=== PATIENT | female | born 1945 | race Caucasian/White ===

== ENCOUNTER 2017-04-07 09:00 | Outpatient (CLI) ==
[2015-08-26 09:44] VITALS: BMI 30.4
--- NOTE | 2017-04-08 08:47 | MAMMO ---
EXAM: Bilateral digital screening mammogram (2-D and 3-D) History: Screening Comparison: Bilateral mammogram 02/25/2016 Findings: MLO and CC views of bilateral breasts demonstrate heterogeneously dense breast parenchyma which can obscure small lesions. CAD was reviewed by the radiologist. Tomosynthesis was performed. Stable benign bilateral vascular calcifications. There are no dominant masses, no suspicious microc alcifications and no architectural distortions Impression: Benign stable mammogram. Recommend followup routine screening mammography in 1 year. BIRADS 2
== END 2017-04-07 09:01 | disposition home or self-care (01) ==
LOC: RAD 09:00
PROVIDERS: ATTEND Internal Medicine
DX: Z12.31 Encounter for screening mammogram for malignant neoplasm of breast (principal)
CPT/HCPCS: 77067

== ENCOUNTER 2017-08-09 06:16 | Day surgery (SDC) ==
[2015-08-26 09:44] VITALS: BMI 30.4
[2017-08-09] MEDS ORDERED: LIDOCAINE 1% 20 ML MDV ID STA (07:04)
[2017-08-09] MEDS ORDERED: DIPRIVAN 20 ML VIAL IVP ONE (08:31)
[2017-08-09] MEDS ORDERED: VERSED ONE (08:31)
[2017-08-09 10:12] VITALS: BP 123/71; TEMP 98
--- NOTE | 2017-08-09 14:33 | OP ---
INDICATIONS FOR PROCEDURE: 72 year old female presents for colonoscopy exam. She had change in her bowl habits with increasing constipation. She has a family history of colon polyps involving her mother in her 30's. MEDICATIONS: SEE ANESTHESIA NOTES. PROCEDURE: COLONOSCOPY. REPORT: The risks, benefits, alternatives and limitations were discussed in detail with the patient. Informed consent was obtained. After adequate sedation was achieved, a digital rectal exam revealed good tone, no masses. The colonoscope was introduced into the rectum and advanced under direct visual guidance to the cecum. The cecum was identified by the appendiceal orifice and IC valve. I then slowly withdrew the scope in circumferential manner and examined the mucosa quite carefully. I looked on the proximal and distal sides of the folds and flexure as best as possible. I was able to retroflex the scope in the right colon and left colon to increase visualization. The colonic mucosa was unremarkably it's entire length except for several small mouth diverticuli scattered throughout the sigmoid area. The anal canal was unremarkable on retroflex view. The prep was good and the withdraw time was 11 minutes and 22 seconds. The patient tolerated the procedure well with stable vital signs and pulse oximetry throughout. IMPRESSION: 1. Diverticulosis RECOMMENDATIONS: 1. High fiber diet 2. Miralax daily and she was instructed to titrate the dose as needed to help with her constipation 3. We will see her back in the office as needed 4. Screening colonoscopy examination again in 10 years if clinically appropriate at that time. ADDENDUM: I spoke to the patient afterwards with her strong family history of multiple colon polyps involving her mother at a young age. I recommend surveillance colonoscopy examination again in 5 years and she was in agreement. DELICIA
== END 2017-08-09 10:00 | disposition home or self-care (01) ==
LOC: SURG 06:16
PROVIDERS: ATTEND Internal Medicine Gastroenterology
DX: K59.00 Constipation, unspecified (principal); K57.30 Diverticulosis of large intestine without perforation or abscess without bleeding; Z83.71 Family history of colonic polyps

== ENCOUNTER 2017-08-29 12:31 | Inpatient (IN) | payer OTHER ==
[2017-08-29] MEDS ORDERED: ATROPINE SULFATE PFS IVP PRN (14:37)
[2017-08-29] MEDS ORDERED: TYLENOL PO PRN (14:37)
[2017-08-29] MEDS ORDERED: MORPHINE 4 MG/ML VIAL IVP PRN (14:37)
[2017-08-29] MEDS ORDERED: VISTARIL INJ IM PRN (14:37)
[2017-08-29] MEDS ORDERED: NITROSTAT SL PRN (14:37)
[2017-08-29] MEDS ORDERED: SOLU-CORTEF 100 MG 125 MG in SODIUM CHLORIDE 100 ML IV ONE (15:10)
[2017-08-29] MEDS: DEXTROSE 5%-1/2NS IV SOLUTION 1,000 ML IV SCH (15:50)
[2017-08-29] MEDS: ROCEPHIN 1 GM in SODIUM CHLORIDE 50 ML IV SCH (15:57)
[2017-08-29] MEDS: ZITHROMAX PO SCH (15:58)
[2017-08-29] MEDS: SOLU-CORTEF 250 MG IVP SCH ×2 (16:02→21:11)
--- NOTE | 2017-08-29 16:36 | DI ---
EXAM: Two-view chest HISTORY: Shortness of breath TECHNIQUE: Frontal and lateral views of the chest were obtained. Comparison 08/26/2015. FINDINGS: The heart is normal size. Lungs are clear. The pulmonary vasculature appears normal. Po stoperative changes of left total shoulder arthroplasty are again seen. IMPRESSION: No active cardiopulmonary disease.
[2017-08-29] MEDS: XOPENEX 1.25 MG NEB SCH (16:45)
[2017-08-29] MEDS: HUMULIN R SUBCUT PRN ×2 (17:37→21:10)
[2017-08-29] MEDS ORDERED: AMARYL ONE (20:59)
[2017-08-29] MEDS ORDERED: NON-FORMULARY MEDICATION (Glimepiride [Amaryl] 4 MG) PO SCH (21:00)
[2017-08-29] MEDS ORDERED: NON-FORMULARY MEDICATION (Temazepam [Temazepam] 30 MG) PO SCH (21:00)
[2017-08-29] MEDS ORDERED: RESTORIL ONE (21:00)
[2017-08-29] MEDS ORDERED: DUONEB NEB SCH (21:00)
[2017-08-29] MEDS: REQUIP PO SCH (21:10)
[2017-08-29] MEDS: SYMBICORT 160-4.5 MCG INHALER IH SCH (21:10)
[2017-08-29] MEDS: NEURONTIN PO SCH (21:11)
[2017-08-30] MEDS: XOPENEX 1.25 MG NEB SCH ×5 (01:03→23:25)
[2017-08-30] MEDS ORDERED: DUONEB NEB PRN (01:23)
[2017-08-30] MEDS: DEXTROSE 5%-1/2NS IV SOLUTION 1,000 ML IV SCH ×2 (04:49→17:45)
[2017-08-30] MEDS: SOLU-CORTEF 250 MG IVP SCH ×3 (04:51→23:53)
[2017-08-30] MEDS: HUMULIN R SUBCUT PRN ×3 (05:54→21:47)
[2017-08-30] MEDS ORDERED: ASPIRIN CHEWABLE PO SCH (08:00)
[2017-08-30] MEDS ORDERED: NON-FORMULARY MEDICATION (Carvedilol [Coreg] 25 MG) PO SCH (08:00)
[2017-08-30] MEDS ORDERED: NON-FORMULARY MEDICATION (Metformin Hcl [Glucophage] 1,000 MG) PO SCH (08:00)
[2017-08-30] MEDS: ROCEPHIN 1 GM in SODIUM CHLORIDE 50 ML IV SCH (08:54)
[2017-08-30] MEDS: ZESTORETIC 20-12.5 MG TAB PO SCH (08:54)
[2017-08-30] MEDS: REQUIP PO SCH ×2 (08:55→21:44)
[2017-08-30] MEDS: JARDIANCE PO SCH (08:55)
[2017-08-30] MEDS: NEURONTIN PO SCH ×2 (08:55→21:44)
[2017-08-30] MEDS: TRIGLIDE PO SCH (08:56)
[2017-08-30] MEDS: COREG PO SCH ×2 (08:56→17:45)
[2017-08-30] MEDS: GLUCOPHAGE PO SCH ×2 (08:56→17:44)
[2017-08-30] MEDS: NORVASC PO SCH (08:57)
[2017-08-30] MEDS: AMARYL PO SCH ×2 (08:57→17:46)
[2017-08-30] MEDS: PLAVIX PO SCH (08:57)
[2017-08-30] MEDS: PROTONIX PO SCH (08:57)
[2017-08-30] MEDS: OMEGA-3 FISH OIL PO SCH (08:57)
[2017-08-30] MEDS: ZITHROMAX PO SCH (08:58)
[2017-08-30] MEDS: SYMBICORT 160-4.5 MCG INHALER IH SCH ×2 (08:58→21:43)
[2017-08-30] MEDS: JANUVIA PO SCH (08:58)
[2017-08-30] MEDS: ASPIRIN EC PO SCH (08:59)
[2017-08-30] MEDS ORDERED: [UNRECOGNIZED DRUG - OTHER] PO SCH (09:00)
[2017-08-30] MEDS ORDERED: NON-FORMULARY MEDICATION (Sitagliptin Phosphate 100 MG) PO SCH (09:00)
[2017-08-30] MEDS ORDERED: FISH OIL PO SCH (09:00)
[2017-08-30] MEDS ORDERED: FATTY ACIDS PO SCH (09:00)
[2017-08-30] MEDS ORDERED: OMEGA PO SCH (09:00)
[2017-08-30] MEDS ORDERED: NON-FORMULARY MEDICATION (Lovastatin [Lovastatin] 40 MG) PO SCH (09:00)
[2017-08-30] MEDS ORDERED: EMPAGLIFLOZIN PO SCH (09:00)
--- NOTE | 2017-08-30 11:07 | PCM.PROG ---
Attending Provider: ATTENDING PROVIDER: Dr. BRINDA SMITH This patient is seen with Yulia Luis, Nurse Practitioner. DATE OF SERVICE: 08/30/17 SUBJECTIVE: This 72 year old WHITE/ F was hospitalized 08/29/17. The patient is sitting in bed alert. She is doing better. She is admitted with acute bronchitis and sinusitis and is feeling a lot better, coughing less. No PND, no orthopnea. No fever or chills. REVIEW OF SYSTEMS: CONSTITUTIONAL: No night sweats. No fatigue, malaise, lethargy. No fever or chills. HEENT: Eyes: No visual changes. No eye pain. No eye discharge. ENT: No runny nose. No epistaxis. No sinus pain. No odynophagia. No congestion. RESPIRATORY: Less cough. No congestion. No hemoptysis. No shortness of breath. CARDIOVASCULAR: No angina symptoms. No CHF symptoms. No atypical chest pain for CAD. No palpitations. No orthopnea.. GASTROINTESTINAL: No abdominal pain. No nausea or vomiting. No diarrhea or constipation. No hematemesis. No hematochezia. GENITOURINARY: No urgency. No frequency. No dysuria. No hematuria. No obstructive symptoms. No discharge. No pain. No significant abnormal bleeding. MUSCULOSKELETAL: No musculoskeletal pain; no joint swelling. NEUROLOGICAL: Awake, alert, oriented to time, place and person. No headache. No neck pain. No syncope. No seizures. No dizziness. PSYCHIATRIC: Not anxious. No depression. No suicidal thoughts. No homicidal thoughts. SKIN: No rash. No lesions. No wounds. ENDOCRINE: No unexplained weight loss. No weight gain. HEMATOLOGIC/LYMPHATIC: No anemia. No purpura. No petechiae. No prolonged or excessive bleeding. No palpable lymph nodes. PHYSICAL EXAMINATION: GENERAL: The patient is awake, alert and oriented, sitting in bed in no distress. VITAL SIGNS: Temperature 97.7 F, Pulse 71, Respiratory Rate 18, BP 117/71, Pulse Ox 98% HEENT: Head normocephalic, atraumatic. Eyes: Extraocular muscles are intact. Pupils are equal, round and reactive to light and accommodation. Ears: No lesions. Nose appeared normal. Throat: No exudate or erythema. NECK: Supple. No JVD, no carotid bruit. No lymphadenopathy or thyromegaly. LUNGS: Decreased breath sounds. Clear to auscultation. Percussion note normal. Chest symmetrical. HEART: S1, S2, no S3. No murmurs. No cyanosis or clubbing. No ascites. Pulses: Dorsalis pedis and posterior tibial pulses +1 to +2 both sides. ABDOMEN: Soft. Non-tender. Bowel sounds active. No CVA tenderness. No mass felt. EXTREMITIES: No edema. Full range of motion of all extremities, equal. NEUROLOGIC: No focal deficit. Cranial nerves II through XII are grossly intact. No headache, no double vision or headache. SKIN: Not dry. Intact. Turgor-normal. LYMPHATIC: No palpable lymph nodes/no lymphedema. MUSCULOSKELETAL: Normal joints with no swelling. Muscle tone is normal. LAB REVIEW: 08/30/17 04:30 08/30/17 04:30 08/30/17 04:30: WBC 14.13 H, RBC 4.20, Hgb 12.5, Hct 37.3, MCV 88.8, MCH 29.8, MCHC 33.5, RDW Coeff of Jerome 14.4, Plt Count 283, Immature Gran % (Auto) 1.5, Neut % (Auto) 83.0, Lymph % (Auto) 11.3, [place] % (Auto) 4.0, Eos % (Auto) 0.1, Baso % (Auto) 0.1, Immature Gran # (Auto) 0.2, Neut # (Auto) 11.8 H, Lymph # ( Auto) 1.6, [place] # (Auto) 0.6, Eos # (Auto) 0.0, Baso # (Auto) 0.0 08/30/17 04:30: Sodium 136, Potassium 3.6, Chloride 100, Carbon Dioxide 24, Anion Gap 15.6, BUN 39 H, Creatinine 1.11, Estimated GFR (MDRD) 48.00, BUN/ Creatinine Ratio 35.13, Glucose 302 H, Calcium 10.9 H, Total Bilirubin 0.5, AST 9 L, ALT 21, Alkaline Phosphatase 55, Total Protein 6.0, Albumin 3.3 L, Globulin 2.7, Albumin/Globulin Ratio 1.22 08/29/17 22:44: Total Creatine Kinase 29, Troponin I 0.0120 08/29/17 22:34: Urine Color Yellow, Urine Clarity Clear, Urine pH 5.0, Ur Specific Webb 1.010, Urine Protein Negative, Urine Glucose (UA) 2+, Urine Ketones Negative, Urine Blood Negative, Urine Nitrite Negative, Urine Bilirubin Negative, Urine Urobilinogen 0.2, Ur Leukocyte Esterase Negative 08/29/17 19:15: Influ A Molecular Assay Negative by naat, Influ B Molecular Assay Negative by naat 08/29/17 14:50: Sodium 140, Potassium 4.2, Chloride 102, Carbon Dioxide 23, Anion Gap 19.2, BUN 27 H, Creatinine 1.09, Estimated GFR (MDRD) 49.00, BUN/ Creatinine Ratio 24.77, Glucose 270 H, Calcium 11.1 H, Total Bilirubin 0.6, AST 14 L, ALT 24, Alkaline Phosphatase 65, Total Creatine Kinase 45, Troponin I < 0.0100, Total Protein 7.2, Albumin 3.8, Globulin 3.4, Albumin/Globulin Ratio 1.12 08/29/17 14:50: WBC 14.48 H, RBC 4.67, Hgb 13.8, Hct 41.7, MCV 89.3, MCH 29.6, MCHC 33.1, RDW Coeff of Jerome 14.6, Plt Count 292, Immature Gran % (Auto) 1.5, Neut % (Auto) 84.1, Lymph % (Auto) 11.4, [place] % (Auto) 2.8, Eos % (Auto) 0.1, Baso % (Auto) 0.1, Immature Gran # (Auto) 0.2, Neut # (Auto) 12.2 H, Lymph # ( Auto) 1.7, [place] # (Auto) 0.4, Eos # (Auto) 0.0, Baso # (Auto) 0.0 ASSESSMENT: 1. Acute bronchitis pneumonitis resolving 2. Chronic lung disease PLAN: 1. Discontinue Temazepam. 2. Klonopin 1 mg at night 3. Continue steroids, antibiotics, and nebs treatment. Plan and coordination of the patient's care discussed in the presence of [employer] Consultant and nurse. CONDITION: Stable SCRIBED BY: IKE PIERCE Rug Hooker scribed while in presence of service performed by Dr. Smith/Yulia Luis APRN on 08/30/17 ([id number])
[2017-08-30] MEDS: MEVACOR PO SCH (17:45)
[2017-08-30] MEDS ORDERED: RESTORIL PO SCH (21:00)
[2017-08-30] MEDS ORDERED: KLONOPIN PO SCH (21:00)
[2017-08-31] MEDS: SOLU-CORTEF 250 MG IVP SCH ×2 (05:10→20:52)
[2017-08-31] MEDS: XOPENEX 1.25 MG NEB SCH ×4 (05:12→22:30)
[2017-08-31] MEDS: PROTONIX PO SCH (05:40)
[2017-08-31] MEDS: HUMULIN R SUBCUT PRN ×3 (05:58→17:19)
[2017-08-31] MEDS: ROCEPHIN 1 GM in SODIUM CHLORIDE 50 ML IV SCH (08:47)
[2017-08-31] MEDS: REQUIP PO SCH ×2 (08:50→21:44)
[2017-08-31] MEDS: PLAVIX PO SCH (08:50)
[2017-08-31] MEDS: ZESTORETIC 20-12.5 MG TAB PO SCH (08:50)
[2017-08-31] MEDS: JARDIANCE PO SCH (08:50)
[2017-08-31] MEDS: COREG PO SCH ×2 (08:52→17:02)
[2017-08-31] MEDS: TRIGLIDE PO SCH (08:52)
[2017-08-31] MEDS: AMARYL PO SCH ×2 (08:52→17:01)
[2017-08-31] MEDS: JANUVIA PO SCH (08:52)
[2017-08-31] MEDS: NORVASC PO SCH (08:53)
[2017-08-31] MEDS: GLUCOPHAGE PO SCH ×2 (08:53→17:00)
[2017-08-31] MEDS: ASPIRIN EC PO SCH (08:54)
[2017-08-31] MEDS: NEURONTIN PO SCH ×2 (08:54→21:44)
[2017-08-31] MEDS: OMEGA-3 FISH OIL PO SCH (08:54)
[2017-08-31] MEDS: ZITHROMAX PO SCH (08:54)
[2017-08-31] MEDS: SYMBICORT 160-4.5 MCG INHALER IH SCH ×2 (08:58→21:44)
--- NOTE | 2017-08-31 10:58 | PCM.PROG ---
Attending Provider: ATTENDING PROVIDER: Dr. BRINDA SMITH This patient is seen with Yulia Luis, Nurse Practitioner. DATE OF SERVICE: 08/31/17 SUBJECTIVE: This 72 year old WHITE/ F was hospitalized 08/29/17. The patient is sitting up in bed, alert. She has been up to bathroom, feels good. She is still somewhat dizzy. REVIEW OF SYSTEMS: CONSTITUTIONAL: Weakness. No night sweats. No malaise, lethargy. No fever or chills. HEENT: Eyes: No visual changes. No eye pain. No eye discharge. ENT: No runny nose. No epistaxis. No sinus pain. No odynophagia. No congestion. RESPIRATORY: Cough. No congestion. No hemoptysis. No shortness of breath. CARDIOVASCULAR: No angina symptoms. No CHF symptoms. No atypical chest pain for CAD. No palpitations. No orthopnea.. GASTROINTESTINAL: No abdominal pain. No nausea or vomiting. No diarrhea or constipation. No hematemesis. No hematochezia. GENITOURINARY: No urgency. No frequency. No dysuria. No hematuria. No obstructive symptoms. No discharge. No pain. No significant abnormal bleeding. MUSCULOSKELETAL: No musculoskeletal pain; no joint swelling. NEUROLOGICAL: Awake, alert, oriented to time, place and person. No headache. No neck pain. No syncope. No seizures. No dizziness. PSYCHIATRIC: Not anxious. No depression. No suicidal thoughts. No homicidal thoughts. SKIN: No rash. No lesions. No wounds. ENDOCRINE: No unexplained weight loss. No weight gain. HEMATOLOGIC/LYMPHATIC: No anemia. No purpura. No petechiae. No prolonged or excessive bleeding. No palpable lymph nodes. PHYSICAL EXAMINATION: GENERAL: The patient is awake, alert and oriented, lying in bed in no distress. VITAL SIGNS: Temperature 97.6 F, Pulse 70, Respiratory Rate 18, BP 102/67, Pulse Ox 93% HEENT: Head normocephalic, atraumatic. Eyes: Extraocular muscles are intact. Pupils are equal, round and reactive to light and accommodation. Ears: No lesions. Nose appeared normal. Throat: No exudate or erythema. NECK: Supple. No JVD, no carotid bruit. No lymphadenopathy or thyromegaly. LUNGS: Diminished breath sounds with rhonchi on the right. Percussion note normal. Chest symmetrical. HEART: S1, S2, no S3. No murmurs. No cyanosis or clubbing. No ascites. Pulses: Dorsalis pedis and posterior tibial pulses +1 to +2 both sides. ABDOMEN: Soft. Non-tender. Bowel sounds active. No CVA tenderness. No mass felt. EXTREMITIES: No edema. Full range of motion of all extremities, equal. NEUROLOGIC: No focal deficit. Cranial nerves II through XII are grossly intact. No headache, no double vision or headache. SKIN: Not dry. Intact. Turgor-normal. LYMPHATIC: No palpable lymph nodes/no lymphedema. MUSCULOSKELETAL: Normal joints with no swelling. Muscle tone is normal. LAB REVIEW: 08/31/17 05:00 08/31/17 05:00 08/31/17 05:00: WBC 13.25 H, RBC 4.24, Hgb 12.7, Hct 37.7, MCV 88.9, MCH 30.0, MCHC 33.7, RDW Coeff of Jerome 14.1, Plt Count 251, Immature Gran % (Auto) 1.3, Neut % (Auto) 82.9, Lymph % (Auto) 11.9, [place] % (Auto) 3.5, Eos % (Auto) 0.2, Baso % (Auto) 0.2, Immature Gran # (Auto) 0.2, Neut # (Auto) 11.0 H, Lymph # ( Auto) 1.6, [place] # (Auto) 0.5, Eos # (Auto) 0.0, Baso # (Auto) 0.0 08/31/17 05:00: Sodium 136, Potassium 3.9, Chloride 99, Carbon Dioxide 28, Anion Gap 12.9, BUN 36 H, Creatinine 1.09, Estimated GFR (MDRD) 49.00, BUN/ Creatinine Ratio 33.02, Glucose 283 H, Calcium 10.8 H, Total Bilirubin 0.4, AST 24, ALT 25, Alkaline Phosphatase 45 L, Total Protein 5.6 L, Albumin 3.2 L, Globulin 2.4, Albumin/Globulin Ratio 1.33 ASSESSMENT: 1. Acute bronchitis pneumonitis resolving 2. Chronic lung disease 3. COPD PLAN: 1. Decrease IV steroids q.12 2. Stop IV fluids 3. Encouraged to be up and about 4. Discontinue Klonopin 1 mg 5. Ativan 1 mg at bedtime 6. Encouraged to drink plenty of water Plan and coordination of the patient's care discussed in the presence of Key Ringer and nurse. CONDITION: Stable SCRIBED BY: IKE PIERCE Security Systems Administrator scribed while in presence of service performed by Dr. Smith/Yulia Luis APRN on 08/31/17 ([id number])
[2017-08-31] MEDS: MEVACOR PO SCH (17:03)
[2017-08-31] MEDS: DEXTROSE 5%-1/2NS IV SOLUTION 1,000 ML IV SCH (20:56)
[2017-08-31] MEDS ORDERED: ATIVAN PO SCH (21:00)
[2017-09-01] MEDS: XOPENEX 1.25 MG NEB SCH (04:22)
[2017-09-01] MEDS: PROTONIX PO SCH (05:41)
[2017-09-01] MEDS: HUMULIN R SUBCUT PRN (06:18)
[2017-09-01] MEDS: OMEGA-3 FISH OIL PO SCH (09:05)
[2017-09-01] MEDS: JANUVIA PO SCH (09:05)
[2017-09-01] MEDS: TRIGLIDE PO SCH (09:06)
[2017-09-01] MEDS: COREG PO SCH (09:06)
[2017-09-01] MEDS: ZESTORETIC 20-12.5 MG TAB PO SCH (09:06)
[2017-09-01] MEDS: NORVASC PO SCH (09:06)
[2017-09-01] MEDS: PLAVIX PO SCH (09:07)
[2017-09-01] MEDS: AMARYL PO SCH (09:07)
[2017-09-01] MEDS: ASPIRIN EC PO SCH (09:07)
[2017-09-01] MEDS: GLUCOPHAGE PO SCH (09:07)
[2017-09-01] MEDS: REQUIP PO SCH (09:07)
[2017-09-01] MEDS: SYMBICORT 160-4.5 MCG INHALER IH SCH (09:08)
[2017-09-01] MEDS: JARDIANCE PO SCH (09:08)
[2017-09-01] MEDS: ROCEPHIN 1 GM in SODIUM CHLORIDE 50 ML IV SCH (09:08)
[2017-09-01] MEDS ORDERED: PREVNAR 13 SYRINGE IM ONE (09:10)
[2017-09-01] MEDS: SOLU-CORTEF 250 MG IVP SCH (09:15)
--- NOTE | 2017-09-01 10:15 | CM.DICTOOL ---
ADMISSION: 08/29/17 12:31 DISCHARGE: 09/01/17 FINAL DIAGNOSIS ACUTE PNEUMONITIS/BRONCHITIS RESOLVING DEHYDRATION COPD POSITIVE FLU AB TITER DM, TYPE 2 TIA, 2016 (PER PATIENT) HYPERTENSION DYSLIPIDEMIA GERD DJD-SPINE CHOLECYSTECTOMY LEFT SHOULDER ARTHROPLASTY, 2014 TOTAL LEFT KNEE ARTHROPLASTY, 2010 TOTAL ABDOMINAL HYSTERECTOMY, 1976 LAST VITALS Temp Pulse Resp BP Pulse Ox 98.4 F 70 16 124/65 99 09/01/17 05:22 09/01/17 05:22 09/01/17 05:22 09/01/17 05:22 09/01/17 05:22 ACTIVE HOME MEDICATIONS Acetaminophen (Tylenol) 650 mg PO Q4H PRN PRN Reason: Headache Albuterol/Ipratropium (Duoneb) 1 vial NEB QID PRN PRN Reason: Bronchospasm Amlodipine Besylate (Norvasc) 5 mg PO DAILY [facility] Last Admin: 09/01/17 09:06 Dose: 5 mg Aspirin (Aspirin Ec) 81 mg PO DAILYWM [facility] Last Admin: 09/01/17 09:07 Dose: 81 mg Budesonide/Formoterol Fumarate (Symbicort 160-4.5 Mcg Inhaler) 2 puff IH BID [facility] Last Admin: 09/01/17 09:08 Dose: 2 puff Carvedilol (Coreg) 25 mg PO BIDWM [facility] Last Admin: 09/01/17 09:06 Dose: 25 mg Clopidogrel Bisulfate (Plavix) 75 mg PO DAILY [facility] Last Admin: 09/01/17 09:07 Dose: 75 mg Fenofibrate (Triglide) 54 mg PO DAILY [facility] Last Admin: 09/01/17 09:06 Dose: 54 mg Fish Oil ([place]-3 Fish Oil) 2,000 mg PO DAILY [facility] Last Admin: 09/01/17 09:05 Dose: 2,000 mg Gabapentin (Neurontin) 300 mg PO BID [facility] Last Admin: 08/31/17 21:44 Dose: 300 mg Glimepiride (Amaryl) 4 mg PO BIDWM [facility] Last Admin: 09/01/17 09:07 Dose: 4 mg Lisinopril/HCTZ (Zestoretic 20-12.5 Mg Tab) 2 tab PO DAILY [facility] Last Admin: 09/01/17 09:06 Dose: 2 tab Lovastatin (Mevacor) 40 mg PO QPM [facility] Last Admin: 08/31/17 17:03 Dose: 40 mg Metformin HCl (Glucophage) 1,000 mg PO BIDWM [facility] Last Admin: 09/01/17 09:07 Dose: 1,000 mg Pantoprazole Sodium (Protonix) 40 mg PO QDAC [facility] Last Admin: 09/01/17 05:41 Dose: 40 mg Ropinirole HCl (Requip) 1 mg PO BID [facility] Last Admin: 09/01/17 09:07 Dose: 1 mg Sitagliptin Phosphate (Januvia) 100 mg PO DAILY [facility] Last Admin: 09/01/17 09:05 Dose: 100 mg ALLERGIES Latex, Natural Rubber Adverse Reaction (Verified 08/10/14 05:08) orange juice Adverse Reaction (Verified 08/07/14 08:19) venom-honey bee [bee venom (honey bee)] Adverse Reaction (Verified 11/18/14 09: 46) orange Adverse Reaction (Uncoded 08/07/14 08:19) NEW PRESCRIPTIONS: NEW MEDICATIONS: 1. ATIVAN 1MG TAKE 1 TABLET DAILY AT BEDTIME 2. TRIAMCINOLOE 0.1% APPLY TO AREAS BID 3. KEFLEX 500MG TAKE 1 CAPSULE 3 TIMES A DAY FOR 7 DAYS. TAKE UNTIL ALL GONE 4. PREDNISONE 10MG TAKE 1 TABLET 2 TIMES A DAY FOR 5 DAYS. TAKE WITH FOOD. SMOKING: STOP SMOKING. AVOID SECOND HAND SMOKE. DISEASE SPECIFIC EDUCATION: PNEUMONIA BRONCHITIS COPD ANTIBIOTICS STEROID THERAPY HOME MEDICATIONS REVIEW SMOKING CESSATION LAB REVIEW: 09/01/17 04:45 09/01/17 04:45 09/01/17 04:45: Sodium 136, Potassium 3.8, Chloride 99, Carbon Dioxide 27, Anion Gap 13.8, BUN 45 H, Creatinine 1.09, Estimated GFR (MDRD) 49.00, BUN/ Creatinine Ratio 41.28, Glucose 275 H, Calcium 10.6 H, Total Bilirubin 0.4, AST 20, ALT 27, Alkaline Phosphatase 47 L, Total Protein 5.7 L, Albumin 3.2 L, Globulin 2.5, Albumin/Globulin Ratio 1.28 09/01/17 04:45: WBC 14.00 H, RBC 4.03 L, Hgb 12.0, Hct 35.5 L, MCV 88.1, MCH 29.8, MCHC 33.8, RDW Coeff of Jerome 14.1, Plt Count 249, Immature Gran % (Auto) 1.1, Neut % (Auto) 83.1, Lymph % (Auto) 12.0, [place] % (Auto) 3.6, Eos % (Auto) 0.1, Baso % (Auto) 0.1, Immature Gran # (Auto) 0.2, Neut # (Auto) 11.6 H, Lymph # (Auto) 1.7, [place] # (Auto) 0.5, Eos # (Auto) 0.0, Baso # (Auto) 0.0 08/29/17 15:23: Influenza Type A Ab 1:32 H, Influenza Type B Ab Negative PLAN: DISCHARGE HOME TODAY 09/01/17. CONTINUE HOME MEDICATIONS PER NURSING INSTRUCTIONS EXCEPT: 1. STOP TEMAZEPAN (RESTORIL) 30MG AT BEDTIME. NEW MEDICATIONS: 1. ATIVAN 1MG TAKE 1 TABLET DAILY AT BEDTIME 2. TRIAMCINOLOE 0.1% APPLY TO AREAS BID 3. KEFLEX 500MG TAKE 1 CAPSULE 3 TIMES A DAY FOR 7 DAYS. TAKE UNTIL ALL GONE 4. PREDNISONE 10MG TAKE 1 TABLET 2 TIMES A DAY FOR 5 DAYS. TAKE WITH FOOD. ACTIVITY: GRADUALLY RESUME ACTIVITY. REST FREQUENTLY. AVOID CROWDS. AVOID EXTREME COLD WEATHER. DIET: 1800 CALORIE ADA DIET. DRINK PLENTY OF FLUIDS ESPECIALLY WATER. NO SMOKING. AVOID SECOND HAND SMOKE. FOLLOW UP WITH DR. SMITH ON TuesdayAugust AT 130PM. PATIENT IS A FULL CODE. SITTING UP IN BED. ALERT AND ORIENTED X 4. Elizabeth KEITH APRN INTO SEE PATIENT. PATIENT STATES SHE FEELS GOOD AND READY TO GO HOME. PATIENT ALSO STATES SHE NEEDS A PNEUMOVAX VACCINE BEFORE SHE LEAVES. Elizabeth KEITH APRN DISCUSSED PLAN OF CARE INCLUDING DISCHARGE INSTRUCTIONS. PATIENT VERBALIZES UNDERSTANDING AND AGREEMENT. APPETITE IS GOOD. VITAL SIGNS ARE STABLE. HAS BEEN AFEBRILE. POX 95% ON ROOM AIR. HEART TONES ARE REGULAR WITH SLD INCLUSION TEACHER REVEALING SINUS RHYTHM. NO C/O PAIN OR DISCOMFORT. LUNGS CLEAR WITH DIMINISHED BREATH SOUNDS. HAS PRODUCTIVE COUGH OF CREAMY/YELLOW SPUTUM. IS UNABLE TO LIE FLAT. HAS DYSPNEA WITH ACTIVITY. ABDOMEN IS SOFT, NON-TENDER WITH BOWEL SOUNDS POSITIVE IN ALL 4 QUADS. PEDAL PULSES POSITIVE WITHOUT EDEMA. HAS SALINE LOCK IN RIGHT FOREARM SITE IS CLEAR. IS INDEPENDENT WITH ACTIVITIES OF DAILY LIVING WITH STEADY GAIT. HAS BEEN UP AMBULATING IN ROOM AND IN SCU WITH SOME DYSPNEA NOTED, DR. BRINDA SMITH MD Elizabeth KEITH APRN
--- NOTE | 2017-09-01 10:26 | PCM.PROG ---
Attending Provider: ATTENDING PROVIDER: Dr. BRINDA SMITH This patient is seen with Yulia Luis, Nurse Practitioner. DATE OF SERVICE: 09/01/17 SUBJECTIVE: This 72 year old WHITE/ F was hospitalized 08/29/17. The patient is sitting in bed, alert. She slept well last night. She no longer is short of breath. She has been eating well, was up and about in the room yesterday. She states she is feeling much better. Cough is improved. REVIEW OF SYSTEMS: CONSTITUTIONAL: No night sweats. No fatigue, malaise, lethargy. No fever or chills. HEENT: Eyes: No visual changes. No eye pain. No eye discharge. ENT: No runny nose. No epistaxis. No sinus pain. No odynophagia. No congestion. RESPIRATORY: Cough improved. No congestion. No hemoptysis. No shortness of breath. CARDIOVASCULAR: No angina symptoms. No CHF symptoms. No atypical chest pain for CAD. No palpitations. No orthopnea.. GASTROINTESTINAL: No abdominal pain. No nausea or vomiting. No diarrhea or constipation. No hematemesis. No hematochezia. GENITOURINARY: No urgency. No frequency. No dysuria. No hematuria. No obstructive symptoms. No discharge. No pain. No significant abnormal bleeding. MUSCULOSKELETAL: No musculoskeletal pain; no joint swelling. NEUROLOGICAL: Awake, alert, oriented to time, place and person. No headache. No neck pain. No syncope. No seizures. No dizziness. PSYCHIATRIC: Not anxious. No depression. No suicidal thoughts. No homicidal thoughts. SKIN: No rash. No lesions. No wounds. ENDOCRINE: No unexplained weight loss. No weight gain. HEMATOLOGIC/LYMPHATIC: No anemia. No purpura. No petechiae. No prolonged or excessive bleeding. No palpable lymph nodes. PHYSICAL EXAMINATION: GENERAL: The patient is awake, alert and oriented, lying/sitting in bed in no distress. VITAL SIGNS: Temperature 98.4 F, Pulse 70, Respiratory Rate 16, BP 124/65, Pulse Ox 99% HEENT: Head normocephalic, atraumatic. Eyes: Extraocular muscles are intact. Pupils are equal, round and reactive to light and accommodation. Ears: No lesions. Nose appeared normal. Throat: No exudate or erythema. NECK: Supple. No JVD, no carotid bruit. No lymphadenopathy or thyromegaly. LUNGS: Diminished breath sounds with no wheeze or rhonchi. Clear to auscultation. Percussion note normal. Chest symmetrical. HEART: S1, S2, no S3. No murmurs. No cyanosis or clubbing. No ascites. Pulses: Dorsalis pedis and posterior tibial pulses +1 to +2 both sides. ABDOMEN: Soft. Non-tender. Bowel sounds active. No CVA tenderness. No mass felt. EXTREMITIES: No edema. Full range of motion of all extremities, equal. NEUROLOGIC: No focal deficit. Cranial nerves II through XII are grossly intact. No headache, no double vision or headache. SKIN: Not dry. Intact. Turgor-normal. LYMPHATIC: No palpable lymph nodes/no lymphedema. MUSCULOSKELETAL: Normal joints with no swelling. Muscle tone is normal. LAB REVIEW: 09/01/17 04:45 09/01/17 04:45 09/01/17 04:45: Sodium 136, Potassium 3.8, Chloride 99, Carbon Dioxide 27, Anion Gap 13.8, BUN 45 H, Creatinine 1.09, Estimated GFR (MDRD) 49.00, BUN/ Creatinine Ratio 41.28, Glucose 275 H, Calcium 10.6 H, Total Bilirubin 0.4, AST 20, ALT 27, Alkaline Phosphatase 47 L, Total Protein 5.7 L, Albumin 3.2 L, Globulin 2.5, Albumin/Globulin Ratio 1.28 09/01/17 04:45: WBC 14.00 H, RBC 4.03 L, Hgb 12.0, Hct 35.5 L, MCV 88.1, MCH 29.8, MCHC 33.8, RDW Coeff of Jerome 14.1, Plt Count 249, Immature Gran % (Auto) 1.1, Neut % (Auto) 83.1, Lymph % (Auto) 12.0, [place] % (Auto) 3.6, Eos % (Auto) 0.1, Baso % (Auto) 0.1, Immature Gran # (Auto) 0.2, Neut # (Auto) 11.6 H, Lymph # (Auto) 1.7, [place] # (Auto) 0.5, Eos # (Auto) 0.0, Baso # (Auto) 0.0 ASSESSMENT: 1. Acute bronchitis/pneumonitis resolving 2. Chronic lung disease 3. COPD 4. Insomnia PLAN: 1. Will give Pneumovax if due. 2. D/C home. 3. Will see back in office next week. 4. Triamcinolone cream 0.1% apply b.i.d. 5. Ativan 1 mg q. h.s. 6. Nebs three times a day. 7. Keflex 500 mg t.i.d. for 7 days 8. Prednisone 10 mg b.i.d. times 5 days. 9. D/C Restoril. Plan and coordination of the patient's care discussed in the presence of Oil Truck Driver and nurse. CONDITION: Stable SCRIBED BY: IKE PIERCE Shredded Filler Cigar Maker Machine scribed while in presence of service performed by Dr. Smith/Yulia Luis APRN on 09/01/17 ([id number])
[2017-09-01 10:35] VITALS: BP 108/73; TEMP 97.6
--- NOTE | 2017-09-02 10:22 | PN ---
DATE OF SERVICE: 09/01/17 SUBJECTIVE: The patient was seen and examined with the Nurse Practitioner. The patient's bronchitis symptoms are much better. Shortness of breath is under control. PHYSICAL EXAMINATION: HEENT: Head normocephalic, atraumatic. Eyes: Extraocular muscles are intact. Pupils are equal, round and reactive to light and accommodation. Ears: No lesions. Nose appeared normal. Throat: No exudate or erythema. NECK: Supple. No JVD, no carotid bruit. No lymphadenopathy or thyromegaly. LUNGS: Decreased breath sounds. Clear to auscultation. Percussion note normal. Chest symmetrical. HEART: S1, S2, no S3. No murmurs. No cyanosis or clubbing. No ascites. Pulses: Dorsalis pedis and posterior tibial pulses +1 to +2 both sides. ABDOMEN: Soft. Nontender. Bowel sounds active. No CVA tenderness. No mass felt. EXTREMITIES: No edema. Full range of motion of all extremities, equal. NEUROLOGIC: No focal deficit. Cranial nerves II through XII are grossly intact. No headache, no double vision or headache. SKIN: Not dry. Intact. Turgor - normal. LYMPHATIC: No palpable lymph nodes/no lymphedema. MUSCULOSKELETAL: Normal joints with no swelling. Muscle tone is normal. PLAN: 1. The patient will be discharged home on Antibiotics, steroids, NEBS TIME SPENT: More than 30 minutes. Plan and coordination of the patient's care discussed in the presence of nurse. DELICIA
--- NOTE | 2017-09-02 10:23 | PN ---
08/29/17: Level 5 08/30/17: Intermediate 08/31/17: Intermediate 09/01/17: D as in discharge MTDD
--- NOTE | 2017-09-05 11:04 | PN ---
DATE OF SERVICE: 08/31/17 SUBJECTIVE: The patient was hospitalized with acute bronchitis and COPD. The patient's condition has steadily improved. She is feeling better and appetite has improved. The patient was seen and examined with Nurse Practitioner. TIME SPENT: More than 30 minutes. Plan and coordination of the patient's care discussed in the presence of nurse. DELICIA
--- NOTE | 2017-09-09 14:51 | DS ---
DATE OF SERVICE: 09/01/17 FINAL DIAGNOSIS: 1. ACUTE PNEUMONITIS/BRONCHITIS RESOLVING 2. DEHYDRATION 3. COPD 4. POSITIVE FLU AB TITER 5. DIABETES MELLITUS TYPE 2 6. TIA, 2016 (PER PATIENT) 7. HYPERTENSION 8. DYSLIPIDEMIA 9. 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 CHOLECYSTECTOMY 12. LEFT SHOULDER ARTHROPLASTY, 2014 13. TOTAL LEFT KNEE ARTHROPLASTY, 2010 14. TOTAL ABDOMINAL HYSTERECTOMY, 1976 DISCHARGE INSTRUCTIONS: Followup appointment scheduled with Dr. Cast on August at 1: 30 p.m. MEDICATIONS AT DISCHARGE: Tylenol 650 mg p.o. q.4h p.r.n. Duoneb one vial neb q.i.d p.r.n. Norvasc 5 mg p.o. daily TRACEE Aspirin 81 mg p.o. daily with meal TRACEE Symbicort 160-4.5 mcg inhaler two puff IH b.i.d. TRACEE Coreg 25 mg p.o. b.i.d. with meal TRACEE Plavix 75 mg p.o. daily TRACEE Triglide 54 mg p.o. daily TRACEE Fish Oil 2,000 mg p.o. daily TRACEE Neurontin 300 mg p.o. b.i.d. TRACEE Amaryl 4 mg p.o. b.i.d. with meal TRACEE Zestoretic 20-12.5 two tab p.o. daily TRACEE Mevacor 40 mg p.o. q.p.m. TRACEE Glucophage 1,000 mg p.o. b.i.d. with meal TRACEE Protonix 40 mg p.o. q.d a.c. TRACEE Requip 1 mg p.o. b.i.d. TRACEE Januvia 100 mg p.o. daily TRACEE NEW PRESCRIPTIONS: 1. Ativan 1 mg one tablet daily at bedtime 2. Triamcinolone cream 0.1% apply to areas b.i.d. 3. Keflex 500 mg one capsule 3 times a day for 7 days. Take until all gone. 4. Prednisone 10 mg one tablet two times a day for 5 days. Take with food. DIET INSTRUCTIONS: 1800 calorie ADA diet, drink plenty of fluids especially water. ACTIVITY: Gradually resume activity. Rest Frequently. Avoid crowds. Avoid extreme cold weather. SMOKING: Stop smoking. Avoid second hand smoke. DISEASE SPECIFIC EDUCATION: Pneumonia Bronchitis COPD Antibiotics Steroid Therapy Home medications review Smoking cessation HOSPITAL COURSE: This is a 72-year-old white female who has a jail history of severe COPD, is a heavy smoker. She presented to the office last week with cough, congestion , low grade fever. We started her on Keflex 500 mg t.i.d. and Prednisone. She presented to the office on the complaining of worsening symptoms. She still had a low grade fever. She was more short of breath. She was feeling weak and dizzy. We admitted her as a direct admit from the office, placed her on Rocephin 1 gm IV daily along with Zithromax 500 mg p.o. daily for three days. Chest x-ray revealed no pneumonia, changes associated with bronchitis and COPD. Kidney function was slightly elevated and she was hypotensive on admission indicating dehydration. She was started on IV fluids, D5 1/2 NS at 75 cc/hr. She was also started on Solu-Cortef 125 mg IV q.8hr along with Xopenex neb treatments q.6hr and 1 to 2L of oxygen p.r.n. Her initial ABGs were not abnormal. Her 02 sat was around 91% on room air. She was in no acute distress. Over the course of several days her wheezing had slowly improved. Yesterday she was transitioned from Solu-Cortef q.8hr to Solu-Cortef q.12 hours. She responded to this transition fairly well. She was able to get up and walk about the room yesterday, walk around without any worsening shortness of breath. Today , she has no wheezing at all upon exam where she initially had severe bilateral wheezing. She is not wearing any oxygen and satting 97 to 99% on room air. We will discharge her home and she is to resume Keflex 500 mg p.o. t.i.d. for the next 7 days along with Prednisone 10 mg b.i.d. for the next 5 days. While in the hospital, she stated that she was having trouble sleeping. She had been having trouble sleeping at home for some time. She had some dry patches on her right elbow, will send her home with Triamcinolone 0.1% cream for eczema. She also had stated that she had been on Temazepam jail for insomnia and this was no longer working. We tried Klonopin 1 mg at bedtime which didn't work and last night she had Ativan 1 mg and she responded effectively so will send her home with a new prescription for Ativan 1 mg at bedtime. Vital signs have been stable. She has been afebrile. Today temperature 98.4, heart rate 70, respirations 16, BP 124/65, pulse ox 99%. Labs are normal. Hemoglobin 12, hematocrit 35.5, white count 14, elevated likely due to steroids. BUN 45, creatinine 1.09, sodium 136, potassium 3.8. She is discharged home. She has neb treatments which she is instructed to do three times a day. She also has supplemental oxygen if needed which she will not. She is to continue her home medications, use nebulizer treatments and will followup with her next week. TIME SPENT: More than 60 minutes. DELICIA
== END 2017-09-01 11:18 | disposition home or self-care (01) | DRG 202 ==
LOC: SCU 12:31
PROVIDERS: ADMIT Internal Medicine; ATTEND Internal Medicine
DX: J20.9 Acute bronchitis, unspecified (principal); J44.0 Chronic obstructive pulmonary disease with (acute) lower respiratory infection; J10.1 Influenza due to other identified influenza virus with other respiratory manifestations; I95.9 Hypotension, unspecified; J32.9 Chronic sinusitis, unspecified; R42 Dizziness and giddiness; G47.00 Insomnia, unspecified; E86.0 Dehydration; E11.9 Type 2 diabetes mellitus without complications; I10 Essential (primary) hypertension; F17.210 Nicotine dependence, cigarettes, uncomplicated; E78.5 Hyperlipidemia, unspecified; K21.9 Gastro-esophageal reflux disease without esophagitis; M47.9 Spondylosis, unspecified; Z86.73 Personal history of transient ischemic attack (TIA), and cerebral infarction without residual deficits; Z79.02 Long term (current) use of antithrombotics/antiplatelets; Z79.84 Long term (current) use of oral hypoglycemic drugs; Z79.899 Other long term (current) drug therapy; Z90.49 Acquired absence of other specified parts of digestive tract
CPT/HCPCS: 36415; 80053; 81001; 82550; 82962; 84484; 85025; 86710; 87070; 87502; 93005; 93010; 94640

== ENCOUNTER 2017-12-22 07:53 | Outpatient (CLI) | payer OTHER ==
--- NOTE | 2017-12-22 08:40 | CT ---
EXAM: CT of the chest without contrast History: Chronic obstructive pulmonary disease, history of smoking Comparison: Chest radiograph 08/29/2017, chest CT 08/12/2014 Technique: Multiplanar CT images through the chest were obtained without the administration of IV co ntrast Findings: Heart size is upper limits of normal. Coronary calcifications. Annular aortic valve calc ifications. No pericardial effusion. No thoracic aortic aneurysm. No pathologically enlarged thora cic lymph nodes. No consolidation. No pleural fluid and no pneumothorax. Diffuse bronchial wall thi ckening. Right middle lobe subsegmental atelectasis or infiltrate. Mild emphysema. 1 cm ground-gla ss nodule within the right lower lobe. 6 mm ground-glass nodule in the right upper lobe. There are several ground-glass nodules within the left upper lobe of the largest measuring 8 mm. Within the visualized upper abdomen, status post cholecystectomy. The liver appears enlarged. No ac angelica osseous abnormalities. Degenerative changes of the spine. Impression: 1. Ground-glass bilateral lung nodules are indeterminate and are more noticeable compared to the margo or study. Recommend follow-up chest CT in 3-6 months. 2. Coronary artery disease. 3. Mild emphysema. 4. Hepatomegaly
== END 2017-12-22 07:54 | disposition home or self-care (01) ==
LOC: RAD 07:53
PROVIDERS: ATTEND Internal Medicine
DX: J44.9 Chronic obstructive pulmonary disease, unspecified (principal); F17.210 Nicotine dependence, cigarettes, uncomplicated

== ENCOUNTER 2018-04-11 10:27 | Outpatient (CLI) | payer OTHER ==
--- NOTE | 2018-04-12 10:05 | MAMMO ---
EXAM: Bilateral digital screening mammogram (2-D and 3-D) History: Screening Comparison: Bilateral mammogram 04/07/2017 Findings: MLO and CC views of bilateral breasts demonstrate heterogeneously dense breast parenchyma which can obscure small lesions. CAD was reviewed by the radiologist. Tomosynthesis was performed. Stable benign bilateral vascular calcifications. There is architectural distortion in the posterior central left breast only seen on the CC view. Impression: Indeterminate architectural distortion within the left breast seen only on the CC view. Recommend further evaluation with tomosynthesis spot compression views and an ML view with tomosynth esis BIRADS 0
== END 2018-04-11 10:28 | disposition home or self-care (01) ==
LOC: RAD 10:27
PROVIDERS: ATTEND Internal Medicine
DX: Z12.31 Encounter for screening mammogram for malignant neoplasm of breast (principal)
CPT/HCPCS: 77067

== ENCOUNTER 2018-05-01 09:18 | Outpatient (CLI) | payer OTHER ==
--- NOTE | 2018-05-01 09:57 | MAMMO ---
EXAM: Left digital diagnostic mammogram (2-D and 3-D) History: Left breast architectural distortion. Comparison: Bilateral mammogram 04/11/2018 Findings: Left breast density is heterogeneous. Additional views of the left breast with tomosynthe sis was performed and confirmed the architectural distortion within the central left breast about 7 c m from nipple. Impression: Indeterminate left breast architectural distortion. Recommend further evaluation with u ltrasound. BIRADS 0
--- NOTE | 2018-05-01 11:44 | US ---
EXAM: Left breast ultrasound. History: Abnormal left mammogram with architectural distortion. Comparison: Left digital diagnostic mammogram 05/01/2018. Technique: Multiple sonographic images through the left breast were obtained. Color duplex Doppler was used to interrogate vascular flow. Findings: At 12 o'clock 5 cm from nipple there is an oval well circumscribed mass measuring 0.7 cm x 0.3 cm x 0.5 cm. It is unsure if this correlates with mammography. No other masses are identified. Impression: Indeterminate 12 o'clock oval left breast mass and unsure if this correlates with the arc hitectural distortion seen on mammography. Recommend further evaluation with breast MRI. BIRADS 0
== END 2018-05-01 09:19 | disposition home or self-care (01) ==
LOC: RAD 09:18
PROVIDERS: ATTEND Internal Medicine
DX: R92.8 Other abnormal and inconclusive findings on diagnostic imaging of breast (principal)

== ENCOUNTER 2018-07-24 12:29 | Outpatient (CLI) | payer OTHER ==
--- NOTE | 2018-07-24 12:53 | DI ---
EXAM: CHEST FRONTAL AND LATERAL VIEWS HISTORY: Cough. COMPARISON: 02/27/2018 FINDINGS: Prominent heart size is stable. There is at least mild atherosclerotic disease. Mild hyp erinflation. There is diffuse, chronic appearing interstitial accentuation. No acute infiltrates ar e seen. No vascular congestion. There is no consolidation, visible pleural fluid or pneumothorax. Bones reveal no acute fracture. Left shoulder prosthesis. IMPRESSION: No acute cardiopulmonary process.
== END 2018-07-24 12:30 | disposition home or self-care (01) ==
LOC: RAD 12:29
PROVIDERS: ATTEND Internal Medicine
DX: R05 Cough (principal)

== ENCOUNTER 2018-07-26 13:47 | Inpatient (IN) | payer OTHER ==
[2018-07-26] MEDS ORDERED: VISTARIL INJ IM PRN (14:42)
[2018-07-26] MEDS ORDERED: TYLENOL PO PRN (14:42)
[2018-07-26] MEDS ORDERED: NITROSTAT SL PRN (14:42)
[2018-07-26] MEDS ORDERED: ATROPINE SULFATE PFS IVP PRN (14:42)
[2018-07-26] MEDS ORDERED: SOLU-MEDROL 125 MG IVP SCH (15:00)
[2018-07-26] MEDS: SODIUM CHLORIDE 1,000 ML IV SCH (15:01)
[2018-07-26 15:18] VITALS: BMI 28.3
[2018-07-26] MEDS: ROCEPHIN 1 GM in SODIUM CHLORIDE 50 ML IV SCH (15:48)
[2018-07-26] MEDS: SOLU-CORTEF 250 MG IVP SCH ×2 (15:48→20:11)
[2018-07-26] MEDS: ZITHROMAX PO SCH (15:48)
--- NOTE | 2018-07-26 15:50 | CT ---
EXAM: CT of the chest without contrast History: Short of breath and chest pain. Comparison: Chest radiograph 07/24/2018, chest CT 05/26/2018 Technique: Multiplanar CT images through the chest were obtained without the administration of IV co ntrast Findings: Heart size is normal. Coronary calcifications. No thoracic aortic aneurysm. No pathologi lanre enlarged thoracic lymph nodes. No consolidation. No pleural fluid and no pneumothorax. No ch arben in the sub-centimeter bilateral ground-glass lung nodules. No developing lung nodules or lung o pacities. No pleural fluid and no pneumothorax. Within the visualized upper abdomen, fatty liver. Status post cholecystectomy. No acute osseous abn ormalities. Left shoulder arthroplasty hardware Impression: 1. No significant interval change in the sub-centimeter bilateral ground-glass lung nodules could be infectious/inflammatory etiology or metastatic. Recommend follow-up chest CT in 6 months. 2. No consolidated pneumonia. 3. Coronary artery disease. 4. Hepatic steatosis
[2018-07-26] MEDS ORDERED: NON-FORMULARY MEDICATION (Carvedilol [Coreg] 25 MG) PO SCH (17:30)
[2018-07-26] MEDS ORDERED: NON-FORMULARY MEDICATION (Metformin Hcl [Glucophage] 1,000 MG) PO SCH (17:30)
[2018-07-26] MEDS: GLUCOPHAGE PO SCH (17:36)
[2018-07-26] MEDS: COREG PO SCH (17:36)
[2018-07-26] MEDS: AMARYL PO SCH (17:36)
[2018-07-26] MEDS: HUMULIN R SUBCUT PRN ×2 (17:37→20:11)
[2018-07-26] MEDS: ZESTORETIC 20-12.5 MG TAB PO SCH (20:10)
[2018-07-26] MEDS: SYMBICORT 160-4.5 MCG INHALER IH SCH (20:10)
[2018-07-26] MEDS: TRIGLIDE PO SCH (20:10)
[2018-07-26] MEDS: OMEGA-3 FISH OIL PO SCH (20:10)
[2018-07-26] MEDS: NEURONTIN PO SCH (20:11)
[2018-07-26] MEDS: REQUIP PO SCH (20:11)
[2018-07-26] MEDS: JANUVIA PO SCH (20:18)
[2018-07-26] MEDS: XOPENEX 1.25 MG NEB SCH (20:20)
[2018-07-26] MEDS ORDERED: NON-FORMULARY MEDICATION (Sitagliptin Phosphate 100 MG) PO SCH (21:00)
[2018-07-26] MEDS ORDERED: NON-FORMULARY MEDICATION (Glimepiride [Amaryl] 4 MG) PO SCH (21:00)
[2018-07-26] MEDS: PULMICORT 0.5 MG/2 ML NEB SCH (21:00)
[2018-07-26] MEDS ORDERED: NON-FORMULARY MEDICATION (Omega-3 Fatty Acids/Fish Oil [Fish Oil 1,000 Mg Capsule] 1 CAP) PO SCH (21:00)
[2018-07-26] MEDS ORDERED: KLONOPIN PO SCH (21:00)
[2018-07-27] MEDS ORDERED: PROTONIX ONE (04:03)
[2018-07-27] MEDS: SOLU-CORTEF 250 MG IVP SCH ×3 (04:10→22:00)
[2018-07-27] MEDS: SODIUM CHLORIDE 1,000 ML IV SCH ×2 (04:10→17:42)
[2018-07-27] MEDS: XOPENEX 1.25 MG NEB SCH ×3 (04:15→20:30)
[2018-07-27] MEDS: PULMICORT 0.5 MG/2 ML NEB SCH ×2 (04:25→20:30)
[2018-07-27] MEDS: PROTONIX PO SCH (05:33)
[2018-07-27] MEDS: HUMULIN R SUBCUT PRN ×3 (05:52→17:07)
[2018-07-27] MEDS ORDERED: ASPIRIN EC PO SCH (08:00)
[2018-07-27] MEDS ORDERED: EMPAGLIFLOZIN PO SCH (09:00)
[2018-07-27] MEDS ORDERED: NON-FORMULARY MEDICATION (Ascorbate Calcium [Vitamin C] 500 MG) PO SCH (09:00)
[2018-07-27] MEDS ORDERED: JARDIANCE PO SCH (09:00)
[2018-07-27] MEDS: ASPIRIN CHEWABLE PO SCH (09:04)
[2018-07-27] MEDS: ROCEPHIN 1 GM in SODIUM CHLORIDE 50 ML IV SCH (09:04)
[2018-07-27] MEDS: ZITHROMAX PO SCH (09:05)
[2018-07-27] MEDS: ZESTORETIC 20-12.5 MG TAB PO SCH ×2 (09:05→22:00)
[2018-07-27] MEDS: COREG PO SCH ×2 (09:05→17:06)
[2018-07-27] MEDS: GLUCOPHAGE PO SCH ×2 (09:05→17:07)
[2018-07-27] MEDS: REQUIP PO SCH ×2 (09:06→22:00)
[2018-07-27] MEDS: NEURONTIN PO SCH ×3 (09:06→22:00)
[2018-07-27] MEDS: PLAVIX PO SCH (09:06)
[2018-07-27] MEDS: VITAMIN C PO SCH (09:06)
[2018-07-27] MEDS: AMARYL PO SCH ×2 (09:06→17:06)
[2018-07-27] MEDS: NORVASC PO SCH (09:06)
[2018-07-27] MEDS: OMEGA-3 FISH OIL PO SCH ×2 (09:06→22:00)
[2018-07-27] MEDS: SYMBICORT 160-4.5 MCG INHALER IH SCH ×2 (09:07→22:00)
--- NOTE | 2018-07-27 12:59 | HP ---
DATE OF SERVICE: 07/26/18 CHIEF COMPLAINT: 1. Shortness of breath worsening. 2. Diarrhea, persistent. HISTORY OF PRESENT ILLNESS: The patient claimed that she began experiencing cough and shortness of breath about three weeks ago. She came to the office and was prescribed two antibiotics and a cough syrup that has Codeine. The patient developed diarrhea, continued taking the antibiotics. The patient felt better last Tuesday07/21/18 about one week prior to this admission and went out of the house and paid bills. The patient, Tuesday07/22/18, again had recurrence of cold with shortness of breath and Tuesday07/23/18, the patient's condition had worsened, diarrhea had persisted now with muscular aches. She presented to the doctor's office again and was advised admission but the patient declined and the patient again was prescribed antibiotics. The problem had persisted and had worsened. She had lost appetite and was unable to sleep very well at night. The Clonazepam that was prescribed had the opposite effects. It did keep her awake. The patient was seen again at the office today and the patient was advised admission and subsequently admitted to my service since Dr. Cast is out of town. Problem is increasing shortness of breath with increased wheezing and persistent diarrhea. PAST MEDICAL HISTORY: The patient had been diagnosed with COPD but continued smoking. She also was diagnosed to have slight stroke or mild one in 2015. The patient persisted to smoke. PAST SURGICAL HISTORY: Appendectomy, total abdominal hysterectomy with BSO, left TKA 2010, left shoulder surgery 2014, diabetes mellitus, insulin independent. The patient was diagnosed to have Scott disease, had both feet operated. Also had cholecystectomy. Pneumonia last year requiring admission to the hospital. FAMILY HISTORY: Mother of myocardial infarction. Father had tuberculosis and in 1952. SOCIAL HISTORY: The patient is and resides with her . She smokes about one pack of cigarettes a day. She is more short of breath. She smokes since it keeps her awake. MEDICATIONS: (Prior to this admission) Aspirin Lovastatin Metformin Glimepiride Fenofibrate Lisinopril Amlodipine Sitagliptin Symbicort 164.5 Ropinirole Gabapentin [place] 3 Fatty acid Plavix Jardiance Carvedilol Duoneb nebulizer ALLERGIES: LATEX, RUBBER, ALOE, ORANGE JUICE, VENOM-HONEYBEE, ORANGE REVIEW OF SYSTEMS: CONSTITUTIONAL: No fever, no chills with some fatigue because of increasing shortness of breath. SENIOR MAINTENANCE MECHANIC: No headaches, no ataxia. No syncopal episode or seizure events. VISUAL: Denies any double vision, blurred vision or transient loss of vision. AUDITORY: Unremarkable. RESPIRATORY: The patient does have cough - nonproductive, shortness of breath, no hemoptysis. CARDIOVASCULAR: Denies any chest pain or chest tightness. No diaphoresis. GI: The patient is able to eat but eating triggers diarrhea. She claims that she cannot keep food - not from vomiting but for the diarrhea. GENITOURINARY: Denies any burning on urination. No incontinence. The patient's diarrhea had persisted for some time but no blood in the stool. MUSCULOSKELETAL: The patient now has some muscular aches since beginning Tuesday , four days ago. INTEGUMENT: Denies any rash, pruritus or ecchymosis. ENDOCRINE: The patient has Type 2 diabetes and is on oral medications. Blood sugar was markedly elevated on admission. HEMATOLOGIC: No history of prolonged bleeding or spontaneous bleeding. No history of spontaneous ecchymosis. PSYCHIATRIC: Affect is normal. PHYSICAL EXAMINATION: GENERAL: 73-year-old female admitted to the hospital because of increasing shortness of breath aggravated by exertion. The patient also has wheezing but no fever. She does have muscular aches since Tuesday, four days ago. VITAL SIGNS: Temperature 97.6, pulse 86, BP 108/60 left, 120/64 right. Respiratory rate 20. Oxygen saturation 94 on room air. This patient has nasal oxygen tonight. I need to discuss that again tonight with the nurse. HEAD: Unremarkable. Scalp: No active dermatitis. Face is symmetrical and equal with no facial weakness. She denies any tenderness in the frontal or maxillary sinus areas to palpation and/or pressure. EYES: Pupils equal/reactive to light, about 3 mm in size and round. Conjunctivae not pale. Sclerae not icteric. MOUTH: Unremarkable. THROAT: No inflammation, tumors or exudate. NECK: No masses. No bruit. No adenopathy. CHEST: Essentially symmetrical and equal with acceptable expansion. LUNGS: Breath sounds are diminished on both sides. No rales but has wheezing both anteriorly and posteriorly. Wheezing mostly expiratory. HEART: Audible and regular with good tones. No murmurs. ABDOMEN: Flat, soft with no remarkable tenderness. No guarding. Bowel sounds are active. No masses palpable. LOWER EXTREMITIES: Pedal pulses anterior tibial present. UPPER EXTREMITIES: Symmetrical and equal. ASSESSMENT: 1. BRONCHITIS EXACERBATION 2. MODERATE HYPOXEMIA 3. CHRONIC TOBACCO USE AND ABUSE, PERSISTENT 4. DIARRHEA, ETIOLOGY UNDETERMINED, MAYBE ANTIBIOTIC ASSOCIATED COLITIS 5. HISTORY OF PNEUMONIA 6. HISTORY OF KNEE SURGERY, TKR 7. SHOULDER SURGERY, LEFT 8. CHOLECYSTECTOMY 9. APPENDECTOMY 10. BILATERAL PEDAL SURGERY 11. TOTAL ABDOMINAL HYSTERECTOMY AND BSO 12. TONSILLECTOMY NOTE: The patient was asked whether she can stop smoking or even consider and the patient said "No she could not". The patient was adamant that she would never stop smoking. She told me that she takes Symbicort and Albuterol that she feels fine. Sometimes she forgets her Albuterol when she is busy. This patient already had a TIA and smoking does increase the chances of having a stroke. This patient however is adamant on not considering even to stop smoking. TIME SPENT: GREATER THAN 65 MINUTES MTDD
[2018-07-27] MEDS: TRIGLIDE PO SCH (22:00)
[2018-07-27] MEDS: KLONOPIN PO SCH (22:00)
[2018-07-27] MEDS: JANUVIA PO SCH (22:00)
[2018-07-28] MEDS: NEURONTIN PO SCH ×3 (02:45→21:56)
[2018-07-28] MEDS: SOLU-CORTEF 250 MG IVP SCH (04:54)
[2018-07-28] MEDS: PULMICORT 0.5 MG/2 ML NEB SCH ×2 (05:04→20:43)
[2018-07-28] MEDS: XOPENEX 1.25 MG NEB SCH ×3 (05:04→20:43)
[2018-07-28] MEDS: PROTONIX PO SCH (05:55)
[2018-07-28] MEDS: HUMULIN R SUBCUT PRN (06:07)
[2018-07-28] MEDS: SODIUM CHLORIDE 1,000 ML IV SCH (06:08)
[2018-07-28] MEDS ORDERED: ROCEPHIN ONE (08:22)
[2018-07-28] MEDS: ASPIRIN CHEWABLE PO SCH (08:34)
[2018-07-28] MEDS: OMEGA-3 FISH OIL PO SCH ×2 (08:35→21:55)
[2018-07-28] MEDS: AMARYL PO SCH ×2 (08:35→17:23)
[2018-07-28] MEDS: ZITHROMAX PO SCH (08:36)
[2018-07-28] MEDS: ZESTORETIC 20-12.5 MG TAB PO SCH ×2 (08:36→21:56)
[2018-07-28] MEDS: REQUIP PO SCH ×2 (08:37→21:56)
[2018-07-28] MEDS: NORVASC PO SCH (08:37)
[2018-07-28] MEDS: GLUCOPHAGE PO SCH ×2 (08:37→17:24)
[2018-07-28] MEDS: COREG PO SCH ×2 (08:38→18:29)
[2018-07-28] MEDS: VITAMIN C PO SCH (08:38)
[2018-07-28] MEDS: PLAVIX PO SCH (08:39)
[2018-07-28] MEDS: ROCEPHIN 1 GM in SODIUM CHLORIDE 50 ML IV SCH (08:42)
[2018-07-28] MEDS: SYMBICORT 160-4.5 MCG INHALER IH SCH ×2 (08:50→21:57)
[2018-07-28] MEDS: NON-FORMULARY MEDICATION (Empagliflozin [Jardiance] 25 MG) PO SCH (08:51)
[2018-07-28] MEDS ORDERED: K-DUR PO SCH (10:00)
[2018-07-28] MEDS ORDERED: K-DUR PO ONE (12:00)
--- NOTE | 2018-07-28 12:30 | PN ---
DATE OF SERVICE: 07/27/18 SUBJECTIVE: The patient is feeling some better according to her. She is not tachypneic nor dyspneic. She was doing a crossword puzzle at the time I walked into the room. OBJECTIVE: She is alert, oriented. Lungs - breath sounds are markedly diminished and minimal wheeze now. It is much improved compared to yesterday. Heart is audible with good tones. Abdomen nontender and no tenderness in the legs. Condition improved. DELICIA
[2018-07-28] MEDS: SOLU-CORTEF 100 MG IVP SCH ×2 (12:45→21:57)
[2018-07-28] MEDS ORDERED: SOLU-CORTEF 250 MG IVP SCH (13:00)
[2018-07-28] MEDS: KLONOPIN PO SCH (21:55)
[2018-07-28] MEDS: TRIGLIDE PO SCH (21:57)
[2018-07-28] MEDS: JANUVIA PO SCH (22:02)
[2018-07-29] MEDS: PULMICORT 0.5 MG/2 ML NEB SCH (04:43)
[2018-07-29] MEDS: XOPENEX 1.25 MG NEB SCH (04:43)
[2018-07-29] MEDS: SOLU-CORTEF 100 MG IVP SCH ×2 (05:43→13:09)
[2018-07-29] MEDS: PROTONIX PO SCH (05:45)
[2018-07-29] MEDS: HUMULIN R SUBCUT PRN ×2 (06:28→11:53)
[2018-07-29] MEDS: ROCEPHIN 1 GM in SODIUM CHLORIDE 50 ML IV SCH (08:40)
[2018-07-29] MEDS: NON-FORMULARY MEDICATION (Empagliflozin [Jardiance] 25 MG) PO SCH (08:43)
[2018-07-29] MEDS: SYMBICORT 160-4.5 MCG INHALER IH SCH (08:43)
[2018-07-29] MEDS: ZESTORETIC 20-12.5 MG TAB PO SCH (08:44)
[2018-07-29] MEDS: OMEGA-3 FISH OIL PO SCH (08:44)
[2018-07-29] MEDS: GLUCOPHAGE PO SCH (08:44)
[2018-07-29] MEDS: COREG PO SCH (08:44)
[2018-07-29] MEDS: AMARYL PO SCH (08:45)
[2018-07-29] MEDS: PLAVIX PO SCH (08:45)
[2018-07-29] MEDS: REQUIP PO SCH (08:46)
[2018-07-29] MEDS: NORVASC PO SCH (08:46)
[2018-07-29] MEDS: NEURONTIN PO SCH (08:46)
[2018-07-29] MEDS: ZITHROMAX PO SCH (08:46)
[2018-07-29] MEDS: ASPIRIN CHEWABLE PO SCH (08:47)
[2018-07-29] MEDS: VITAMIN C PO SCH (08:47)
[2018-07-29 13:32] VITALS: BP 121/65; TEMP 98.1
[2018-07-29] MEDS ORDERED: JANUVIA PO SCH (21:00)
--- NOTE | 2018-07-31 14:30 | DS ---
DATE OF SERVICE: 07/29/18 PATIENT IDENTIFICATION: 73 year old female patient of Dr. Soto was admitted to my service, since he is on vacation. HOSPITAL COURSE: The patient claimed to have had cough for about 3-4 weeks and was prescribed antibiotics, but the problem persisted. The patient had a CT scan of the chest without contrast showing no significant interval change in the sub-centimeter bilateral ground-glass nodules. Recommend a repeat in 6 months. No consolidation pneumonia. Coronary artery disease based on coronary calcifications. Also, hepatic steatosis was noted. The patient had moderate hypoxemia on ABG with slight acidosis. The patient had diarrhea, but the clostridium difficile testing was negative for toxigenic clostridium difficile by DNA amplification. Sputum culture showed normal darian. The patient was given Azithromycin 500 mg IV for three days and Rocephin 1 gram daily for four days. The Clonazepam was increased to 1 mg at bedtime while in the hospital. She was on 0.5 mg at home. The patient's temperature had remained normal. Blood pressure was stable and normal. The patient's oxygen had been discontinued and the oxygen saturation remained constant at about 95 since yesterday. It did register between 98 to 100, although at the time of her discharge the patient's oxygen saturation was 93 at room air. Her vital signs at 1:31 p.m. showed a temperature of 98.1, pulse 73, blood pressure 121/65, respiratory rate 18, oxygen saturation 93 at room air. She is alert, oriented times four, not dyspneic, nor tachypneic. The is present and Jody the nurse was also present. The patient denied any chest pain or abdominal pain. No problems with loose bowel movements. LUNGS: She claims that she is doing well and no longer short of breath. The lungs has diminished breath sounds, again very minimal air exchange. No rales or wheezing appreciated. HEART: Audible and regular with good tones. ABDOMEN: Nontender. LOWER EXTREMITIES: Anterior tibials are present. No tenderness in the calf muscles. The patient again repeated that her inhaler is helping her and sometimes she even forgets to use it. I did tell her that the best treatment she could have is to stop smoking. The was present and the is also a smoker. I informed them that she has the antibiotics on board already and since there was no rafael pneumonia on the CT that no further antibiotics will be given. She was also given steroids while in the hospital. This also had been stopped and she should just resume all her home medications. She should see Dr. Cast next week and discuss the medication with regards to Klonopin. She had been prescribed 0.5 mg, but increased that to 1 mg during this hospitalization. The rapid A and B influenza were negative. Mycoplasma IGG and IGM were negative. FINAL DIAGNOSES: 1. ACUTE EXACERBATION OF CHRONIC OBSTRUCTIVE LUNG DISEASE 2. CHRONIC TOBACCO USE AND ABUSE, PERSISTENT 3. PERIPHERAL ARTERIAL DISEASE, ABSENT POSTERIOR TIBIAL PULSES 4. HISTORY OF TOTAL KNEE REPLACEMENT 5. HISTORY OF LEFT SHOULDER SURGERY 6. SURGICAL HISTORY; CHOLECYSTECTOMY, APPENDECTOMY, BILATERAL FOOT SURGERY, TOTAL ABDOMINAL HYSTERECTOMY WITH BSO AND TONSILLECTOMY TIME SPENT: GREATER THAN 30 MINUTES MTDD
--- NOTE | 2018-07-31 14:40 | PN ---
DATE OF VISIT: 07/28/18 The patient was seen about 7 o'clock in the evening and was alert, oriented times four, feeling better and not using any oxygen. She claims that she is feeling well and more or less ready to go home. VITAL SIGNS: At 2 p.m. showed a temperature of 97.5, blood pressure 131/66, respiratory rate 18, oxygen saturation 95 at room air. GENERAL: Her color is good and she is not dyspneic, nor tachypneic. LUNGS: Breath sounds are markedly diminished in both sides. I could hear a few rales at the left base, but not constant. What is very significant is a very minimal air exchange. HEART: Audible and regular with good tones. ABDOMEN: Nontender. CBC now shows a normal WBC at 9,400, hemoglobin and hematocrit borderline, blood sugar elevated, but less than admission. Probably due to steroids also. Her fasting insulin is 16.3, near to the upper limits of normal. Plasma C Peptide is 6.3. Her A1C is 8.10. The NT Pro BNP was 191. The cardiac enzymes were normal. Procalcitonin was less than 0.05. CONDITION: Improved. This patient received Azithromax, as well as Rocephin. MICAD
== END 2018-07-29 14:05 | disposition home or self-care (01) | DRG 203 ==
LOC: MEDSURG A 13:47
PROVIDERS: ADMIT General Practice; ATTEND General Practice
DX: J40 Bronchitis, not specified as acute or chronic (principal); I73.9 Peripheral vascular disease, unspecified; I25.10 Atherosclerotic heart disease of native coronary artery without angina pectoris; R06.02 Shortness of breath; R19.7 Diarrhea, unspecified; R09.02 Hypoxemia; K76.0 Fatty (change of) liver, not elsewhere classified; Z72.0 Tobacco use
CPT/HCPCS: 36415; 80053; 81001; 82550; 82803; 82962; 83036; 83519; 83525; 83880; 84145; 84484; 84681; 85025; 86631; 86632; 86710; 86738; 87070; 87493; 87502; 93005; 93010; 94640

== ENCOUNTER 2018-11-09 15:18 | Outpatient (CLI) ==
[2018-11-09 21:52] VITALS: BMI 27.9
== END 2018-11-09 15:24 | disposition critical access hospital (66) ==
LOC: AMBL 15:18
PROVIDERS: ATTEND Internal Medicine
DX: R40.4 Transient alteration of awareness (principal); R53.1 Weakness; R41.82 Altered mental status, unspecified

== ENCOUNTER 2018-11-09 15:37 | Inpatient (IN) ==
[2018-11-09] MEDS ORDERED: INSTA-CHAR W/ SORBITOL PO STA (16:24)
[2018-11-09] MEDS ORDERED: ZOSYN 4.5 GM 4.5 GM in SODIUM CHLORIDE 100 ML IV STA (16:26)
[2018-11-09] MEDS: LEVOPHED 4 MG in SODIUM CHLORIDE 246 ML IV SCH ×2 (16:45→23:29)
--- NOTE | 2018-11-09 18:05 | ED.PDOC ---
General ED Provider: Dr. BERNICE BAEZ Chief Complaint: Altered Mental Status Stated Complaint: MAN STATED IT WAS HARD GET HIS AWAKE BUT SHE FINALLY WOKE UP ARRIVED AOX 3. SAID NORMALLY PT BETWEEN 9 TO 10 AM SHE GOT UP AND DID HER DAILY ROUTINE . AROUND 1 PM NOTICED PT SLEPT TILL 2.30 PM THEN HAD A HARD TIME GETTING HER UP. Time Seen by Physician: 15:40 Mode of Arrival: Walk-In Information Source: Patient Exam Limitations: No limitations Primary Care Provider: BRINDA SMITH Nursing and Triage Documentation Reviewed and Agree: Yes Does patient meet sepsis criteria?: No System Inflammatory Response Syndrome: Not Applicable Sepsis Protocol: For patient's 13 years and over: Temp is 96.8 and below OR 101 and greater Pulse >90 BPM Resp >20/minute Acutely Altered Mental Status Are patient's symptoms suggestive of a new infection, such as: -Pneumonia -Skin, Soft Tissue -Endocarditis -UTI -Bone, Joint Infection -Implantable Device -Acute Abdominal Infection -Wound Infection -Meningitis -Blood Stream Catheter Infection -Unknown Respiratory Complaint Exam - Respiratory Complaint/Exam Onset/Duration: TODAY Symptoms Are: Still present Timing: Constant Initial Severity: Severe Current Severity: Severe Location: Chest Character: Reports: Non-productive cough, Dry cough Alleviating: Reports: None Associated Signs and Symptoms: Reports: Rapid breathing, Dyspnea, Chills. Denies: Fever, Chest pain, Pleuritic chest pain, Wheezing, Hemoptysis, Dizziness , Calf pain, Calf swelling, Edema, URI, Nasal congestion, Hoarseness, Sinus discomfort, Vomiting, Sore throat, Weight loss, Decreased oral intake, Increased thirst, Increased appetite, Increased urination Related Surgical History: Reports: None Pulmonary Embolism Risk Factors: Bedrest, Smoking Review of Systems - Review Of Systems Constitutional: Reports: Malaise, Weakness Eyes: Reports: No symptoms Ears, Nose, Mouth, Throat: Reports: No symptoms Respiratory: Reports: Short of air Cardiac: Reports: No symptoms GI: Reports: No symptoms : Reports: No symptoms Musculoskeletal: Reports: No symptoms Skin: Reports: No symptoms Neurological: Reports: No symptoms Endocrine: Reports: No symptoms Hematologic/Lymphatic: Reports: No symptoms All Other Systems: Reviewed and Negative Past Medical History - Past Medical History Previously Healthy: No Endocrine: Reports: DM 2, Dyslipidemia Cardiovascular: Reports: Hypertension Respiratory: Reports: COPD Hematological: Reports: None Gastrointestinal: Reports: None Genitourinary: Reports: Unknown Neuro/Psych: Reports: TIA Musculoskeletal: Reports: None Cancer: Reports: None Last Menstrual Period: N/A - Surgical History General Surgical History: Reports: None - Family History Family History: Reports: None - Social History Smoking Status: Current every day smoker Hx Substance Use: No Alcohol Screening: None - Immunizations Tetanus Shot up to Date: No Physical Exam - Physical Exam Appearance: Ill-appearing Ill-appearing: Severe Pain Distress: Mild Eyes: VIDA, EOMI, Conjunctiva clear ENT: Ears normal, Nose normal, Oropharynx normal Respiratory: Breath sounds diminished, Rhonchi Cardiovascular: Bradycardia GI/: Soft, Nontender, No masses, Bowel sounds normal, No Organomegaly Musculoskeletal: Normal strength, ROM intact, No edema, No calf tenderness Skin: Warm, Dry, Normal color Neurological: Sensation intact, Motor intact, Reflexes intact, Cranial nerves intact, Alert, Oriented Psychiatric: Affect appropriate, Mood appropriate Interpretation - Organ Teacher Rate: Normal Rhythm: Sinus Ectopy: None - EKG Interpretation Rate: Normal Rhythm: Sinus Ectopy: None [place]: NL Re-Evaluation - Re-Evaluation Time of Re-Evaluation: 16:00 Status: Worse Vital Signs Stable: No (PT'S BLOOD PRESSURE WAS LOW N.S BLOUS GIVEN) Pain Level: 0 Appearance: Other (ACUTELY ILL BUT ABLE TO UNDER STAND PT REFUSING INTUBATION RISKS DISCUSSED PRESENT MARLENE WILDER AND DARSHAN. PT REFUSED INTUBATION) Lungs: Other (DECREASED BREATH SOUND) Skin: Warm and Dry Neuro: Other (TACHYCARDIC) CV: RRR Additional Comments: ALSO SPOKE TO THE PT AND PT REFUSED INTUBATION - Re-Evaluation Time of Re-Evaluation: 04:30 (18:50 GASES ARE NOT IMPROVING AGAIN I INFORMED THAT SHE CAN IF THE GASES GET WORSE PT STILL DECLINED INTUBATION.) Status: Unchanged Vital Signs Stable: No Pain Level: 0 Appearance: NAD Skin: Warm and Dry Neuro: Alert and Oriented X3 CV: RRR (TIME 18:50) Additional Comments: DECLINED INTUBATION. RONNI FROM RESP DEPT PRESENT AT ALL TIME. Physician Notification - Case Discussed Physician Notified: LUIS Time of Notification: 18:15 ( D.N.R ORDER DISCUSSED , CT HEAD PENDING PMD WOULD LIKE MORE INFORMATION AFTER HEAD CT) Physician Notified: CARA Time of Notification: 19:00 Endorsed To/Discussed With: pmd Time of Discussion: 19:12 (admitt stated to start dopamine along the levophed) Admit To: Inpatient Critical Care Note - Critical Care Note Total Time (mins): 120 Course - Course Hematology/Chemistry: 11/09/18 16:00 11/09/18 16:00 Orders, Labs, Meds: Lab Review 11/09/18 11/09/18 11/09/18 15:50 16:00 16:00 WBC 9.41 RBC 3.57 L Hgb 8.7 L Hct 30.6 L MCV 85.7 MCH 24.4 L MCHC 28.4 L RDW Coeff of Jerome 15.8 H Plt Count 280 Immature Gran % (Auto) 0.5 Neut % (Auto) 77.9 Lymph % (Auto) 16.0 [place] % (Auto) 4.7 Eos % (Auto) 0.7 Baso % (Auto) 0.2 Immature Gran # (Auto) 0.1 Neut # (Auto) 7.3 H Lymph # (Auto) 1.5 [place] # (Auto) 0.4 Eos # (Auto) 0.1 Baso # (Auto) 0.0 Hypochromasia 1+ Anisocytosis Not present Microcytosis 1+ Puncture Site Rr O2 Saturation 65.0 L ABG pH 7.198 L* ABG pCO2 75.9 H ABG pO2 43.0 L* ABG HCO3 29.5 H ABG Total CO2 32 H ABG Base Excess 1 Nathanael Test + O2 Delivery Device FiO2 % 21.0 Sodium 139.0 Potassium 4.72 Chloride 98.1 Carbon Dioxide 32.4 H Anion Gap 13.22 BUN 37.1 H Creatinine 2.81 H Estimated GFR (MDRD) 17.00 BUN/Creatinine Ratio 13.20 Glucose 156.8 H Lactic Acid Calcium 9.82 Total Bilirubin 0.28 AST 22.8 ALT 14.3 Alkaline Phosphatase 48.1 L Total Creatine Kinase 353.6 H CK-MB (CK-2) 8.400 H* CK-MB (CK-2) % 2.3700 Troponin I < 0.012 Total Protein 6.35 Albumin 4.36 Globulin 1.99 Albumin/Globulin Ratio 2.19 Procalcitonin 11/09/18 11/09/18 11/09/18 16:46 16:46 18:16 WBC RBC Hgb Hct MCV MCH MCHC RDW Coeff of Jerome Plt Count Immature Gran % (Auto) Neut % (Auto) Lymph % (Auto) [place] % (Auto) Eos % (Auto) Baso % (Auto) Immature Gran # (Auto) Neut # (Auto) Lymph # (Auto) [place] # (Auto) Eos # (Auto) Baso # (Auto) Hypochromasia Anisocytosis Microcytosis Puncture Site Rr O2 Saturation 98.0 ABG pH 7.137 L* ABG pCO2 84.5 H ABG pO2 138.0 H ABG HCO3 28.6 H ABG Total CO2 31 H ABG Base Excess 0 Nathanael Test + O2 Delivery Device Bipap FiO2 % 60.0 Sodium Potassium Chloride Carbon Dioxide Anion Gap BUN Creatinine Estimated GFR (MDRD) BUN/Creatinine Ratio Glucose Lactic Acid 0.84 Calcium Total Bilirubin AST ALT Alkaline Phosphatase Total Creatine Kinase CK-MB (CK-2) CK-MB (CK-2) % Troponin I Total Protein Albumin Globulin Albumin/Globulin Ratio Procalcitonin 0.20 Orders Category Date Time Status ABG DRAW REQUEST Stat CARDIO 11/09/18 15:50 Completed ABG DRAW REQUEST Stat CARDIO 11/09/18 18:16 Ordered EKG-(ED ONLY) Stat CARDIO 11/09/18 15:41 Completed ABG Stat LAB 11/09/18 15:50 Completed ABG Stat LAB 11/09/18 18:16 Completed BLOOD CULTURE Stat LAB 11/09/18 16:46 Received CBC W/ AUTO DIFF Stat LAB 11/09/18 16:00 Completed COMPREHENSIVE METABOLIC PANEL Stat LAB 11/09/18 16:00 Completed CREATINE KINASE Stat LAB 11/09/18 16:00 Completed LACTIC ACID Stat LAB 11/09/18 16:46 Completed PROCALCITONIN Stat LAB 11/09/18 16:46 Completed RBC MORPHOLOGY Stat LAB 11/09/18 16:00 Completed TROPONIN I Stat LAB 11/09/18 16:00 Completed 0.9 % Sodium Chloride [Sodium Chloride] 246 ml MEDS 11/09/18 17:00 Active Norepinephrine Bitartrate Inj [Levophed] 4 mg IV 8 mcg/min Piperacillin Sodium/Tazobactam [Zosyn 4.5 gm] 4.5 gm MEDS 11/09/18 16:26 Discontinued 0.9 % Sodium Chloride [Sodium Chloride] 100 ml IV ONCE CHEST, 1V AP ONLY Stat RADS 11/09/18 18:[address] HEAD W/O CONTRAST Stat RADS 11/09/18 15:41 Ordered Medications Generic Name Dose Route Start Last Admin Trade Name Freq PRN Reason Stop Dose Admin Norepinephrine Bitartrate 4 mg 250 mls @ 30 mls/hr 11/09/18 17:00 11/09/18 18 :53 / Sodium Chloride IV 10 mcg/min .[id number] TRACEE 37.5 mls/hr Titration Protocol 8 MCG/MIN Discontinued Medications Generic Name Dose Route Start Last Admin Trade Name Freq PRN Reason Stop Dose Admin Piperacillin Sod/Tazobactam 100 mls @ 100 mls/hr 11/09/18 16:26 Sod 4.5 gm/ Sodium Chloride IV 11/09/18 17:25 ONCE STA Vital Signs: Temp Pulse Resp BP Pulse Ox 11/09/18 18:53 68 24 52/37 L 11/09/18 18:44 100 11/09/18 17:26 100/74 11/09/18 16:55 100 11/09/18 16:45 66 16 81/46 L 11/09/18 15:38 98.5 F 66 28 H 73/46 L 96 Departure - Departure Time of Disposition: 19:12 Disposition: ADMITTED INPATIENT Discharge Problem: Anemia Renal failure Qualifiers: Acute renal failure type: unspecified Chronic kidney disease stage: unspecified stage Instructions: Anemia (ED) Condition: Good Pt referred to PMD for follow-up: Yes IPMP verified?: No Allergies/Adverse Reactions: Allergies aloe Adverse Reaction (Verified 11/09/18 15:41) Latex, Natural Rubber Adverse Reaction (Verified 11/09/18 15:41) orange juice Adverse Reaction (Verified 11/09/18 15:41) venom-honey bee [bee venom (honey bee)] Adverse Reaction (Verified 11/09/18 15: 41) orange Adverse Reaction (Uncoded 11/09/18 15:41) Home Medications: Ambulatory Orders Aspirin [Aspirin Chewable] 81 mg PO DAILY 08/06/14 Fenofibrate 54 mg PO BEDTIME 08/06/14 Glimepiride [Amaryl] 4 mg PO BID 08/06/14 Lovastatin 40 mg PO 1700 08/06/14 Metformin HCl [Glucophage] 1,000 mg PO BIDWM 08/06/14 Lisinopril/Hydrochlorothiazide [Zestoretic 20-12.5 mg Tab] 1 tab PO BID Amlodipine Besylate [Norvasc] 5 mg PO DAILY 08/26/15 Budesonide/Formoterol Fumarate [Symbicort 160-4.5 Mcg Inhaler] 2 puff INH BID Sitagliptin Phosphate [Januvia] 100 mg PO BEDTIME 08/26/15 Gabapentin 300 mg PO TID 08/05/17 Ropinirole HCl [Requip] 1 mg PO BID 08/05/17 Carvedilol [Coreg] 25 mg PO BIDWM 08/29/17 Clopidogrel Bisulfate [Plavix] 1 tab PO DAILY 08/29/17 Ipratropium/Albuterol Neb [Duoneb] 1 vial NEB QID 08/29/17 [place]-3 Fatty Acids/Fish Oil [Fish Oil 1,000 mg Capsule] 1 cap PO BID 08/29/17 Ascorbate Calcium [Vitamin C] 500 mg PO QAM 07/26/18 Ipratropium/Albuterol Neb [Duoneb] 1 vial NEB QID 07/26/18 Pantoprazole Sodium [Protonix] 40 mg PO QDAC 07/26/18 Empagliflozin [Jardiance] 25 mg PO DAILY 07/27/18 Lorazepam 1 mg PO BEDTIME 11/09/18
--- NOTE | 2018-11-09 18:24 | DI ---
Exam: Chest one-view History: Shortness of breath FINDINGS: Normal cardiomediastinal contours. Normal pulmonary vasculature. The lungs are hyperexpa nded. No focal infiltrate. Probable breast shadowing in the left base. No acute chest wall abnorma lity. Impression: Senescent chest with possible component of chronic obstructive pulmonary disease. Left basilar hazy density favoring a breast shadowing. Non portable PA and lateral projection would be useful.
[2018-11-09] MEDS ORDERED: VANCOMYCIN 1 GM in SODIUM CHLORIDE 250 ML IV STA (19:15)
[2018-11-09] MEDS ORDERED: SOLU-CORTEF 100 MG IVP STA (19:24)
[2018-11-09] MEDS ORDERED: DOPAMINE 400 MG in PREMIX 250 ML D5W 1 BAG IV SCH (19:30)
[2018-11-09] MEDS ORDERED: DOPAMINE IV ONE (20:14)
[2018-11-09] MEDS: DOPAMINE 400 MG in PREMIX 250 ML D5W 1 BAG IV SCH (20:15)
[2018-11-09] MEDS: SODIUM CHLORIDE 1,000 ML IV SCH (21:31)
[2018-11-09 21:52] VITALS: BMI 27.9
[2018-11-09] MEDS: SOLU-MEDROL 40 MG IVP SCH ×2 (22:14→22:15)
[2018-11-09] MEDS: HUMULIN R SUBCUT PRN (23:13)
[2018-11-09] MEDS: DUONEB NEB SCH (23:26)
[2018-11-10] MEDS: SODIUM CHLORIDE 1,000 ML IV SCH ×3 (04:24→20:21)
[2018-11-10] MEDS: DUONEB NEB SCH ×4 (04:48→23:15)
[2018-11-10] MEDS ORDERED: DOPAMINE IV ONE ×2 (05:15→15:49)
[2018-11-10] MEDS: DOPAMINE 400 MG in PREMIX 250 ML D5W 1 BAG IV SCH ×2 (05:18→15:55)
[2018-11-10] MEDS: HUMULIN R SUBCUT PRN ×4 (06:10→20:22)
--- NOTE | 2018-11-10 10:01 | PCM.PROG ---
Attending Provider: ATTENDING PROVIDER: Dr. BRINDA SMITH DATE OF SERVICE: 11/10/18 SUBJECTIVE: This 73 year old WHITE/ F was hospitalized 11/09/18 with acute respiratory failure and hypotension. The patient has severe chronic lung disease and is a heavy smoker. The patient is on Levophed in the ER with systolic blood pressure 50-60. Atrial blood gasses showed severe respiratory acidosis with Co2 retention. The patient is a DNR. She is also in kidney failure but the patient and family declined to be transferred for further care to any other facility. Her condition is steadily improving. Blood gasses were pCO2 62, pO2 67 and pH 7.2 this morning on 40% BI-PAP. Blood pressure systolic is close to 100, still on Levophed and Dopamine and still trying to wean off the Levophed. REVIEW OF SYSTEMS: CONSTITUTIONAL: No night sweats. No fatigue, malaise, lethargy. No fever or chills. HEENT: Eyes: No visual changes. No eye pain. No eye discharge. ENT: No runny nose. No epistaxis. No sinus pain. No odynophagia. No congestion. RESPIRATORY: No cough, no congestion. No hemoptysis. No shortness of breath. CARDIOVASCULAR: No angina symptoms. No CHF symptoms. No atypical chest pain for CAD. No palpitations. No orthopnea.. GASTROINTESTINAL: No abdominal pain. No nausea or vomiting. No diarrhea or constipation. No hematemesis. No hematochezia. GENITOURINARY: No urgency. No frequency. No dysuria. No hematuria. No obstructive symptoms. No discharge. No pain. No significant abnormal bleeding. MUSCULOSKELETAL: No musculoskeletal pain; no joint swelling. NEUROLOGICAL: Awake, alert, oriented to place and person. No headache. No neck pain. No syncope. No seizures. No dizziness. PSYCHIATRIC: Not anxious. No depression. No suicidal thoughts. No homicidal thoughts. SKIN: No rash. No lesions. No wounds. ENDOCRINE: No unexplained weight loss. No weight gain. HEMATOLOGIC/LYMPHATIC: No anemia. No purpura. No petechiae. No prolonged or excessive bleeding. No palpable lymph nodes. PHYSICAL EXAMINATION: GENERAL: The patient is awake, alert and oriented, lying in bed in no distress. VITAL SIGNS: Temperature 98.3 F, Pulse 108, Respiratory Rate 21, BP 97/71, Pulse Ox 92% HEENT: Head normocephalic, atraumatic. Eyes: Extraocular muscles are intact. Pupils are equal, round and reactive to light and accommodation. Ears: No lesions. Nose appeared normal. Throat: No exudate or erythema. NECK: Supple. No JVD, no carotid bruit. No lymphadenopathy or thyromegaly. LUNGS: Better air entry. Clear to auscultation. Percussion note normal. Chest symmetrical. HEART: S1, S2, no S3. No murmurs. No cyanosis or clubbing. No ascites. Pulses: Dorsalis pedis and posterior tibial pulses +1 to +2 both sides. ABDOMEN: Soft. Non-tender. Bowel sounds active. No CVA tenderness. No mass felt. EXTREMITIES: No edema. Full range of motion of all extremities, equal. NEUROLOGIC: No focal deficit. Cranial nerves II through XII are grossly intact. No headache, no double vision or headache. SKIN: Warm and dry. Intact. Turgor-normal. LYMPHATIC: No palpable lymph nodes/no lymphedema. MUSCULOSKELETAL: Normal joints with no swelling. Muscle tone is normal. LAB REVIEW: 11/10/18 05:00 11/10/18 05:00 11/10/18 05:00: Sodium 142.8, Potassium 4.85, Chloride 106.4, Carbon Dioxide 25.7, Anion Gap 15.55, BUN 34.1 H, Creatinine 1.79 H D, Estimated GFR (MDRD) 28.00, BUN/Creatinine Ratio 19.05, Glucose 171.3 H, Calcium 8.94, Total Bilirubin 0.47, AST 40.5 H, ALT 19.8, Alkaline Phosphatase 51.4 L, Total Protein 6.57, Albumin 4.46, Globulin 2.11, Albumin/Globulin Ratio 2.11 11/10/18 05:00: WBC 10.68 H, RBC 3.64 L, Hgb 8.6 L, Hct 31.1 L, MCV 85.4, MCH 23.6 L, MCHC 27.7 L, RDW Coeff of Jerome 16.0 H, Plt Count 298, Immature Gran % ( Auto) 2.1, Neut % (Auto) 90.5, Lymph % (Auto) 6.0 L, [place] % (Auto) 1.0, Eos % ( Auto) 0.1, Baso % (Auto) 0.3, Immature Gran # (Auto) 0.2, Neut # (Auto) 9.7 H, Lymph # (Auto) 0.6, [place] # (Auto) 0.1 L, Eos # (Auto) 0.0, Baso # (Auto) 0.0, Hypochromasia 1+, Anisocytosis Not present 11/10/18 04:27: Puncture Site Rb, O2 Saturation 88.0 L, ABG pH 7.209 L*, ABG pCO2 62.7 H, ABG pO2 67.0 L, ABG HCO3 25, ABG Total CO2 27, ABG Base Excess -3 L , Nathanael Test +, O2 Delivery Device Bipap, FiO2 % 40.0 11/10/18 01:50: Total Creatine Kinase 530.5 H, CK-MB (CK-2) 11.600 H*, CK-MB (CK -2) % 2.1800, Troponin I 0.047 11/09/18 19:29: Puncture Site Rb, O2 Saturation 85.0 L, ABG pH 7.117 L*, ABG pCO2 86.1 H, ABG pO2 69.0 L, ABG HCO3 27.8 H, ABG Total CO2 30 H, ABG Base Excess -2, Nathanael Test +, O2 Delivery Device Bipap, FiO2 % 32.0 11/09/18 18:16: Puncture Site Rr, O2 Saturation 98.0, ABG pH 7.137 L*, ABG pCO2 84.5 H, ABG pO2 138.0 H, ABG HCO3 28.6 H, ABG Total CO2 31 H, ABG Base Excess 0 , Nathanael Test +, O2 Delivery Device Bipap, FiO2 % 60.0 11/09/18 16:46: Lactic Acid 0.84 11/09/18 16:46: Procalcitonin 0.20 11/09/18 16:00: Sodium 139.0, Potassium 4.72, Chloride 98.1, Carbon Dioxide 32.4 H, Anion Gap 13.22, BUN 37.1 H, Creatinine 2.81 H, Estimated GFR (MDRD) 17.00, BUN/Creatinine Ratio 13.20, Glucose 156.8 H, Calcium 9.82, Total Bilirubin 0.28, AST 22.8, ALT 14.3, Alkaline Phosphatase 48.1 L, Total Creatine Kinase 353.6 H, CK-MB (CK-2) 8.400 H*, CK-MB (CK-2) % 2.3700, Troponin I < 0.012 , Total Protein 6.35, Albumin 4.36, Globulin 1.99, Albumin/Globulin Ratio 2.19 11/09/18 16:00: WBC 9.41, RBC 3.57 L, Hgb 8.7 L, Hct 30.6 L, MCV 85.7, MCH 24.4 L, MCHC 28.4 L, RDW Coeff of Jerome 15.8 H, Plt Count 280, Immature Gran % (Auto) 0.5, Neut % (Auto) 77.9, Lymph % (Auto) 16.0, [place] % (Auto) 4.7, Eos % (Auto) 0.7, Baso % (Auto) 0.2, Immature Gran # (Auto) 0.1, Neut # (Auto) 7.3 H, Lymph # (Auto) 1.5, [place] # (Auto) 0.4, Eos # (Auto) 0.1, Baso # (Auto) 0.0, Hypochromasia 1+, Anisocytosis Not present, Microcytosis 1+ 11/09/18 15:50: Puncture Site Rr, O2 Saturation 65.0 L, ABG pH 7.198 L*, ABG pCO2 75.9 H, ABG pO2 43.0 L*, ABG HCO3 29.5 H, ABG Total CO2 32 H, ABG Base Excess 1, Nathanael Test +, FiO2 % 21.0 ASSESSMENT: Please see below. 1. Respiratory failure 2. Hypotension on vasopressors 3. Severe chronic lung disease 4. Diabetes Mellitus 5. Severe Anemia 6. Renal failure PLAN: 1. Continue IV fluids 2. Watch for fluid overload 3. Try to wean off Levophed 4. Monitor blood gasses 5. Continue steroids 6. The patient was started on Zosyn for possible sepsis likely urosepsis Plan and coordination of the patient's care discussed in the presence of Lime Boiler and nurse. CONDITION: Stable SCRIBED BY: REMY MENDOZA, Gas Flow Regulator scribed while in presence of service performed by Dr. BRINDA SMITH on 11/10/18 ([id number])
[2018-11-10] MEDS: SOLU-MEDROL 40 MG IVP SCH ×2 (10:27→20:27)
[2018-11-10] MEDS: ASPIRIN CHEWABLE PO SCH (10:28)
[2018-11-10] MEDS: PLAVIX PO SCH (10:28)
[2018-11-10] MEDS: ZOSYN 3.375 GM 3.375 GM in SODIUM CHLORIDE 50 ML IV SCH ×2 (11:31→17:13)
[2018-11-10] MEDS: COREG PO SCH (16:32)
[2018-11-10] MEDS ORDERED: NITROSTAT SL PRN (22:22)
[2018-11-10] MEDS ORDERED: TYLENOL PO PRN (22:22)
[2018-11-10] MEDS ORDERED: ATROPINE SULFATE PFS IVP ONE (22:22)
[2018-11-10] MEDS ORDERED: VISTARIL INJ IM PRN (22:22)
[2018-11-10] MEDS: COLACE PO SCH (22:46)
[2018-11-10] MEDS: XANAX PO PRN (22:46)
[2018-11-11] MEDS: ZOSYN 3.375 GM 3.375 GM in SODIUM CHLORIDE 50 ML IV SCH ×5 (01:22→23:53)
[2018-11-11] MEDS: DUONEB NEB SCH ×3 (04:10→16:30)
[2018-11-11] MEDS: SODIUM CHLORIDE 1,000 ML IV SCH ×2 (04:32→12:25)
[2018-11-11] MEDS: HUMULIN R SUBCUT PRN ×2 (06:07→16:56)
[2018-11-11] MEDS ORDERED: ASPIRIN EC PO SCH (08:00)
[2018-11-11] MEDS: ASPIRIN CHEWABLE PO SCH (08:08)
[2018-11-11] MEDS: COLACE PO SCH ×3 (08:08→20:59)
[2018-11-11] MEDS: COREG PO SCH ×2 (08:09→16:55)
[2018-11-11] MEDS: PLAVIX PO SCH (08:09)
[2018-11-11] MEDS: SOLU-MEDROL 40 MG IVP SCH ×2 (08:09→20:58)
[2018-11-11] MEDS: XANAX PO PRN ×3 (10:50→22:36)
[2018-11-11] MEDS: DOPAMINE 400 MG in PREMIX 250 ML D5W 1 BAG IV SCH ×2 (12:50→12:51)
[2018-11-11] MEDS: LEVOPHED 4 MG in SODIUM CHLORIDE 246 ML IV SCH ×2 (12:51→12:52)
[2018-11-11] MEDS ORDERED: SODIUM CHLORIDE 1,000 ML IV SCH (18:00)
[2018-11-12] MEDS: ZOSYN 3.375 GM 3.375 GM in SODIUM CHLORIDE 50 ML IV SCH ×3 (05:01→16:59)
[2018-11-12] MEDS: DUONEB NEB SCH ×5 (05:30→23:00)
[2018-11-12] MEDS: HUMULIN R SUBCUT PRN ×3 (06:23→21:09)
[2018-11-12] MEDS: SODIUM CHLORIDE 1,000 ML IV SCH (06:59)
[2018-11-12] MEDS: COLACE PO SCH ×3 (08:41→21:10)
[2018-11-12] MEDS: PLAVIX PO SCH (08:41)
[2018-11-12] MEDS: ASPIRIN CHEWABLE PO SCH (08:41)
[2018-11-12] MEDS: COREG PO SCH ×2 (08:41→16:59)
[2018-11-12] MEDS: SOLU-MEDROL 40 MG IVP SCH ×2 (08:42→21:09)
[2018-11-13] MEDS: ZOSYN 3.375 GM 3.375 GM in SODIUM CHLORIDE 50 ML IV SCH ×3 (00:46→12:26)
[2018-11-13] MEDS: DUONEB NEB SCH ×4 (04:50→23:22)
[2018-11-13] MEDS: HUMULIN R SUBCUT PRN ×2 (06:12→21:26)
[2018-11-13] MEDS: COREG PO SCH ×2 (09:21→17:10)
[2018-11-13] MEDS: ASPIRIN CHEWABLE PO SCH (09:21)
[2018-11-13] MEDS: PLAVIX PO SCH (09:22)
[2018-11-13] MEDS: COLACE PO SCH ×3 (09:22→21:00)
[2018-11-13] MEDS: SOLU-MEDROL 40 MG IVP SCH (09:22)
[2018-11-13] MEDS: PREDNISONE PO SCH (17:10)
[2018-11-13] MEDS: CIPRO PO SCH (21:00)
[2018-11-13] MEDS: XANAX PO PRN (21:01)
[2018-11-13 22:13] VITALS: TEMP 97.7
[2018-11-14] MEDS: DUONEB NEB SCH ×2 (05:00→11:04)
[2018-11-14] MEDS: CIPRO PO SCH (05:14)
[2018-11-14 06:03] VITALS: BP 138/64
[2018-11-14] MEDS ORDERED: NON-FORMULARY MEDICATION (Sitagliptin Phosphate 100 MG) PO SCH (08:15)
[2018-11-14] MEDS ORDERED: NON-FORMULARY MEDICATION (Carvedilol [Coreg] 25 MG) PO SCH (08:15)
[2018-11-14] MEDS ORDERED: JANUVIA PO SCH ×2 (08:30→21:00)
[2018-11-14] MEDS ORDERED: ZESTORETIC 20-12.5 MG TAB PO SCH (09:00)
[2018-11-14] MEDS: ASPIRIN CHEWABLE PO SCH (09:00)
[2018-11-14] MEDS: PLAVIX PO SCH (09:01)
[2018-11-14] MEDS: PREDNISONE PO SCH (09:01)
[2018-11-14] MEDS: COREG PO SCH (09:01)
[2018-11-14] MEDS: COLACE PO SCH (09:01)
[2018-11-14] MEDS: K-DUR PO SCH ×2 (09:04→12:34)
--- NOTE | 2018-11-14 10:42 | PCM.PROG ---
Attending Provider: ATTENDING PROVIDER: Dr. BRINDA SMITH This patient is seen with Yulia Luis, Nurse Practitioner. DATE OF SERVICE: 11/14/18 SUBJECTIVE: This 73 year old WHITE/ F was hospitalized 11/09/18. The patient is sitting in the chair resting comfortably. Cough improved. No fever. She is eating well. The patient will go home today. REVIEW OF SYSTEMS: CONSTITUTIONAL: No night sweats. No fatigue, malaise, lethargy. No fever or chills. HEENT: Eyes: No visual changes. No eye pain. No eye discharge. ENT: No runny nose. No epistaxis. No sinus pain. No odynophagia. No congestion. RESPIRATORY: Cough and congestion. No hemoptysis. No shortness of breath. CARDIOVASCULAR: No angina symptoms. No CHF symptoms. No atypical chest pain for CAD. No palpitations. No orthopnea.. GASTROINTESTINAL: No abdominal pain. No nausea or vomiting. No diarrhea or constipation. No hematemesis. No hematochezia. GENITOURINARY: No urgency. No frequency. No dysuria. No hematuria. No obstructive symptoms. No discharge. No pain. No significant abnormal bleeding. MUSCULOSKELETAL: No musculoskeletal pain; no joint swelling. NEUROLOGICAL: Awake, alert, oriented to time, place and person. No headache. No neck pain. No syncope. No seizures. No dizziness. PSYCHIATRIC: Not anxious. No depression. No suicidal thoughts. No homicidal thoughts. SKIN: No rash. No lesions. No wounds. ENDOCRINE: No unexplained weight loss. No weight gain. HEMATOLOGIC/LYMPHATIC: No anemia. No purpura. No petechiae. No prolonged or excessive bleeding. No palpable lymph nodes. PHYSICAL EXAMINATION: GENERAL: The patient is awake, alert and oriented, sitting in chair in no distress. VITAL SIGNS: Temperature 97.7 F, Pulse 81, Respiratory Rate 24, BP 138/64, Pulse Ox 92% HEENT: Head normocephalic, atraumatic. Eyes: Extraocular muscles are intact. Pupils are equal, round and reactive to light and accommodation. Ears: No lesions. Nose appeared normal. Throat: No exudate or erythema. NECK: Supple. No JVD, no carotid bruit. No lymphadenopathy or thyromegaly. LUNGS: Bilateral rhonchi with expiratory wheeze. Percussion note normal. Chest symmetrical. HEART: S1, S2, no S3. No murmurs. No cyanosis or clubbing. No ascites. Pulses: Dorsalis pedis and posterior tibial pulses +1 to +2 both sides. ABDOMEN: Soft. Non-tender. Bowel sounds active. No CVA tenderness. No mass felt. EXTREMITIES: No edema. Full range of motion of all extremities, equal. NEUROLOGIC: No focal deficit. Cranial nerves II through XII are grossly intact. No headache, no double vision or headache. SKIN: Not dry. Intact. Turgor-normal. LYMPHATIC: No palpable lymph nodes/no lymphedema. MUSCULOSKELETAL: Normal joints with no swelling. Muscle tone is normal. LAB REVIEW: 11/14/18 05:00 11/14/18 05:00 11/14/18 05:00: Sodium 139.2, Potassium 3.11 L, Chloride 106.3, Carbon Dioxide 27.9, Anion Gap 8.11, BUN 14.1, Creatinine 0.54 L, Estimated GFR (MDRD) 111.00, BUN/Creatinine Ratio 26.11, Glucose 136.3 H, Calcium 9.40, Total Bilirubin 0.55 , AST 19.5, ALT 22.5, Alkaline Phosphatase 40.8 L, Total Protein 5.33 L, Albumin 3.48 L, Globulin 1.85, Albumin/Globulin Ratio 1.88 11/14/18 05:00: WBC 8.66, RBC 4.18 L, Hgb 10.4 L, Hct 34.1 L, MCV 81.6, MCH 24.9 L, MCHC 30.5 L, RDW Coeff of Jerome 16.8 H, Plt Count 217, Immature Gran % ( Auto) 0.7, Neut % (Auto) 71.8, Lymph % (Auto) 17.0, [place] % (Auto) 10.3 H, Eos % (Auto) 0.1, Baso % (Auto) 0.1, Immature Gran # (Auto) 0.1, Neut # (Auto) 6.2, Lymph # (Auto) 1.5, [place] # (Auto) 0.9, Eos # (Auto) 0.0, Baso # (Auto) 0.0 ASSESSMENT: 1. Respiratory failure, resolved 2. Hypotension on vasopressors, resolved 3. Severe chronic lung disease 4. Diabetes Mellitus 5. Severe Anemia 6. Renal failure PLAN: 1. Discharge home. 2. Restart Januvia. 3. Potassium 40 mEq twice before discharge then 20 mEq daily for five days. 4. Cipro times five more days. 5. Prednisone 20 mg b.i.d for 5 days then daily for three days. 6. Three step for . 7. The patient is to be seen in the office for followup on Tuesday. 8. Resume Zestoretic daily. Plan and coordination of the patient's care discussed in the presence of Outsole Skiver and nurse. EDUCATION: CONDITION: SCRIBED BY: IKE PIERCE Lawn Sprinkler Installer scribed while in presence of service performed by Dr. Smith/Yulia Luis APRN on 11/14/18 ([id number])
[2018-11-14] MEDS: HUMULIN R SUBCUT PRN (11:36)
--- NOTE | 2018-11-14 12:05 | CM.DICTOOL ---
ADMISSION: 11/09/18 20:11 DISCHARGE: NOVEMBER 14, 2018 DATE OF SERVICE: 11/14/18 FINAL DIAGNOSIS ACUTE RESPIRATORY FAILURE HYPOTENSION ALTERED MENTAL STATUS HYPOKALEMIA ANEMIA, TRANSFUSION 2 UNITS PACKED CELLS COPD HYPERTENSION TIA, 2016 B12 DEFICIENCY DIABETES MELLITUS, TYPE 2 GERD TOBACCO ABUSE, 1/2 PPD HEPATIC STEATOSIS SHOULDER REPLACEMENT, LEFT TOTAL KNEE REPLACEMENT, LEFT CHOLECYSTECTOMY HYSTERECTOMY COLONOSCOPY ( 07/2017) DR. JUAREZ HEAVY SMOKER Temp Pulse Resp BP Pulse Ox 97.7 F 81 24 138/64 92 L 11/14/18 06:00 11/14/18 06:00 11/14/18 06:00 11/14/18 06:00 11/14/18 06:00 TAKE THESE MEDICATIONS AT HOME Albuterol/Ipratropium (Duoneb) 1 vial NEB RTQ6H [facility] Last Admin: 11/14/18 11:04 Dose: 1 vial Aspirin (Aspirin Chewable) 81 mg PO DAILYWM [facility] Last Admin: 11/14/18 09:00 Dose: 81 mg Carvedilol (Coreg) 12.5 mg PO BIDWM [facility] Last Admin: 11/14/18 09:01 Dose: 12.5 mg Ciprofloxacin (Cipro) 500 mg PO BIDCIPRO [facility] Stop: 11/16/18 20:59 Last Admin: 11/14/18 05:14 Dose: 500 mg Clopidogrel Bisulfate (Plavix) 75 mg PO DAILY [facility] Last Admin: 11/14/18 09:01 Dose: 75 mg Lisinopril/HCTZ (Zestoretic 20-12.5 Mg Tab) 1 tab PO DAILY [facility] Last Admin: 11/14/18 09:01 Dose: 1 tab Potassium Chloride (K-Dur) 20 meq PO DAILY [facility] FOR 5 DAYS Last Admin: 11/14/18 09:04 Dose: 40 meq Prednisone (Prednisone) 20 mg PO BIDWM [facility] FOR 5 DAYS, THEN DAILY FOR 3 DAYS Last Admin: 11/14/18 09:01 Dose: 20 mg Sitagliptin Phosphate (Januvia) 100 mg PO BEDTIME [facility] Last Admin: Ropinirole HCL (Requip) 1 mg PO BID [facility] Last Admin: Pantoprazole Sodium (Protonix ) 40 mg PO DAILY Last Admin: [place]-3 Fatty Acids/Fish Oil 1000 mg PO BID Last Admin: Lovastatin 40 mg PO Nader DAILY Last Admin: Lorazepam 1 mg PO BEDTIME Last Admin: Gabapentin 300 mg PO TID [facility] Last Admin: Fenofibrate 54 mg PO BEDTIME Last Admin: Symbicort 160-4.5 Mcg Inhaler 2 PUFF INH BID Last Admin: ALLERGIES aloe Adverse Reaction (Verified 11/09/18 15:41) Latex, Natural Rubber Adverse Reaction (Verified 11/09/18 15:41) orange juice Adverse Reaction (Verified 11/09/18 15:41) venom-honey bee [bee venom (honey bee)] Adverse Reaction (Verified 11/09/18 15: 41) orange Adverse Reaction (Uncoded 11/09/18 15:41) DISCONTINUED MEDICATIONS METFORMIN AMARYL JARDIANCE AMLODIPINE MEDICATION CHANGES DECREASE ZESTORETIC 20-12.5 TO DAILY DECREASE COREG TO 12.5 MG BID NEW PRESCRIPTIONS: CIPRO 500 MG BID FOR 5 DAYS PREDNISONE 20 MG BID FOR 5 DAYS, THEN DAILY FOR 3 DAYS TAKE WITH FOOD K-DUR 20 MEQ DAILY FOR 5 DAYS SMOKING: PATIENT IS A SMOKER, BUT REPORTS SHE IS GOING TO TRY TO STOP SMOKING SMOKING CESSATION DISCUSSED DISEASE SPECIFIC EDUCATION: SMOKING CESSATION MEDICATION CHANGES PRESCRIPTIONS ACTIVITY USE OF STEROIDS AND RISK OF GI IRRITATION, BONE DEMINERALIZATION LAB REVIEW: 11/14/18 05:00 11/14/18 05:00 11/14/18 05:00: Sodium 139.2, Potassium 3.11 L, Chloride 106.3, Carbon Dioxide 27.9, Anion Gap 8.11, BUN 14.1, Creatinine 0.54 L, Estimated GFR (MDRD) 111.00, BUN/Creatinine Ratio 26.11, Glucose 136.3 H, Calcium 9.40, Total Bilirubin 0.55 , AST 19.5, ALT 22.5, Alkaline Phosphatase 40.8 L, Total Protein 5.33 L, Albumin 3.48 L, Globulin 1.85, Albumin/Globulin Ratio 1.88 11/14/18 05:00: WBC 8.66, RBC 4.18 L, Hgb 10.4 L, Hct 34.1 L, MCV 81.6, MCH 24.9 L, MCHC 30.5 L, RDW Coeff of Jerome 16.8 H, Plt Count 217, Immature Gran % ( Auto) 0.7, Neut % (Auto) 71.8, Lymph % (Auto) 17.0, [place] % (Auto) 10.3 H, Eos % (Auto) 0.1, Baso % (Auto) 0.1, Immature Gran # (Auto) 0.1, Neut # (Auto) 6.2, Lymph # (Auto) 1.5, [place] # (Auto) 0.9, Eos # (Auto) 0.0, Baso # (Auto) 0.0 PLAN: DISCHARGE HOME WITH SPOUSE DIET: CONSISTENT CARBOHYDRATES ACTIVITY: GRADUALLY RESUME TOLERATED AVOID OUTSIDE EXERTION IN EXTREMELY HOT, HUMID WEATHER CONTINUE TO USE NEBULIZER TREATMENTS AT HOME AT LEAST 4 TIMES DAILY AN APPOINTMENT IS SCHEDULED WITH DR. SMITH/SUSANA KEITH APRN ON October AT 8 :15 AM CODE STATUS: DNR MRS. SOTO IS ALERT AND ORIENTED X 3. SHE LIVES AT HOME WITH HER SPOUSE. SHE IS AGREEABLE TO PLANS FOR DISCHARGE HOME TODAY AND REPORTS HER WILL TRANSPORT HER HOME. SHE IS INDEPENDENT WITH ACTIVITIES OF DAILY. SHE TRANSFERS HERSELF FROM THE BED TO THE CHAIR AND IS AMBULATORY WITHOUT STAFF ASSISTANCE. SHE DOES NOT REQUIRE USE OF AN ASSISTIVE DEVICE WITH AMBULATION. HER GAIT IS STEADY. SHE HAS A NEBULIZER AT HOME FOR HER USE. SHE WAS EVALUATED FOR THE NEED FOR HOME OXYGEN, BUT OXYGEN SATURATION AT REST WAS 95% AND 91% WITH AMBULATION. MEAL INTAKES ARE GOOD AT 75-100%. SHE IS CONTINENT OF BOWEL AND BLADDER. SKIN TURGOR IS GOOD, SKIN IS INTACT AND FREE OF DECUBITUS ULCERS. _ MD SUSANA BURKS APRN
--- NOTE | 2018-11-14 12:06 | ECHO2D ---
Date of Exam: 11/13/18 Ordering Physician: DR. BRINDA SMITH Room #: [id number] Reason for Echo: SOB, RENAL FAILURE M-Mode Normal Adult Results LV Dimensions Normal Adult Results AoV Opening excursions >1.6 >1.6 LVEDD-base- 3.5-5.8 5.0 Ao root dimensions 2.0-3.7 3.5 LVESD-base- 3.1-4.6 L. Atrium dimensions 1.9-3.8 4.8 Post. Wall thickness 0.8-1.1 1.3 IV septum (thickness) 0.7-1.2 1.2 Post. Wall excursion 0.72-1.3 NORMAL Septal motion NORMAL Systolic motion R. Ventricular cavity 1.5-2.0 NORMAL LVEF 60% 55% Paradoxical septal wall motion NORMAL 2-D : ENLARGED LEFT ATRIAL CAVITY--NORMAL LEFT VENTRICULAR CONTRACTILITY-- NORMAL VALVES, NO THROMBUS, SMALL PERICARDIAL EFFUSION M -MODE: MV: NORMAL AV: NORMAL TV: NORMAL PV: CHAMBER SIZE: ENLARGED LEFT ATRIAL CAVITY WALL MOTION: NORMAL PERICARDIUM: SMALL PERICARDIAL EFFUSION INTERPRETATION: 1. LEFT VENTRICULAR HYPERTROPHY WITH ENLARGED LEFT ATRIAL CAVITY 2. NORMAL LEFT VENTRICULAR CONTRACTILITY 3. NORMAL VALVES 4. SMALL PERICARDIAL EFFUSION MTDD
--- NOTE | 2018-11-16 09:09 | DS ---
DATE OF SERVICE: 11/14/18 FINAL DIAGNOSIS: ACUTE RESPIRATORY FAILURE HYPOTENSION ALTERED MENTAL STATUS HYPOKALEMIA ANEMIA, TRANSFUSION 2 UNITS PACKED CELLS COPD HYPERTENSION TIA, 2016 B12 DEFICIENCY DIABETES MELLITUS, TYPE 2 GERD TOBACCO ABUSE, 1/2 PPD HEPATIC STEATOSIS SHOULDER REPLACEMENT, LEFT TOTAL KNEE REPLACEMENT, LEFT CHOLECYSTECTOMY HYSTERECTOMY COLONOSCOPY ( 07/2017) DR. JUAREZ HEAVY SMOKER LAST VITALS: Temp Pulse Resp BP Pulse Ox 97.7 F 81 24 138/64 92 L 11/14/18 06:00 11/14/18 06:00 11/14/18 06:00 11/14/18 06:00 11/14/18 06:00 DISCHARGE INSTRUCTIONS: DISCHARGE HOME WITH SPOUSE. CONTINUE TO USE NEBULIZER TREATMENTS AT HOME AT LEAST 4 TIMES DAILY. AN APPOINTMENT IS SCHEDULED WITH DR. SMITH/SUSANA KEITH APRN ON October AT 8 :15 AM. CODE STATUS: DNR TAKE THESE MEDICATIONS AT HOME: Albuterol/Ipratropium (Duoneb) 1 vial NEB RTQ6H [facility] Aspirin (Aspirin Chewable) 81 mg PO DAILYWM [facility] Carvedilol (Coreg) 12.5 mg PO BIDWM [facility] Ciprofloxacin (Cipro) 500 mg PO BIDCIPRO [facility] Clopidogrel Bisulfate (Plavix) 75 mg PO DAILY [facility] Lisinopril/HCTZ (Zestoretic 20-12.5 Mg Tab) 1 tab PO DAILY [facility] Potassium Chloride (K-Dur) 20 meq PO DAILY [facility] FOR 5 DAYS Prednisone (Prednisone) 20 mg PO BIDWM [facility] FOR 5 DAYS, THEN DAILY FOR 3 DAYS Sitagliptin Phosphate (Januvia) 100 mg PO BEDTIME [facility] Ropinirole HCL (Requip) 1 mg PO BID [facility] Pantoprazole Sodium (Protonix ) 40 mg PO DAILY [place]-3 Fatty Acids/Fish Oil 1000 mg PO BID Lovastatin 40 mg PO Nader DAILY Lorazepam 1 mg PO BEDTIME Gabapentin 300 mg PO TID [facility] Fenofibrate 54 mg PO BEDTIME Symbicort 160-4.5 Mcg Inhaler 2 PUFF INH BID ALLERGIES: aloe Adverse Reaction (Verified 11/09/18 15:41) Latex, Natural Rubber Adverse Reaction (Verified 11/09/18 15:41) orange juice Adverse Reaction (Verified 11/09/18 15:41) venom-honey bee [bee venom (honey bee)] Adverse Reaction (Verified 11/09/18 15: 41) orange Adverse Reaction (Uncoded 11/09/18 15:41) DISCONTINUED MEDICATIONS: METFORMIN AMARYL JARDIANCE AMLODIPINE MEDICATION CHANGES: DECREASE ZESTORETIC 20-12.5 TO DAILY DECREASE COREG TO 12.5 MG BID NEW PRESCRIPTIONS: CIPRO 500 MG BID FOR 5 DAYS PREDNISONE 20 MG BID FOR 5 DAYS, THEN DAILY FOR 3 DAYS TAKE WITH FOOD K-DUR 20 MEQ DAILY FOR 5 DAYS SMOKING: PATIENT IS A SMOKER, BUT REPORTS SHE IS GOING TO TRY TO STOP SMOKING SMOKING CESSATION DISCUSSED DISEASE SPECIFIC EDUCATION: SMOKING CESSATION MEDICATION CHANGES PRESCRIPTIONS ACTIVITY USE OF STEROIDS AND RISK OF GI IRRITATION, BONE DEMINERALIZATION DIET: CONSISTENT CARBOHYDRATES ACTIVITY: GRADUALLY RESUME TOLERATED AVOID OUTSIDE EXERTION IN EXTREMELY HOT, HUMID WEATHER HOSPITAL COURSE: This is a 73 year old white female who presented to the emergency room with shortness of breath and acute respiratory failure. She was confused due to hypoxia. She was admitted and placed on Levophed and Dopamine due to severe hypotension. Potassium was low and she was given IV fluids. PO2 was decreased initially and pCo2 was elevated. She was initially placed on BIPAP and then weaned to Venturi mask and then later nasal cannula. She was special care unit for the first 48 hours and made a remarkably recovery with also the addition of IV steroids Solu-Cortef. Blood sugars have been well controlled. She was discontinued off the Levophed within 12 hours. She did receive two units of packed red cells due to anemia likely due to hemodilution due to administration of IV fluids for hypotension. For now we have discontinued her Metformin, Amaryl and we will continue on her Januvia. We have also decreased the Zestoretic to daily, Her Coreg to 12.5mg twice a day. Information has been given regarding smoking cessation. Three step oxygen test done today which she did not qualify for home oxygen. She declines to see a respiratory specialist at this time. Again we have encouraged her to quit smoking. Today vital signs; Temperature 97.7, heart rate 81, respiratory rate 20, blood pressure 138/64 and pulse ox 92%. Vital signs are stable today. We will discharge her in stable condition today on Cipro 500mg twice a day along with Prednisone 20mg twice a day for 5 days then daily for 3 days. We will see her at the end of this week in the office. TIME SPENT: More than 60 minutes. DELICIA
--- NOTE | 2018-11-16 09:45 | HP ---
DATE OF SERVICE: 11/09/18 REASON FOR HOSPITALIZATION/HISTORY OF PRESENT ILLNESS: 73 year old white female who was brought to the emergency room by ambulance with altered mental status. She had been a little disoriented and more drowsy. Her had stated that he was having a hard time getting her to wake up. 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 Malaise. Weakness. Lethargy. No fever or chills. HEENT: Eyes: No visual changes. No eye pain. No eye discharge. ENT: No runny nose. No epistaxis. No sinus pain. No sore throat. No odynophagia. No ear pain. No congestion. RESPIRATORY: Cough, no congestion. No hemoptysis. Shortness of breath. CARDIOVASCULAR: No angina symptoms. No CHF symptoms. No atypical chest pain for CAD. No palpitations. No PND. No orthopnea. GASTROINTESTINAL: No abdominal pain. No nausea or vomiting. No diarrhea or constipation. No hematemesis. No hematochezia. GENITOURINARY: No urgency. No frequency. No dysuria. No hematuria. No obstructive symptoms. No discharge. No pain. No significant abnormal bleeding. MUSCULOSKELETAL: No musculoskeletal pain. No joint swelling. No arthritis. NEUROLOGICAL: No headache. No neck pain. No syncope. No seizures. No dizziness. PSYCHIATRIC: Not anxious. No depression. No suicidal thoughts. No homicidal thoughts. SKIN: No rash. No lesions. No wounds. ENDOCRINE: No unexplained weight loss. No weight gain. HEMATOLOGIC/LYMPHATIC: No anemia. No purpura. No petechiae. No prolonged or excessive bleeding. No palpable lymph nodes. PERSONAL/FAMILY/SOCIAL HISTORY: She is currently an everyday pack per day smoker. No alcohol or illicit drug use. She lives at home with her . MEDICATIONS: Aspirin 81mg PO daily Lovastatin 40mg PO 1700 Glucophage 1,000mg Po twice a day Amaryl 4mg PO twice a day Fenofibrate 54mg PO bedtime Zestoretic 20-12.5mg one tablet twice a day Norvasc 5mg PO daily Januvia 100mg PO bedtime Symbicort 160-4.5 two puffs INH twice a day Requip 1mg PO twice a day Gabapentin 300mg PO three times a day Fish oil 1,000mg one capsule PO twice a day Plavix 75mg PO daily Coreg 25mg PO twice a day DUO NEB one vial NEB four times a day Vitamin C 500mg PO QAM Protonix 40mg PO QDAC Jardiance 25mg PO daily Lorazepam 1mg PO bedtime ALLERGIES: Aloe Latex Natural Rubber Devens juice Venom-honey bee [place] PHYSICAL EXAMINATION: GENERAL: The patient is drowsy, alert and oriented to person not place and time. VITAL SIGNS: Temperature 98.5, heart rate 66, respiratory rate 28, blood pressure 73/46 and pulse ox 90%. HEENT: Head normocephalic, atraumatic. Eyes: Extraocular muscles are intact. Pupils are equal, round and reactive to light and accommodation. Ears: No lesions. Nose appeared normal. Throat: No exudate or erythema. NECK: Supple. No JVD, no carotid bruit. No lymphadenopathy or thyromegaly. LUNGS: Severely diminished breath sounds with minimal air movement. Clear to auscultation. Percussion note normal. Chest symmetrical. HEART: S1, S2, no S3. No murmurs. No cyanosis or clubbing. No ascites. Pulses: Dorsalis pedis and posterior tibial pulses +1 to +2 bilaterally. ABDOMEN: Soft. Nontender. Bowel sounds active. No CVA tenderness. No mass felt. EXTREMITIES: No edema. Full range of motion of all extremities, equal. NEUROLOGIC: No focal deficit. Cranial nerves II through XII are grossly intact. No headache, no double vision or headache. SKIN: Not dry. Intact. Turgor - normal. LYMPHATIC: No palpable lymph nodes/no lymphedema. MUSCULOSKELETAL: Normal joints with no swelling. Muscle tone is normal. LABS: ABG's initially pH 7.117, pCO2 86, Po2 69, base excess -2, bicarb 27.8, TCO2 30 , O2 sat 85. Chest x-ray shows senescent chest with COPD. Left basilar hazy density favoring breast shadowing. Sodium 139, Potassium 4.7, BUN 37, creatinine 2.8, glucose 156, GFR 17, AST 22, ALT 14, CK 353, CK-MB 8.4, Alkaline phosphatase 48, Initial ABG on room air pH 7.198, pCO2 75.9, Po2 43, base excess of 1, bicarb 29.5, TCO2 32 and O2 sat 65. WBC 9.4, hgb 8.7, hct 30.6 , plt count 280. ASSESSMENT: 1. Acute respiratory failure 2. Acute hypotension 3. Anemia 4. Altered mental status due to hypoxia PLAN: 1. Admit to special care unit 2. Start on BIPAP 3. CBC and CMP daily 4. Repeat ABG in 30 minutes 5. Xopenex NEBS three times a day 6. Lasix 40mg IV now 7. Start on Rocephin 1 gram IV daily 8. Normal saline at 125cc an hour 9. Start Dopamine and Levophed 10.Continuous vital signs on bronzer 11.Hold all hypertensive medications as well as antidiabetic medications 12. Will follow very closely. TIME SPENT: More than 70 minutes. MTDD
== END 2018-11-14 13:40 | disposition home or self-care (01) | DRG 189 ==
LOC: ED 15:37 → SCU 20:11 → MEDSURG B 11-13 19:35
PROVIDERS: ADMIT Internal Medicine; ATTEND Internal Medicine
DX: J96.00 Acute respiratory failure, unspecified whether with hypoxia or hypercapnia (principal); J44.9 Chronic obstructive pulmonary disease, unspecified; D64.9 Anemia, unspecified; I95.9 Hypotension, unspecified; I10 Essential (primary) hypertension; E87.6 Hypokalemia; E53.8 Deficiency of other specified B group vitamins; E11.9 Type 2 diabetes mellitus without complications; K21.9 Gastro-esophageal reflux disease without esophagitis; K76.0 Fatty (change of) liver, not elsewhere classified; R05 Cough; R06.00 Dyspnea, unspecified; R53.1 Weakness; R53.81 Other malaise; Z86.73 Personal history of transient ischemic attack (TIA), and cerebral infarction without residual deficits; Z72.0 Tobacco use
CPT/HCPCS: 36415; 36430; 80053; 82550; 82553; 82803; 82962; 83605; 84145; 84439; 84443; 84484; 85008; 85025; 86850; 86900; 86922; 87040; 87081; 93005; 93010; 94640; 94660; 94761; 96360; 96361; 96368; 99285

== ENCOUNTER 2018-11-21 10:35 | Inpatient (IN) ==
--- NOTE | 2018-11-21 11:08 | DI ---
EXAM: Single view of the chest. History: Short of breath comparison: Chest radiograph 11/09/2018 Findings: Limited evaluation due to patient's chin over the lung apices. Heart is mildly enlarged. No definite acute infiltrates. No appreciable pleural fluid and no pneumothorax. Left shoulder art hroplasty hardware. Impression: Mild cardiomegaly with no evidence for pulmonary edema.
--- NOTE | 2018-11-21 11:44 | ED.PDOC ---
General ED Provider: Dr. JAYLON RILEY Chief Complaint: Shortness of Air Stated Complaint: difficulty breathing Time Seen by Physician: 10:45 Mode of Arrival: Wheelchair Information Source: Patient, Family Exam Limitations: No limitations Primary Care Provider: BRINDA SMITH Nursing and Triage Documentation Reviewed and Agree: Yes Does patient meet sepsis criteria?: Yes If yes, has appropriate treatment been initiated?: Yes System Inflammatory Response Syndrome: Not Applicable Sepsis Protocol: For patient's 13 years and over: Temp is 96.8 and below OR 101 and greater Pulse >90 BPM Resp >20/minute Acutely Altered Mental Status Are patient's symptoms suggestive of a new infection, such as: -Pneumonia -Skin, Soft Tissue -Endocarditis -UTI -Bone, Joint Infection -Implantable Device -Acute Abdominal Infection -Wound Infection -Meningitis -Blood Stream Catheter Infection -Unknown Respiratory Complaint Exam - Asthma Complaint/Exam Onset/Duration: today and inthe past Symptoms Are: Still present Timing: Constant Initial Severity: Mild Current Severity: Moderate Character: Reports: Wheezing Aggravating: Reports: Exertion, Weather change Alleviating: Reports: Inhalers, Oxygen Associated Signs and Symptoms: Reports: Rapid breathing, Labored breathing Related History: Reports: Similar episode Related Surgical History: Reports: None Status Asthmaticus Risk Factors: Reports: None Current Asthma Medication Usage: Yes Recent Antibiotics: No Respiratory Distress: Moderate Accessory Muscle Use: Yes Retractions: Not Present Diminished Breath Sounds: Yes Prolonged Expiratory Phase: Yes Unable to Speak Full Sentences: Yes Fatigue Present: Yes Differential Diagnoses: Acute Asthma, Bronchitis, CHF, COPD Exacerbation, Pneumonia, Pulmonary Embolism Quality Indicators For Pneumonia/CAP: Blood Cultures-SCU admit, Empiric Antibiotic Rx, Vital signs, Mental status assessed Patient Advised to Stop Smoking: Yes Review of Systems - Review Of Systems Constitutional: Reports: Weakness, Sweats Eyes: Reports: No symptoms Ears, Nose, Mouth, Throat: Reports: No symptoms Respiratory: Reports: Orthopnea, Short of air, Wheezing Cardiac: Reports: No symptoms, Other GI: Reports: Abdomen distended, Poor fluid intake : Reports: Dysuria, Urgency Musculoskeletal: Reports: No symptoms, Muscle stiffness Skin: Reports: No symptoms Neurological: Reports: Cognitive dysfunction, Weakness Hematologic/Lymphatic: Reports: No symptoms All Other Systems: Reviewed and Negative Past Medical History - Past Medical History Previously Healthy: No Endocrine: Reports: DM 2, Dyslipidemia Cardiovascular: Reports: Hypertension Respiratory: Reports: COPD Hematological: Reports: None Gastrointestinal: Reports: None Genitourinary: Reports: Unknown Neuro/Psych: Reports: TIA Musculoskeletal: Reports: None Cancer: Reports: None Last Menstrual Period: none - Surgical History General Surgical History: Reports: None - Family History Family History: Reports: None - Social History Smoking Status: Current every day smoker Hx Substance Use: No Alcohol Screening: None Physical Exam - Physical Exam Appearance: Ill-appearing Ill-appearing: Moderate Pain Distress: None Eyes: VIDA, EOMI, Conjunctiva clear ENT: Ears normal, Nose normal, Oropharynx normal Neck: Supple Respiratory: Airway patent, Breath sounds equal, Breath sounds diminished, Wheezes Cardiovascular: RRR, Pulses normal GI/: Soft, Nontender, No masses, Bowel sounds hypoactive, Hepatomegaly, Splenomegaly Musculoskeletal: Normal strength, ROM intact, No edema Skin: Warm, Dry Neurological: Sensation intact, Alert, Oriented Psychiatric: Anxious Critical Care Note - Critical Care Note Total Time (mins): 0 Course - Course Hematology/Chemistry: 11/21/18 11:05 11/21/18 11:05 Orders, Labs, Meds: Lab Review 11/21/18 11/21/18 11/21/18 10:35 11:05 11:05 WBC 12.89 H RBC 5.63 H Hgb 14.2 Hct 49.7 H MCV 88.3 MCH 25.2 L MCHC 28.6 L RDW Coeff of Jerome 19.1 H Plt Count 268 Immature Gran % (Auto) 1.3 Neut % (Auto) 78.3 Lymph % (Auto) 15.4 [place] % (Auto) 4.4 Eos % (Auto) 0.4 Baso % (Auto) 0.2 Immature Gran # (Auto) 0.2 Neut # (Auto) 10.1 H Lymph # (Auto) 2.0 [place] # (Auto) 0.6 Eos # (Auto) 0.1 Baso # (Auto) 0.0 Hypochromasia 1+ Anisocytosis Not present Puncture Site R rad O2 Saturation 36.0 L ABG pH 7.223 L* ABG pCO2 79.5 H ABG pO2 27.0 L* ABG HCO3 32.8 H ABG Total CO2 35 H ABG Base Excess 5 H Nathanael Test + O2 Delivery Device FiO2 % 21.0 Sodium 143.0 Potassium 4.28 Chloride 102.7 Carbon Dioxide 32.5 H Anion Gap 12.08 BUN 34.7 H Creatinine 1.01 Estimated GFR (MDRD) 54.00 BUN/Creatinine Ratio 34.35 Glucose 410.2 H Lactic Acid Calcium 10.80 H Total Bilirubin 0.65 AST 17.3 ALT 24.1 Alkaline Phosphatase 72.2 Troponin I Total Protein 6.18 L Albumin 4.04 Globulin 2.14 Albumin/Globulin Ratio 1.88 Procalcitonin Acetone, Qual 11/21/18 11/21/18 11/21/18 11:05 11:05 11:05 WBC RBC Hgb Hct MCV MCH MCHC RDW Coeff of Jerome Plt Count Immature Gran % (Auto) Neut % (Auto) Lymph % (Auto) [place] % (Auto) Eos % (Auto) Baso % (Auto) Immature Gran # (Auto) Neut # (Auto) Lymph # (Auto) [place] # (Auto) Eos # (Auto) Baso # (Auto) Hypochromasia Anisocytosis Puncture Site O2 Saturation ABG pH ABG pCO2 ABG pO2 ABG HCO3 ABG Total CO2 ABG Base Excess Nathanael Test O2 Delivery Device FiO2 % Sodium Potassium Chloride Carbon Dioxide Anion Gap BUN Creatinine Estimated GFR (MDRD) BUN/Creatinine Ratio Glucose Lactic Acid 0.99 Calcium Total Bilirubin AST ALT Alkaline Phosphatase Troponin I Total Protein Albumin Globulin Albumin/Globulin Ratio Procalcitonin 0.07 Acetone, Qual None 11/21/18 11/21/18 11:05 11:20 WBC RBC Hgb Hct MCV MCH MCHC RDW Coeff of Jerome Plt Count Immature Gran % (Auto) Neut % (Auto) Lymph % (Auto) [place] % (Auto) Eos % (Auto) Baso % (Auto) Immature Gran # (Auto) Neut # (Auto) Lymph # (Auto) [place] # (Auto) Eos # (Auto) Baso # (Auto) Hypochromasia Anisocytosis Puncture Site R rad O2 Saturation 97.0 ABG pH 7.248 L* ABG pCO2 71.7 H ABG pO2 113.0 H ABG HCO3 31.2 H ABG Total CO2 33 H ABG Base Excess 4 H Nathanael Test + O2 Delivery Device Bipap FiO2 % 36.0 Sodium Potassium Chloride Carbon Dioxide Anion Gap BUN Creatinine Estimated GFR (MDRD) BUN/Creatinine Ratio Glucose Lactic Acid Calcium Total Bilirubin AST ALT Alkaline Phosphatase Troponin I 0.034 Total Protein Albumin Globulin Albumin/Globulin Ratio Procalcitonin Acetone, Qual Orders Category Date Time Status ABG DRAW REQUEST DAILY@0600 CARDIO 11/22/18 06:00 Ordered ABG DRAW REQUEST DAILY@0600 CARDIO 11/23/18 06:00 Ordered ABG DRAW REQUEST DAILY@0600 CARDIO 11/24/18 06:00 Ordered ABG DRAW REQUEST DAILY@0600 CARDIO 11/25/18 06:00 Ordered ABG DRAW REQUEST Stat CARDIO 11/21/18 10:47 Completed ABG DRAW REQUEST Timed CARDIO 11/21/18 11:30 Completed BIPAP Routine CARDIO 11/21/18 10:56 Active EKG-(ED ONLY) Stat CARDIO 11/21/18 10:48 Completed BLOOD GLUCOSE MONITORING DIRECTED CARE 11/21/18 12:11 Active ED ACCUCHECK ASSESSMENT .ONCE EMERGENCY 11/21/18 13:32 Active ED APPLY O2 .ONCE EMERGENCY 11/21/18 10:41 Active ED NUCLEAR WEAPONS MECHANICAL SPECIALIST APPLIED .ONCE EMERGENCY 11/21/18 10:41 Active ED VITAL SIGNS Q1HR EMERGENCY 11/21/18 10:41 Active ABG DAILY@0600 LAB 11/22/18 06:00 Ordered ABG DAILY@0600 LAB 11/23/18 06:00 Ordered ABG DAILY@0600 LAB 11/24/18 06:00 Ordered ABG DAILY@0600 LAB 11/25/18 06:00 Ordered ABG Stat LAB 11/21/18 10:35 Completed ABG Stat LAB 11/21/18 11:20 Completed ACETONE, QUALITATIVE Stat LAB 11/21/18 11:05 Completed BLOOD CULTURE (ED ONLY) Stat LAB 11/21/18 11:05 Received CBC W/ AUTO DIFF Stat LAB 11/21/18 11:05 Completed COMPREHENSIVE METABOLIC PANEL Stat LAB 11/21/18 11:05 Completed LACTIC ACID Stat LAB 11/21/18 11:05 Completed PROCALCITONIN Stat LAB 11/21/18 11:05 Completed RBC MORPHOLOGY Stat LAB 11/21/18 11:05 Completed TROPONIN I Stat LAB 11/21/18 11:05 Completed 0.9 % Sodium Chloride [Sodium Chloride] 100 ml MEDS 11/21/18 12:15 Active Insulin Regular, Human [Humulin R] 100 unit IV 5 unit/hr Ceftriaxone Sodium [Rocephin] MEDS 11/21/18 12:22 Discontinued 1 gm .ROUTE .STK-MED ONE Ceftriaxone Sodium [Rocephin] 1 gm MEDS 11/21/18 12:16 Discontinued 0.9 % Sodium Chloride [Sodium Chloride] 50 ml IV ONCE Sodium Chloride 0.9% [Sodium Chloride] 1,000 ml MEDS 11/21/18 11:46 Discontinued IV BOLUS CHEST, 1V AP ONLY Stat RADS 11/21/18 10:41 Completed Medications Generic Name Dose Route Start Last Admin Trade Name Freq PRN Reason Stop Dose Admin Insulin Human Regular 100 unit 100 mls @ 5 mls/hr 11/21/18 12:15 11/21/18 13: 02 / Sodium Chloride IV 5 unit/hr .Q20H TRACEE 5 mls/hr Administration Protocol 5 UNIT/HR Discontinued Medications Generic Name Dose Route Start Last Admin Trade Name Freq PRN Reason Stop Dose Admin Sodium Chloride 1,000 mls @ 1,000 mls/hr 11/21/18 11:46 11/21/18 11:47 Sodium Chloride IV 11/21/18 12:45 1,000 mls/hr BOLUS STA Administration Ceftriaxone Sodium 1 gm/ 50 mls @ 75 mls/hr 11/21/18 12:16 11/21/18 12:27 Sodium Chloride IV 11/21/18 12:55 75 mls/hr ONCE STA Administration Vital Signs: Temp Pulse Resp BP Pulse Ox 11/21/18 10:55 98 11/21/18 10:45 91 H 99 11/21/18 10:36 97.5 F L 95 H 24 143/72 H 52 L Departure - Departure Time of Disposition: 14:29 Disposition: ADMITTED INPATIENT Discharge Problem: DKA (diabetic ketoacidoses) Condition: Fair Pt referred to PMD for follow-up: Yes IPMP verified?: No Allergies/Adverse Reactions: Allergies aloe Adverse Reaction (Verified 11/21/18 10:46) Latex, Natural Rubber Adverse Reaction (Verified 11/21/18 10:46) orange juice Adverse Reaction (Verified 11/21/18 10:46) venom-honey bee [bee venom (honey bee)] Adverse Reaction (Verified 11/21/18 10: 46) orange Adverse Reaction (Uncoded 11/09/18 15:41) Home Medications: Ambulatory Orders Aspirin [Aspirin Chewable] 81 mg PO DAILY 08/06/14 Fenofibrate 54 mg PO BEDTIME 08/06/14 Lovastatin 40 mg PO 1700 08/06/14 Budesonide/Formoterol Fumarate [Symbicort 160-4.5 Mcg Inhaler] 2 puff INH BID Sitagliptin Phosphate [Januvia] 100 mg PO BEDTIME 08/26/15 Gabapentin 300 mg PO TID 08/05/17 Ropinirole HCl [Requip] 1 mg PO BID 08/05/17 Clopidogrel Bisulfate [Plavix] 1 tab PO DAILY 08/29/17 [place]-3 Fatty Acids/Fish Oil [Fish Oil 1,000 mg Capsule] 1 cap PO BID 08/29/17 Ascorbate Calcium [Vitamin C] 500 mg PO QAM 07/26/18 Ipratropium/Albuterol Neb [Duoneb] 1 vial NEB QID 07/26/18 Pantoprazole Sodium [Protonix] 40 mg PO QDAC 07/26/18 Lorazepam 1 mg PO BEDTIME 11/09/18 Carvedilol [Coreg] 12.5 mg PO BID #1 tablet 11/14/18 Ciprofloxacin HCl [Cipro] 500 mg PO Q12HR #10 tablet 11/14/18 Lisinopril/Hydrochlorothiazide [Zestoretic 20-12.5 mg Tablet] 1 each PO DAILY # 1 tablet 11/14/18 Potassium Chloride [K-Dur] 20 meq PO DAILY #5 tab 11/14/18 Prednisone 20 mg PO BID #13 tablet 11/14/18 Disposition Discussed With: Patient, Family
[2018-11-21] MEDS ORDERED: SODIUM CHLORIDE 1,000 ML IV STA (11:46)
[2018-11-21] MEDS ORDERED: HUMULIN R 100 UNIT in SODIUM CHLORIDE 100 ML IV SCH (12:15)
[2018-11-21] MEDS ORDERED: ROCEPHIN 1 GM in SODIUM CHLORIDE 50 ML IV STA (12:16)
[2018-11-21] MEDS ORDERED: ROCEPHIN ONE (12:22)
[2018-11-21] MEDS: SODIUM CHLORIDE 1,000 ML IV SCH (17:20)
[2018-11-21 17:22] VITALS: BMI 31.1
[2018-11-21] MEDS ORDERED: DOPAMINE IV ONE (18:03)
[2018-11-21] MEDS: DOPAMINE 400 MG in PREMIX 250 ML D5W 1 BAG IV SCH (18:10)
[2018-11-21] MEDS: PROTONIX IV IVP SCH (18:11)
[2018-11-21] MEDS ORDERED: SODIUM CHLORIDE 500 ML IV SCH (18:30)
[2018-11-21] MEDS: SOLU-MEDROL 125 MG IVP SCH (20:47)
[2018-11-21] MEDS: HUMULIN R SUBCUT PRN (20:50)
[2018-11-21] MEDS: ALBUTEROL 0.083% NEB NEB SCH (22:00)
[2018-11-22] MEDS: SODIUM CHLORIDE 1,000 ML IV SCH ×2 (02:28→15:23)
[2018-11-22] MEDS: SOLU-MEDROL 125 MG IVP SCH ×3 (04:20→20:55)
[2018-11-22] MEDS: ALBUTEROL 0.083% NEB NEB SCH ×3 (05:05→22:40)
[2018-11-22] MEDS: HUMULIN R SUBCUT PRN ×4 (05:52→20:54)
[2018-11-22] MEDS: LOVENOX SUBCUT SCH (08:30)
[2018-11-22] MEDS: PROTONIX IV IVP SCH (08:30)
[2018-11-22] MEDS: ROCEPHIN 1 GM in SODIUM CHLORIDE 50 ML IV SCH (08:30)
--- NOTE | 2018-11-22 09:13 | PCM.PROG ---
Attending Provider: ATTENDING PROVIDER: Dr. BRINDA SMITH DATE OF SERVICE: 11/22/18 SUBJECTIVE: This 73 year old WHITE/ F was hospitalized 11/21/18 with acute respiratory failure. The patient's condition has improved. Her systolic blood pressure is 100. Her arterial blood gasses on Bi-PAP was FiO2 32, pH 7.291 and pO2 87 with oxygen saturation 94%. The patient is alert on command. Cardiovascular status is stable with no evidence of CHF. REVIEW OF SYSTEMS: CONSTITUTIONAL: No night sweats. No fatigue, malaise, lethargy. No fever or chills. HEENT: Eyes: No visual changes. No eye pain. No eye discharge. ENT: No runny nose. No epistaxis. No sinus pain. No odynophagia. No congestion. RESPIRATORY: No cough, no congestion. No hemoptysis. No shortness of breath. CARDIOVASCULAR: No angina symptoms. No CHF symptoms. No atypical chest pain for CAD. No palpitations. No orthopnea.. GASTROINTESTINAL: No abdominal pain. No nausea or vomiting. No diarrhea or constipation. No hematemesis. No hematochezia. GENITOURINARY: No urgency. No frequency. No dysuria. No hematuria. No obstructive symptoms. No discharge. No pain. No significant abnormal bleeding. MUSCULOSKELETAL: No musculoskeletal pain; no joint swelling. NEUROLOGICAL: Awake, alert, oriented to time, place and person. No headache. No neck pain. No syncope. No seizures. No dizziness. PSYCHIATRIC: Not anxious. No depression. No suicidal thoughts. No homicidal thoughts. SKIN: No rash. No lesions. No wounds. ENDOCRINE: No unexplained weight loss. No weight gain. HEMATOLOGIC/LYMPHATIC: No anemia. No purpura. No petechiae. No prolonged or excessive bleeding. No palpable lymph nodes. PHYSICAL EXAMINATION: GENERAL: The patient is awake, alert and oriented, lying in bed in no distress. VITAL SIGNS: Temperature 98.6 F, Pulse 75, Respiratory Rate 20, BP 116/65, Pulse Ox 97% HEENT: Head normocephalic, atraumatic. Eyes: Extraocular muscles are intact. Pupils are equal, round and reactive to light and accommodation. Ears: No lesions. Nose appeared normal. Throat: No exudate or erythema. NECK: Supple. No JVD, no carotid bruit. No lymphadenopathy or thyromegaly. LUNGS: Decreased breath sounds. Clear to auscultation. Percussion note normal. Chest symmetrical. HEART: S1, S2, no S3. No murmurs. No cyanosis or clubbing. No ascites. Pulses: Dorsalis pedis and posterior tibial pulses +1 to +2 both sides. ABDOMEN: Soft. Non-tender. Bowel sounds active. No CVA tenderness. No mass felt. EXTREMITIES: Trace edema. Full range of motion of all extremities, equal. NEUROLOGIC: No focal deficit. Cranial nerves II through XII are grossly intact. No headache, no double vision or headache. SKIN: Warm and dry. Intact. Turgor-normal. LYMPHATIC: No palpable lymph nodes/no lymphedema. MUSCULOSKELETAL: Normal joints with no swelling. Muscle tone is normal. LAB REVIEW: 11/22/18 05:15 11/22/18 05:15 11/22/18 05:15: Sodium 143.5, Potassium 4.31, Chloride 108.5 H, Carbon Dioxide 29.5, Anion Gap 9.81, BUN 38.5 H, Creatinine 1.25, Estimated GFR (MDRD) 42.00, BUN/Creatinine Ratio 30.80, Glucose 255.4 H D, Calcium 9.08, Total Bilirubin 0.46, AST 15.6, ALT 17.2, Alkaline Phosphatase 50.4 L, Total Protein 5.03 L, Albumin 3.08 L, Globulin 1.95, Albumin/Globulin Ratio 1.57 11/22/18 05:15: WBC 13.91 H, RBC 4.61, Hgb 11.6 L, Hct 40.9 D, MCV 88.7, MCH 25.2 L, MCHC 28.4 L, RDW Coeff of Jerome 18.8 H, Plt Count 214, Immature Gran % ( Auto) 0.8, Neut % (Auto) 93.3, Lymph % (Auto) 5.4 L, [place] % (Auto) 0.4, Eos % ( Auto) 0.0, Baso % (Auto) 0.1, Immature Gran # (Auto) 0.1, Neut # (Auto) 13.0 H, Lymph # (Auto) 0.8, [place] # (Auto) 0.1 L, Eos # (Auto) 0.0, Baso # (Auto) 0.0, Anisocytosis 1+, Spherocytes 1+ 11/22/18 04:50: Puncture Site Rbrach, O2 Saturation 95.0, ABG pH 7.291 L*, ABG pCO2 57.8 H, ABG pO2 87.0, ABG HCO3 27.9 H, ABG Total CO2 30 H, ABG Base Excess 1, Nathanael Test +, O2 Delivery Device Bipap, FiO2 % 32.0 11/21/18 20:45: Puncture Site Rbrach, O2 Saturation 90.0 L, ABG pH 7.243 L*, ABG pCO2 61.0 H, ABG pO2 70.0 L, ABG HCO3 26.3 H, ABG Total CO2 28, ABG Base Excess -1, Nathanael Test +, O2 Delivery Device Bipap, FiO2 % 32.0 11/21/18 17:37: Puncture Site Rbrach, O2 Saturation 86.0 L, ABG pH 7.217 L*, ABG pCO2 79.7 H, ABG pO2 64.0 L, ABG HCO3 32.4 H, ABG Total CO2 35 H, ABG Base Excess 5 H, Nathanael Test +, O2 Delivery Device Bipap, FiO2 % 32.0 11/21/18 17:27: Puncture Site Rrad, O2 Saturation 90.0 L, ABG pH 7.202 L*, ABG pCO2 84.5 H, ABG pO2 76.0 L, ABG HCO3 33.2 H, ABG Total CO2 36 H, ABG Base Excess 5 H, Nathanael Test +, O2 Delivery Device Bipap, FiO2 % 32.0 11/21/18 11:20: Urine Color Yellow, Urine Clarity Clear, Urine pH 5.0, Ur Specific [place] 1.025, Urine Protein 3+, Urine Glucose (UA) 2+, Urine Ketones Negative, Urine Blood 1+, Urine Nitrite Negative, Urine Bilirubin Negative, Urine Urobilinogen 0.2, Ur Leukocyte Esterase Negative, Urine Microscopic RBC 5- 10, Ur Squamous Epith Cells 0-2 11/21/18 11:20: Puncture Site R rad, O2 Saturation 97.0, ABG pH 7.248 L*, ABG pCO2 71.7 H, ABG pO2 113.0 H, ABG HCO3 31.2 H, ABG Total CO2 33 H, ABG Base Excess 4 H, Nathanael Test +, O2 Delivery Device Bipap, FiO2 % 36.0 11/21/18 11:05: Troponin I 0.034 11/21/18 11:05: Acetone, Qual None 11/21/18 11:05: Lactic Acid 0.99 11/21/18 11:05: Procalcitonin 0.07 11/21/18 11:05: Sodium 143.0, Potassium 4.28, Chloride 102.7, Carbon Dioxide 32.5 H, Anion Gap 12.08, BUN 34.7 H, Creatinine 1.01, Estimated GFR (MDRD) 54.00 , BUN/Creatinine Ratio 34.35, Glucose 410.2 H, Calcium 10.80 H, Total Bilirubin 0.65, AST 17.3, ALT 24.1, Alkaline Phosphatase 72.2, Total Protein 6.18 L, Albumin 4.04, Globulin 2.14, Albumin/Globulin Ratio 1.88 11/21/18 11:05: WBC 12.89 H, RBC 5.63 H, Hgb 14.2, Hct 49.7 H, MCV 88.3, MCH 25.2 L, MCHC 28.6 L, RDW Coeff of Jerome 19.1 H, Plt Count 268, Immature Gran % ( Auto) 1.3, Neut % (Auto) 78.3, Lymph % (Auto) 15.4, [place] % (Auto) 4.4, Eos % ( Auto) 0.4, Baso % (Auto) 0.2, Immature Gran # (Auto) 0.2, Neut # (Auto) 10.1 H, Lymph # (Auto) 2.0, [place] # (Auto) 0.6, Eos # (Auto) 0.1, Baso # (Auto) 0.0, Hypochromasia 1+, Anisocytosis Not present 11/21/18 10:35: Puncture Site R rad, O2 Saturation 36.0 L, ABG pH 7.223 L*, ABG pCO2 79.5 H, ABG pO2 27.0 L*, ABG HCO3 32.8 H, ABG Total CO2 35 H, ABG Base Excess 5 H, Nathanael Test +, FiO2 % 21.0 ASSESSMENT: Please see below. 1. Acute respiratory failure because of acute bronchitis 3. Chronic lung disease 3. History of smoker with chronic lung disease 4. Diabetes Mellitus 5. Noncompliance of medications and lifestyle. PLAN: 1. The patient is a DNR 2. Will continue steroids, antibiotics and NEBS 3. Try to get off Bi-PAP 4. Monitor arterial blood gasses Plan and coordination of the patient's care discussed in the presence of Vending Technician and nurse. CONDITION: Stable and improving. PROGNOSIS: Poor SCRIBED BY: Gage CHONG scribed while in presence of service performed by Dr. BRINDA SMITH on 11/22/18 ([id number])
--- NOTE | 2018-11-22 09:25 | HP ---
DATE OF SERVICE: 11/21/18 HISTORY OF PRESENT ILLNESS: This 73-year-old white female who presents to the emergency room complaining of shortness of breath, difficulty breathing. She was admitted about 10 days ago for acute respiratory failure. She has continued to smoke. PAST MEDICAL HISTORY: Diabetes mellitus Type 2 Dyslipidemia Hypertension COPD, oxygen dependent History of TIAs Smoker History of acute respiratory failure Anemia Hypertension TIA in 2016 B12 deficiency Diabetes mellitus Type 2 GERD Fatty liver PAST SURGICAL HISTORY: Left shoulder replacement Left knee replacement Cholecystectomy Hysterectomy Colonoscopy [address] Batista REVIEW OF SYSTEMS: CONSTITUTIONAL: No night sweats. No fatigue, malaise, lethargy. No fever or chills. HEENT: Eyes: No visual changes. No eye pain. No eye discharge. ENT: No runny nose. No epistaxis. No sinus pain. No sore throat. No odynophagia. No ear pain. No congestion. RESPIRATORY: Positive for cough. Positive for shortness of breath. No hemoptysis. CARDIOVASCULAR: No angina symptoms. No CHF symptoms. No atypical chest pain for CAD. No palpitations. No PND. No orthopnea. GASTROINTESTINAL: No abdominal pain. No nausea or vomiting. No diarrhea or constipation. No hematemesis. No hematochezia. GENITOURINARY: No urgency. No frequency. No dysuria. No hematuria. No obstructive symptoms. No discharge. No pain. No significant abnormal bleeding. MUSCULOSKELETAL: No musculoskeletal pain. No joint swelling. No arthritis. NEUROLOGICAL: No headache. No neck pain. No syncope. No seizures. No dizziness. PSYCHIATRIC: Not anxious. No depression. No suicidal thoughts. No homicidal thoughts. SKIN: No rash. No lesions. No wounds. ENDOCRINE: No unexplained weight loss. No weight gain. HEMATOLOGIC/LYMPHATIC: No anemia. No purpura. No petechiae. No prolonged or excessive bleeding. No palpable lymph nodes. PERSONAL/FAMILY/SOCIAL HISTORY: She is , lives at home with her . No alcohol or ilicit drug use. She is currently a half pack per day smoker, has been for the past 40 years. Again is oxygen dependent. She is a DNR. MEDICATIONS: (HOME) Aspirin 81mg p.o. daily Lovastatin 40 mg p.o. Fenofibrate 54 mg p.o. bedtime Sitagliptin 100 mg p.o. bedtime Budesonide/Formoterol two puff INH b.i.d. Ropinirole 1 mg p.o. b.i.d. Gabapentin 300 mg p.o. b.i.d. [place] 3 Fatty Acids/Fish Oil one cap p.o. b.i.d. Clopidogrel 75 mg one tab p.o. daily Ipratropium/Albuterol one vial NEB q.i.d. Pantoprazole 40 mg p.o. q.d a.c. Lorazepam 1 mg p.o. bedtime Empagliflozin 15 mg p.o. daily Amlodipine 5 mg p.o. daily Metformin 1,000 mg p.o. b.i.d. Glimepiride 4 mg p.o. b.i.d. Calcium Carbonate/Vitamin D3 one each p.o. daily Lisinopril/Hydrochlorothiazide one each p.o. b.i.d. Carvedilol 25 mg p.o. b.i.d. ALLERGIES: ALOE, LATEX, NATURAL RUBBER, ORANGE JUICE, VENOM-HONEY BEE, (ORANGE) PHYSICAL EXAMINATION: VITAL SIGNS: Temperature 97.5, heart rate 95, respirations 24, blood pressure 143/72, oxygen 52% on room air. 99% on bipap. HEENT: Head normocephalic, atraumatic. Eyes: Extraocular muscles are intact. Pupils are equal, round and reactive to light and accommodation. Ears: No lesions. Nose appeared normal. Throat: No exudate or erythema. NECK: Supple. No JVD, no carotid bruit. No lymphadenopathy or thyromegaly. LUNGS: Severely diminished breath sounds bilaterally. Inspiratory and expiratory wheezing. Percussion note normal. Chest symmetrical. HEART: S1, S2, no S3. No murmurs. No cyanosis or clubbing. No ascites. Pulses: Dorsalis pedis and posterior tibial pulses +1 to +2 bilaterally. ABDOMEN: Soft. Nontender. Bowel sounds active. No CVA tenderness. No mass felt. EXTREMITIES: Trace bilateral leg edema. Full range of motion of all extremities, equal. NEUROLOGIC: She is alert, oriented to person. No focal deficit. Cranial nerves II through XII are grossly intact. No headache, no double vision or headache. SKIN: Not dry. Intact. Turgor - normal. LYMPHATIC: No palpable lymph nodes/no lymphedema. MUSCULOSKELETAL: Normal joints with no swelling. Muscle tone is normal. Initial ABG on room air: pH 7.223, pc02 79, p02 27, base excess of 5, bicarb 32.8, TC02 35, 02 sat 36. Repeat ABG 30 minutes later on bipap at 36% shows pH 7.248, pc02 of 71.7, p02 113, base excess of 4, bicarb 31.2, TC02 33, 02 sat 97. Sodium 143, potassium 4.2, BUN 34, creatinine 1.01, glucose 410. GFR 54, calcium 10.8, total bili 0.65, AST 17, ALT 24, total protein 6.18, albumin 4.04. Alkaline phosphatase 72, lactic acid 0.99, white count 12.89, hemoglobin 14.2, hematocrit 49.7, platelets 268. CT of the chest shows no vascular congestion, changes associated with COPD, no acute process. ASSESSMENT: 1. ACUTE RESPIRATORY FAILURE 2. HYPOXIA 3. SEVERE COPD WITH EXACERBATION 4. SMOKER 5. HYPERTENSION 6. DIABETES MELLITUS TYPE 2 PLAN: 1. We will admit. 2. Continue bipap. 3. Repeat ABGs in one hour on bipap. 4. CBC, CMP daily. 5. Sliding scale for insulin. 6. Diabetic diet. 7. NS 75 cc's an hour IV. 8. Solu-Cortef 125 mg IV q.6hr. 9. Rocephin 1 gm IV daily. 10. Xopenex neb treatments q.6hr. 11. Albuterol neb treatments q.2 to 3hr p.r.n. 12. Pulmicort 0.5 b.i.d. neb treatment. 13. UA. TIME SPENT: More than 70 minutes. MTDD
[2018-11-22] MEDS: DOPAMINE 400 MG in PREMIX 250 ML D5W 1 BAG IV SCH (13:59)
--- NOTE | 2018-11-22 14:32 | PN ---
DATE OF SERVICE: 11/21/18 SUBJECTIVE: The patient was seen and examined in the hospital. The patient was brought to the emergency room with acute respiratory failure with acute respiratory acidosis with hypoxemia and hypercarbia. The patient was put on BIPAP with improvement in pO2 114, pCO2 71 the same as before with pH 7.28. The patient's condition seemed to have improved. She is oriented to time, place and person. The patient is going to be on IV steroids, NEBS, antibiotics. The patient is noncompliant and heavy smoker and doesn't take her medications on regular basis. She wants DNR. She doesn't want to be transferred to any other center where she could be taken care of by pulmonary MD. CONDITION: Improve PROGNOSIS: Poor The patient was seen and examined with Nurse Practitioner. TIME SPENT: More than 30 minutes. Plan and coordination of the patient's care discussed in the presence of nurse. DELICIA
[2018-11-22] MEDS ORDERED: TYLENOL PO STA (14:52)
[2018-11-23] MEDS: SODIUM CHLORIDE 1,000 ML IV SCH ×3 (03:27→23:22)
[2018-11-23] MEDS: ALBUTEROL 0.083% NEB NEB SCH (04:43)
[2018-11-23] MEDS: SOLU-MEDROL 125 MG IVP SCH ×3 (05:16→21:40)
[2018-11-23] MEDS: HUMULIN R SUBCUT PRN ×4 (06:15→21:41)
[2018-11-23] MEDS: DOPAMINE 400 MG in PREMIX 250 ML D5W 1 BAG IV SCH (07:47)
[2018-11-23] MEDS: PROTONIX IV IVP SCH (09:51)
[2018-11-23] MEDS: ROCEPHIN 1 GM in SODIUM CHLORIDE 50 ML IV SCH (09:52)
[2018-11-23] MEDS: JARDIANCE PO SCH (09:52)
[2018-11-23] MEDS: FLORASTOR PO SCH ×2 (09:52→21:42)
[2018-11-23] MEDS: LOVENOX SUBCUT SCH (09:54)
--- NOTE | 2018-11-23 10:33 | PCM.PROG ---
Attending Provider: ATTENDING PROVIDER: Dr. BRINDA SMITH This patient is seen with Yulia Luis, Nurse Practitioner. DATE OF SERVICE: 11/23/18 SUBJECTIVE: This 73 year old WHITE/ F was hospitalized 11/21/18. The patient is lying in bed resting comfortably. She refuses bipap. ABGs are slightly worse after refusing bipap. She is in no apparent distress. She is eating well. REVIEW OF SYSTEMS: CONSTITUTIONAL: Positive for fatigue. No night sweats. No malaise, lethargy. No fever or chills. HEENT: Eyes: No visual changes. No eye pain. No eye discharge. ENT: No runny nose. No epistaxis. No sinus pain. No odynophagia. No congestion. RESPIRATORY: Positive for cough. No hemoptysis. Positive for shortness of breath. CARDIOVASCULAR: No angina symptoms. No CHF symptoms. No atypical chest pain for CAD. No palpitations. No orthopnea.. GASTROINTESTINAL: No abdominal pain. No nausea or vomiting. No diarrhea or constipation. No hematemesis. No hematochezia. GENITOURINARY: No urgency. No frequency. No dysuria. No hematuria. No obstructive symptoms. No discharge. No pain. No significant abnormal bleeding. MUSCULOSKELETAL: No musculoskeletal pain; no joint swelling. NEUROLOGICAL: Awake, alert, oriented to time, place and person. No headache. No neck pain. No syncope. No seizures. No dizziness. PSYCHIATRIC: Not anxious. No depression. No suicidal thoughts. No homicidal thoughts. SKIN: No rash. No lesions. No wounds. ENDOCRINE: No unexplained weight loss. No weight gain. HEMATOLOGIC/LYMPHATIC: No anemia. No purpura. No petechiae. No prolonged or excessive bleeding. No palpable lymph nodes. PHYSICAL EXAMINATION: GENERAL: The patient is awake, alert and oriented, lying/sitting in bed in no distress. VITAL SIGNS: Temperature 98.8 F, Pulse 76, Respiratory Rate 18, BP 98/47, Pulse Ox 96% HEENT: Head normocephalic, atraumatic. Eyes: Extraocular muscles are intact. Pupils are equal, round and reactive to light and accommodation. Ears: No lesions. Nose appeared normal. Throat: No exudate or erythema. NECK: Supple. No JVD, no carotid bruit. No lymphadenopathy or thyromegaly. LUNGS: Severe diminished breath sounds bilaterally. Clear to auscultation. Percussion note normal. Chest symmetrical. HEART: S1, S2, no S3. No murmurs. No cyanosis or clubbing. No ascites. Pulses: Dorsalis pedis and posterior tibial pulses +1 to +2 both sides. ABDOMEN: Soft. Non-tender. Bowel sounds active. No CVA tenderness. No mass felt. EXTREMITIES: No leg edema. Full range of motion of all extremities, equal. NEUROLOGIC: No focal deficit. Cranial nerves II through XII are grossly intact. No headache, no double vision or headache. SKIN: Not dry. Intact. Turgor-normal. LYMPHATIC: No palpable lymph nodes/no lymphedema. MUSCULOSKELETAL: Normal joints with no swelling. Muscle tone is normal. LAB REVIEW: 11/23/18 05:00 11/23/18 05:00 11/23/18 05:00: Sodium 142.4, Potassium 3.56, Chloride 107.1 H, Carbon Dioxide 28.9, Anion Gap 9.96, BUN 42.2 H, Creatinine 1.31 H, Estimated GFR (MDRD) 40.00 , BUN/Creatinine Ratio 32.21, Glucose 235.6 H, Calcium 9.09, Total Bilirubin 0.41, AST 18.1, ALT 19.0, Alkaline Phosphatase 51.1 L, Total Protein 5.58 L, Albumin 3.53, Globulin 2.05, Albumin/Globulin Ratio 1.72 11/23/18 05:00: WBC 17.04 H, RBC 4.66, Hgb 11.8 L, Hct 40.7, MCV 87.3, MCH 25.3 L, MCHC 29.0 L, RDW Coeff of Jerome 19.4 H, Plt Count 242, Immature Gran % (Auto) 1.2, Neut % (Auto) 94.2, Lymph % (Auto) 2.6 L, [place] % (Auto) 1.9, Eos % (Auto) 0.0, Baso % (Auto) 0.1, Immature Gran # (Auto) 0.2, Neut # (Auto) 16.1 H, Lymph # (Auto) 0.5 L, [place] # (Auto) 0.3 L, Eos # (Auto) 0.0, Baso # (Auto) 0.0 11/23/18 04:21: Puncture Site Lb, O2 Saturation 94.0 L, ABG pH 7.283 L*, ABG pCO2 57.4 H, ABG pO2 81.0 L, ABG HCO3 27.1 H, ABG Total CO2 29 H, ABG Base Excess 0, Nathanael Test +, O2 Delivery Device Bnc, Oxygen Liter Flow 2.00, FiO2 % 28.0 ASSESSMENT: Please see below. 1. Acute respiratory failure. 2. Severe COPD exacerbation. 3. Hyperglycemia, improving. 4. Smoker. PLAN: 1. Probiotics twice a day. 2. Ativan 1 mg at h.s. 3. Xopenex q.6hr. 4. D/C Albuterol. 5. Pulmicort 1 mg b.i.d. 6. Restart Jardiance. 7. Restart Januvia. Plan and coordination of the patient's care discussed in the presence of [employer] and nurse. CONDITION: Stable SCRIBED BY: IKE PIERCE Electric Train Driver scribed while in presence of service performed by Dr. Smith/Yulia Luis APRN on 11/23/18 ([id number])
[2018-11-23] MEDS: XOPENEX 1.25 MG NEB SCH ×3 (11:13→22:33)
[2018-11-23] MEDS ORDERED: TORADOL IVP PRN ×2 (13:05→21:00)
[2018-11-23] MEDS ORDERED: TORADOL ONE (13:08)
[2018-11-23] MEDS: PULMICORT 1 MG/2 ML NEB SCH (17:05)
[2018-11-23] MEDS ORDERED: NON-FORMULARY MEDICATION (Sitagliptin Phosphate 100 MG) PO SCH (21:00)
[2018-11-23] MEDS: ATIVAN PO SCH (21:40)
[2018-11-23] MEDS: JANUVIA PO SCH (21:40)
[2018-11-24] MEDS: SOLU-MEDROL 125 MG IVP SCH ×3 (04:34→21:13)
[2018-11-24] MEDS: PULMICORT 1 MG/2 ML NEB SCH ×2 (04:55→16:55)
[2018-11-24] MEDS: XOPENEX 1.25 MG NEB SCH ×4 (04:55→23:10)
[2018-11-24] MEDS: HUMULIN R SUBCUT PRN ×4 (05:19→21:15)
[2018-11-24] MEDS: SODIUM CHLORIDE 1,000 ML IV SCH (06:10)
[2018-11-24] MEDS: JARDIANCE PO SCH (09:03)
[2018-11-24] MEDS: FLORASTOR PO SCH ×2 (09:04→21:14)
[2018-11-24] MEDS: LOVENOX SUBCUT SCH (09:05)
[2018-11-24] MEDS: ROCEPHIN 1 GM in SODIUM CHLORIDE 50 ML IV SCH (09:05)
[2018-11-24] MEDS: PROTONIX IV IVP SCH (09:59)
[2018-11-24] MEDS: OMNICEF PO SCH ×2 (09:59→21:14)
[2018-11-24] MEDS: ATIVAN PO SCH (21:14)
[2018-11-24] MEDS: JANUVIA PO SCH (21:14)
[2018-11-25] MEDS: XOPENEX 1.25 MG NEB SCH ×2 (04:15→11:25)
[2018-11-25] MEDS: PULMICORT 1 MG/2 ML NEB SCH (04:15)
[2018-11-25 05:21] VITALS: BP 134/74; TEMP 97.7
[2018-11-25] MEDS: SOLU-MEDROL 125 MG IVP SCH ×2 (05:49→12:12)
[2018-11-25] MEDS: HUMULIN R SUBCUT PRN ×2 (06:20→10:29)
[2018-11-25] MEDS: PROTONIX IV IVP SCH (08:19)
[2018-11-25] MEDS: OMNICEF PO SCH (08:19)
[2018-11-25] MEDS: JARDIANCE PO SCH (08:19)
[2018-11-25] MEDS: FLORASTOR PO SCH (08:20)
[2018-11-25] MEDS: LOVENOX SUBCUT SCH (08:21)
--- NOTE | 2018-11-27 09:27 | PN ---
DATE OF SERVICE: 11/25/18 SUBJECTIVE: 73 year old white female hospitalized with acute respiratory failure. The patient's condition has improved. His morning the blood gasses looks a lot better. PH 7.35 with pO2 of 60 with pCO2 45 with 89-90% of saturation on 2 liters. REVIEW OF SYSTEMS: CONSTITUTIONAL: No night sweats. No fatigue, malaise, lethargy. No fever or chills. HEENT: Eyes: No visual changes. No eye pain. No eye discharge. ENT: No runny nose. No epistaxis. No sinus pain. No sore throat. No odynophagia. No congestion. RESPIRATORY: No cough, no congestion. No hemoptysis. No shortness of breath. CARDIOVASCULAR: No angina symptoms. No CHF symptoms. No atypical chest pain for CAD. No palpitations. No PND. No orthopnea. GASTROINTESTINAL: No abdominal pain. No nausea or vomiting. No diarrhea or constipation. No hematemesis. No hematochezia. GENITOURINARY: No urgency. No frequency. No dysuria. No hematuria. No obstructive symptoms. No discharge. No pain. No significant abnormal bleeding. MUSCULOSKELETAL: No musculoskeletal pain; no joint swelling. NEUROLOGICAL: No headache. No neck pain. No syncope. No seizures. No dizziness. PSYCHIATRIC: Not anxious. No depression. No suicidal thoughts. No homicidal thoughts. SKIN: No rash. No lesions. No wounds. ENDOCRINE: No unexplained weight loss. No weight gain. HEMATOLOGIC/LYMPHATIC: No anemia. No purpura. No petechiae. No prolonged or excessive bleeding. No palpable lymph nodes. PHYSICAL EXAMINATION: GENERAL: The patient is oriented to time, place and person. Wants to go home. In fact she wants to go home for past two days. VITAL SIGNS: Temperature 97.7, pulse 84, respiratory rate 23, blood pressure 134/74 and pulse ox 96% on 2 liters. HEENT: Head normocephalic, atraumatic. Eyes: Extraocular muscles are intact. Pupils are equal, round and reactive to light and accommodation. Ears: No lesions. Nose appeared normal. Throat: No exudate or erythema. NECK: Supple. No JVD, no carotid bruit. No lymphadenopathy or thyromegaly. LUNGS: Decreased breath sounds but good air entry. Clear to auscultation. Percussion note normal. Chest symmetrical. HEART: S1, S2, no S3. No murmurs. No cyanosis or clubbing. No ascites. Pulses: Dorsalis pedis and posterior tibial pulses +1 to +2 bilaterally. ABDOMEN: Soft. Nontender. Bowel sounds active. No CVA tenderness. No mass felt. EXTREMITIES: No edema. Full range of motion of all extremities, equal. NEUROLOGIC: No focal deficit. Cranial nerves II through XII are grossly intact. No headache, no double vision or headache. SKIN: Not dry. Intact. Turgor - normal. LYMPHATIC: No palpable lymph nodes/no lymphedema. MUSCULOSKELETAL: Normal joints with no swelling. Muscle tone is normal. ASSESSMENT: 1. Respiratory failure seems to be under control 2. Chronic smoker, counseling for smoking done. 3. Chronic lung disease 4. Hypertension 5. Dyslipidemia 6. Diabetes Mellitus 7. Advised to continue all the medications as prescribed. PLAN: 1. Three step oxygen test was positive, she is qualifying for oxygen. The patient is going to be sent home with oxygen. 2. Advised not to smoke. 3. Take the oxygen as much as she could take 4. Discharge medications Omnicef and Prednisone. 5. Again, the patient is explained all the changes in the medications. 6. She is noncompliant. PROGNOSIS: Poor TIME SPENT: More than 30 minutes. Plan and coordination of the patient's care discussed in the presence of nurse. DELICIA
--- NOTE | 2018-11-27 09:42 | DS ---
DATE OF SERVICE: 11/25/18 FINAL DIAGNOSIS: 1. Acute respiratory failure 2. Acute bronchitis 3. Severe chronic lung disease with history of continued smoking 4. Diabetes Mellitus 5. Diabetic neuropathy 6. Dyslipidemia 7. Hypertension 8. Chronic kidney disease 9. Chronic anemia 10.Restless leg syndrome DISCHARGE INSTRUCTIONS: Discharge the patient home. Instruction to come back on Tuesday at 10am. Pulmonary rehab declined MEDICATIONS AT DISCHARGE: Aspirin Fenofibrate Lovastatin Symbicort Januvia Gabapentin is reduced to 300mg PO twice a day Requip Plavix DUO NEBS four times a day PRN Protonix 40mg daily Lorazepam 1mg at night Carvedilol to reduced to 12.5mg PO twice a day NEW PRESCRIPTIONS: Omnicef 300mg PO twice a day for 7 days Prednisone 10mg two tablets for 5 days and one tablet for 10 days Oxygen DISCONTINUED MEDICATIONS: Amlodipine Jardiance Lisinopril/Hydrochlorothiazide 20-12.5 once a day Metformin for now. DIET INSTRUCTIONS: As tolerated ACTIVITY: Advised to rest. SMOKING: Don't smoke. DISEASE SPECIFIC EDUCATION: Oxygen New medications Followup appointment Discontinued medications Respiratory failure Smoking HOSPITAL COURSE: 73 year old white female hospitalized with acute respiratory failure with severe hypoxemia. The patient had similar problems about 5-6 days ago were she was hospitalized and treated successfully and then discharged home. The patient went into the same problems and is noncompliant and started smoking, mixing up her medications. Once again she responded to treated. At the time of discharge the patient was up and about doing very well with normal appetite. Blood gasses were practically normal on 2 liters for her. Again, the same advise was given to the patient once more time. At the time of discharge hgb 12, hct 39, WBC 11, 000 normal differential, creatinine 1.1, BUN 37 and potassium 3.6, glucose 239. Glucose has been running high because of steroids. She is on sliding scale and was advised to continued the same medications. She has been taken off Metformin because of abnormal kidney profile that she gets into with dehydration. TIME SPENT: More than 60 minutes. MTDD
--- NOTE | 2018-11-27 09:43 | PN ---
11/21/18: Level 5 11/22/18: Extensive 11/23/18: Intermediate 11/24/18: Intermediate 11/25/18: D as in discharge MTDD
--- NOTE | 2018-11-28 10:55 | PN ---
DATE OF SERVICE: 11/24/18 SUBJECTIVE: The patient was seen and examined today. 73 year old white female admitted with acute respiratory failure. The patient's respiratory failure seems to be under control. She still has hypoxemia. pO2 acceptable with oxygen saturation of 94% on 2 liters. She is oriented to time,place and person. As usual she wants to go home, she wants to smoke. The is in the room. REVIEW OF SYSTEMS: CONSTITUTIONAL: No night sweats. No fatigue, malaise, lethargy. No fever or chills. HEENT: Eyes: No visual changes. No eye pain. No eye discharge. ENT: No runny nose. No epistaxis. No sinus pain. No sore throat. No odynophagia. No congestion. RESPIRATORY: No cough, no congestion. No hemoptysis. No shortness of breath. CARDIOVASCULAR: No angina symptoms. No CHF symptoms. No atypical chest pain for CAD. No palpitations. No PND. No orthopnea. GASTROINTESTINAL: No abdominal pain. No nausea or vomiting. No diarrhea or constipation. No hematemesis. No hematochezia. GENITOURINARY: No urgency. No frequency. No dysuria. No hematuria. No obstructive symptoms. No discharge. No pain. No significant abnormal bleeding. MUSCULOSKELETAL: No musculoskeletal pain; no joint swelling. NEUROLOGICAL: No headache. No neck pain. No syncope. No seizures. No dizziness. PSYCHIATRIC: Not anxious. No depression. No suicidal thoughts. No homicidal thoughts. SKIN: No rash. No lesions. No wounds. ENDOCRINE: No unexplained weight loss. No weight gain. HEMATOLOGIC/LYMPHATIC: No anemia. No purpura. No petechiae. No prolonged or excessive bleeding. No palpable lymph nodes. PHYSICAL EXAMINATION: GENERAL: The patient is , lying/sitting in bed in no distress. VITAL SIGNS: Temperature 97.7, pulse 84, respiratory rate 28, blood pressure 140/87, pulse ox 94% on 2 liters. HEENT: Head normocephalic, atraumatic. Eyes: Extraocular muscles are intact. Pupils are equal, round and reactive to light and accommodation. Ears: No lesions. Nose appeared normal. Throat: No exudate or erythema. NECK: Supple. No JVD, no carotid bruit. No lymphadenopathy or thyromegaly. LUNGS: Decreased breath sounds with better air entry than yesterday. Clear to auscultation. Percussion note normal. Chest symmetrical. HEART: S1, S2, no S3. No murmurs. No cyanosis or clubbing. No ascites. Pulses: Dorsalis pedis and posterior tibial pulses +1 to +2 bilaterally. ABDOMEN: Soft. Nontender. Bowel sounds active. No CVA tenderness. No mass felt. EXTREMITIES: No edema. Full range of motion of all extremities, equal. NEUROLOGIC: No focal deficit. Cranial nerves II through XII are grossly intact. No headache, no double vision or headache. SKIN: Not dry. Intact. Turgor - normal. LYMPHATIC: No palpable lymph nodes/no lymphedema. MUSCULOSKELETAL: Normal joints with no swelling. Muscle tone is normal. LABS: Hgb 11.2, hct 38, WBC 15,000 normal differential, creatinine 1, BUN 21, potassium 3.5, glucose 227. ASSESSMENT: 1. Respiratory failure under control 2. Chronic respiratory failure 3. Diabetes Mellitus 4. COPD with smoking 5. Hypertension PLAN: 1. Did the counseling for smoking again 2. Discontinue IV fluids 3. Regular diet 4. Discontinue Rocephin 5. We will put her on Omnicef 300mg twice a day 6. Discontinue Gao Catheter 7. Up and about CONDITION: Stable, improving. TIME SPENT: More than 30 minutes. Plan and coordination of the patient's care discussed in the presence of nurse. DELICIA
--- NOTE | 2018-11-28 11:13 | PN ---
DATE OF SERVICE: 11/23/18 SUBJECTIVE: The patient was hospitalized with acute respiratory failure. The patient's condition has improved. Blood gasses are a lot better. Oxygen saturation with BIPAP more than 95% and strongly advised to have BIPAP at home which may help her. She is oriented to time, place and person. Appetite has improved. The patient is going to be continued on IV antibiotics, steroids, NEBS and BIPAP will be weaned off. Mitral blood gassed. She is a DNR and doesn't want any referral. CONDITION: Stabilizing. The as usual is in the room The patient was seen and examined with Nurse Practitioner. TIME SPENT: More than 30 minutes. Plan and coordination of the patient's care discussed in the presence of nurse. DELICIA
== END 2018-11-25 14:00 | disposition home or self-care (01) | DRG 637 ==
LOC: ED 10:35 → SCU 14:24
PROVIDERS: ADMIT Internal Medicine; ATTEND Internal Medicine
DX: E11.10 Type 2 diabetes mellitus with ketoacidosis without coma (principal); J96.00 Acute respiratory failure, unspecified whether with hypoxia or hypercapnia; J44.1 Chronic obstructive pulmonary disease with (acute) exacerbation; R53.1 Weakness; R06.01 Orthopnea; R06.2 Wheezing; R14.0 Abdominal distension (gaseous); R30.0 Dysuria; J20.9 Acute bronchitis, unspecified; E11.40 Type 2 diabetes mellitus with diabetic neuropathy, unspecified; E78.5 Hyperlipidemia, unspecified; I10 Essential (primary) hypertension; N18.9 Chronic kidney disease, unspecified; D64.9 Anemia, unspecified; G25.81 Restless legs syndrome; Z72.0 Tobacco use
CPT/HCPCS: 36415; 80053; 81001; 82009; 82803; 82962; 83605; 84145; 84484; 85008; 85025; 87040; 87493; 93005; 93010; 94640; 94660; 94761; 96361; 96365; 96366; 96367; 97802; 99284

== ENCOUNTER 2018-12-04 13:36 | Outpatient (CLI) ==
[2018-12-04 17:16] VITALS: BMI 26.9
== END 2018-12-04 13:43 | disposition critical access hospital (66) ==
LOC: AMBL 13:36
PROVIDERS: ATTEND Internal Medicine
DX: R53.1 Weakness (principal); R25.1 Tremor, unspecified; R73.9 Hyperglycemia, unspecified; Z99.81 Dependence on supplemental oxygen; W19.XXXA Unspecified fall, initial encounter

== ENCOUNTER 2018-12-04 13:51 | Inpatient (IN) | payer OTHER ==
[2018-12-04] MEDS ORDERED: DUONEB NEB STA (14:42)
[2018-12-04] MEDS ORDERED: SODIUM CHLORIDE 1,000 ML IV STA (14:42)
[2018-12-04] MEDS ORDERED: ZOSYN 3.375 GM 3.375 GM in SODIUM CHLORIDE 50 ML IV STA (14:44)
[2018-12-04] MEDS ORDERED: SOLU-MEDROL 125 MG IVP STA (14:46)
[2018-12-04] MEDS ORDERED: HUMULIN R SUBCUT STA (15:58)
[2018-12-04] MEDS ORDERED: ROCEPHIN 1 GM in SODIUM CHLORIDE 50 ML IV STA ×2 (16:01→16:02)
--- NOTE | 2018-12-04 16:05 | ED.PDOC ---
General ED Provider: Dr. BERNICE BAEZ Chief Complaint: Weakness Stated Complaint: COPD /S.O.B Time Seen by Physician: 14:00 (SEEN BY PMD IN THE [facility] ) Mode of Arrival: Ambulance Information Source: Patient, Family, EMT Exam Limitations: No limitations Primary Care Provider: BRINDA SMITH Nursing and Triage Documentation Reviewed and Agree: Yes Does patient meet sepsis criteria?: No System Inflammatory Response Syndrome: Not Applicable Sepsis Protocol: For patient's 13 years and over: Temp is 96.8 and below OR 101 and greater Pulse >90 BPM Resp >20/minute Acutely Altered Mental Status Are patient's symptoms suggestive of a new infection, such as: -Pneumonia -Skin, Soft Tissue -Endocarditis -UTI -Bone, Joint Infection -Implantable Device -Acute Abdominal Infection -Wound Infection -Meningitis -Blood Stream Catheter Infection -Unknown Respiratory Complaint Exam - Respiratory Complaint/Exam Onset/Duration: TODAY ALSO A CHRONIC ISSUE Symptoms Are: Still present Timing: Intermittent Initial Severity: Mild Current Severity: Mild Location: Nose, Throat, Chest Character: Reports: Non-productive cough, Dry cough Aggravating: Reports: URI Alleviating: Reports: None Associated Signs and Symptoms: Reports: Rapid breathing, Dyspnea. Denies: Fever , Chills, Chest pain, Pleuritic chest pain, Wheezing, Hemoptysis, Dizziness, Calf pain, Calf swelling, Edema, URI, Nasal congestion, Hoarseness, Sinus discomfort, Vomiting, Sore throat, Weight loss, Decreased oral intake, Increased thirst, Increased appetite, Increased urination Related History: Reports: Similar episode History of Healthcare-Acquired Pneumonia: No Related Surgical History: Reports: None Pulmonary Embolism Risk Factors: Bedrest Cardiac Risk Factors: Reports: Diabetes, Hypertension Pseudomonas Risk Factors: Reports: None Tuberculosis Risk Factors: Reports: None Status Asthmaticus Risk Factors: Reports: None Home Oxygen Use: Yes Recent Stress Test: Yes Recent Echo/LV Function: Yes Current Antibiotic Use: No Current Asthma Medication Use: Yes Respiratory Distress: Moderate Inadequate Respiratory Effort: Yes Dysphagia Present: No Stridor Present: No JVD Present: No Accessory Muscle Use: No Retractions: Not Present Diminished Breath Sounds: Yes Prolonged Respiration: Expiratory phase Sinus Tenderness: None Grunting Respirations: No Kussmaul Respirations: No Differential Diagnoses: COPD Exacerbation, Pneumonia, Bronchitis Quality Indicators For Pneumonia: Antibiotics in 6hr-admit, SpO2 assessed, Empiric Antibiotic Rx, Vital signs, Mental status assessed Non-Traumatic Chest Pain Syncope: EKG Performed Review of Systems - Review Of Systems Constitutional: Reports: Malaise Eyes: Reports: No symptoms Ears, Nose, Mouth, Throat: Reports: No symptoms Respiratory: Reports: Cough, Short of air Cardiac: Reports: No symptoms GI: Reports: No symptoms : Reports: No symptoms Musculoskeletal: Reports: No symptoms Skin: Reports: No symptoms Neurological: Reports: No symptoms Endocrine: Reports: No symptoms Hematologic/Lymphatic: Reports: No symptoms All Other Systems: Reviewed and Negative Past Medical History - Past Medical History Previously Healthy: No Endocrine: Reports: DM 2, Dyslipidemia Cardiovascular: Reports: Hypertension Respiratory: Reports: COPD Hematological: Reports: None Gastrointestinal: Reports: None Genitourinary: Reports: Unknown Neuro/Psych: Reports: TIA Musculoskeletal: Reports: None Cancer: Reports: None Last Menstrual Period: none - Surgical History General Surgical History: Reports: None - Family History Family History: Reports: None - Social History Smoking Status: Current every day smoker, Light tobacco smoker Hx Substance Use: No Alcohol Screening: None Physical Exam - Physical Exam Appearance: Ill-appearing Ill-appearing: Moderate Pain Distress: Mild Eyes: VIDA, EOMI, Conjunctiva clear ENT: Ears normal, Nose normal, Oropharynx normal Respiratory: Breath sounds diminished, Rhonchi Cardiovascular: RRR, Pulses normal, No rub, No murmur GI/: Soft, Nontender, No masses, Bowel sounds normal, No Organomegaly Musculoskeletal: Normal strength, ROM intact, No edema, No calf tenderness Skin: Warm, Dry, Normal color Neurological: Sensation intact, Motor intact, Reflexes intact, Cranial nerves intact, Alert, Oriented Psychiatric: Affect appropriate, Mood appropriate Re-Evaluation - Re-Evaluation Time of Re-Evaluation: 15:00 Status: Improved Vital Signs Stable: Yes Pain Level: 0 Appearance: NAD Lungs: Other (RONCHI, WHEEZ) Skin: Warm and Dry Neuro: Alert and Oriented X3 CV: RRR - Re-Evaluation Time of Re-Evaluation: 16:08 Status: Improved Vital Signs Stable: Yes Pain Level: 0 Appearance: NAD Skin: Warm and Dry Neuro: Alert and Oriented X3 CV: RRR Physician Notification - Case Discussed Physician Notified: PMD Time of Notification: 16:06 (SAW PT IN ED ) Critical Care Note - Critical Care Note Total Time (mins): 0 Course - Course Hematology/Chemistry: 12/04/18 14:58 12/04/18 14:58 Orders, Labs, Meds: Lab Review 12/04/18 12/04/18 12/04/18 14:20 14:58 14:58 WBC 11.89 H RBC 4.28 Hgb 10.8 L Hct 37.7 MCV 88.1 MCH 25.2 L MCHC 28.6 L RDW Coeff of Jerome 18.2 H Plt Count 257 Immature Gran % (Auto) 1.0 Neut % (Auto) 91.6 Lymph % (Auto) 4.0 L [place] % (Auto) 2.9 Eos % (Auto) 0.3 Baso % (Auto) 0.2 Immature Gran # (Auto) 0.1 Neut # (Auto) 10.9 H Lymph # (Auto) 0.5 L [place] # (Auto) 0.4 Eos # (Auto) 0.0 Baso # (Auto) 0.0 Hypochromasia 1+ Anisocytosis Not present Puncture Site R rad O2 Saturation 96.0 ABG pH 7.225 L* ABG pCO2 97.5 H ABG pO2 100.0 ABG HCO3 40.4 H ABG Total CO2 43 H ABG Base Excess 13 H Nathanael Test + O2 Delivery Device Nc Oxygen Liter Flow 2.00 Sodium 135.5 Potassium 3.90 Chloride 88.9 L Carbon Dioxide 39.0 H Anion Gap 11.50 BUN 37.6 H Creatinine 1.65 H Estimated GFR (MDRD) 31.00 BUN/Creatinine Ratio 22.78 Glucose 566.3 H* Lactic Acid Calcium 9.01 Total Bilirubin 0.74 AST 14.8 ALT 23.3 Alkaline Phosphatase 67.9 Total Creatine Kinase < 20.0 L Troponin I 0.021 Total Protein 4.71 L Albumin 2.93 L Globulin 1.78 Albumin/Globulin Ratio 1.64 Procalcitonin 12/04/18 12/04/18 14:58 14:58 WBC RBC Hgb Hct MCV MCH MCHC RDW Coeff of Jerome Plt Count Immature Gran % (Auto) Neut % (Auto) Lymph % (Auto) [place] % (Auto) Eos % (Auto) Baso % (Auto) Immature Gran # (Auto) Neut # (Auto) Lymph # (Auto) [place] # (Auto) Eos # (Auto) Baso # (Auto) Hypochromasia Anisocytosis Puncture Site O2 Saturation ABG pH ABG pCO2 ABG pO2 ABG HCO3 ABG Total CO2 ABG Base Excess Nathanael Test O2 Delivery Device Oxygen Liter Flow Sodium Potassium Chloride Carbon Dioxide Anion Gap BUN Creatinine Estimated GFR (MDRD) BUN/Creatinine Ratio Glucose Lactic Acid 0.66 L Calcium Total Bilirubin AST ALT Alkaline Phosphatase Total Creatine Kinase Troponin I Total Protein Albumin Globulin Albumin/Globulin Ratio Procalcitonin 0.14 Orders Category Date Time Status ADMIT PATIENT INPATIENT .TO SCU (MONITORED BED) ADMISSION 12/04/18 16:02 Active ABG DRAW REQUEST DAILY@0600 CARDIO 12/05/18 06:00 Ordered ABG DRAW REQUEST DAILY@0600 CARDIO 12/06/18 06:00 Ordered ABG DRAW REQUEST DAILY@0600 CARDIO 12/07/18 06:00 Ordered ABG DRAW REQUEST DAILY@0600 CARDIO 12/08/18 06:00 Ordered ABG DRAW REQUEST Stat CARDIO 12/04/18 14:26 Completed ABG DRAW REQUEST Stat CARDIO 12/04/18 14:42 Ordered BIPAP Routine CARDIO 12/04/18 14:44 Ordered EKG-(ED ONLY) Stat CARDIO 12/04/18 14:26 Completed EKG-(IP & OP ONLY) DAILY CARDIO 12/05/18 06:00 Ordered EKG-(IP & OP ONLY) DAILY CARDIO 12/06/18 06:00 Ordered EKG-(IP & OP ONLY) DAILY CARDIO 12/07/18 06:00 Ordered NEBULIZER TREATMENT Stat CARDIO 12/04/18 14:42 Ordered NEBULIZER TREATMENT Stat CARDIO 12/04/18 15:57 Ordered ACTIVITY .Complete BR CARE 12/04/18 15:54 Active BLOOD GLUCOSE MONITORING ACCUCHECK Q6H CARE 12/04/18 15:54 Active GIVE HS SNACK 2100 CARE 12/04/18 15:55 Active INTAKE & OUTPUT Q8HR CARE 12/04/18 15:54 Active Neuro Check [NEUROLOGICAL CHECKS] Q4HR CARE 12/04/18 15:59 Active TELEMETRY MONITORING TELE CARE 12/04/18 16:02 Active VITAL SIGNS Q4HR CARE 12/04/18 15:54 Active ADA 1800 MUNIRA. DIET DIETARY 12/04/18 Dinner Ordered HS SNACK DIETARY 12/04/18 Dinner Ordered ABG DAILY@0600 LAB 12/05/18 06:00 Ordered ABG DAILY@0600 LAB 12/06/18 06:00 Ordered ABG DAILY@0600 LAB 12/07/18 06:00 Ordered ABG DAILY@0600 LAB 12/08/18 06:00 Ordered ABG Stat LAB 12/04/18 14:20 Completed ABG Stat LAB 12/04/18 14:42 Ordered BLOOD CULTURE (ED ONLY) Stat LAB 12/04/18 14:58 Received CBC W/ AUTO DIFF DAILY@0600 LAB 12/05/18 06:00 Ordered CBC W/ AUTO DIFF DAILY@0600 LAB 12/06/18 06:00 Ordered CBC W/ AUTO DIFF Stat LAB 12/04/18 14:58 Completed COMPREHENSIVE METABOLIC PANEL DAILY@0600 LAB 12/05/18 06:00 Ordered COMPREHENSIVE METABOLIC PANEL DAILY@0600 LAB 12/06/18 06:00 Ordered COMPREHENSIVE METABOLIC PANEL Stat LAB 12/04/18 14:58 Completed CREATINE KINASE Q8H LAB 12/04/18 22:00 Ordered CREATINE KINASE Q8H LAB 12/05/18 06:00 Ordered CREATINE KINASE Stat LAB 12/04/18 14:58 Completed LACTIC ACID Stat LAB 12/04/18 14:58 Completed PROCALCITONIN Stat LAB 12/04/18 14:58 Completed RBC MORPHOLOGY Stat LAB 12/04/18 14:58 Completed TROPONIN I Q8H LAB 12/04/18 22:00 Ordered TROPONIN I Q8H LAB 12/05/18 06:00 Ordered TROPONIN I Stat LAB 12/04/18 14:58 Completed URINALYSIS C & S IF INDICATED Stat LAB 12/04/18 14:41 Uncollected Aspirin [Aspirin Chewable] MEDS 12/05/18 08:00 Ordered 81 mg PO DAILYWM Carvedilol [Coreg] MEDS 12/04/18 21:00 Ordered 25 mg PO BID Ceftriaxone Sodium [Rocephin] 1 gm MEDS 12/04/18 16:01 Ordered 0.9 % Sodium Chloride [Sodium Chloride] 50 ml IV ONCE Ceftriaxone Sodium [Rocephin] 1 gm MEDS 12/04/18 16:02 Ordered 0.9 % Sodium Chloride [Sodium Chloride] 50 ml IV ONCE Clopidogrel Bisulfate [Plavix] MEDS 12/05/18 09:00 Ordered 75 mg PO DAILY Fenofibrate [Triglide] MEDS 12/04/18 21:00 Ordered 54 mg PO BEDTIME Gabapentin [Neurontin] MEDS 12/04/18 21:00 Ordered 300 mg PO BID Insulin Regular, Human [Humulin R] MEDS 12/04/18 15:58 Discontinued 10 unit SUBCUT ONCE STA Insulin Regular, Human [Humulin R] MEDS 12/04/18 15:57 Active See Protocol SUBCUT PRN PRN Ipratropium/Albuterol Neb [Duoneb] MEDS 12/04/18 14:42 Discontinued 1 vial NEB ONCE STA Ipratropium/Albuterol Neb [Duoneb] MEDS 12/04/18 18:00 Active 1 vial NEB RTQ6H Lisinopril/Hydrochlorothiazide [Zestoretic 20-12.5 mg MEDS 12/05/18 09:00 Ordered Tab] 1 tab PO DAILY Lorazepam [Ativan] MEDS 12/04/18 21:00 Ordered 0.5 mg PO BEDTIME Lovastatin [Lovastatin] MEDS 12/04/18 17:00 Ordered 40 mg PO 1700 Methylprednisolone Sod Succ/Pf [Solu-Medrol 125 mg] MEDS 12/04/18 14:46 Discontinued 125 mg IVP ONCE STA Methylprednisolone Sod Succ/Pf [Solu-Medrol 40 mg] MEDS 12/04/18 21:00 Active 40 mg IVP Q12HR Metolazone [Zaroxolyn] MEDS 12/04/18 21:00 Ordered 2.5 mg PO BID Pantoprazole Sodium [Protonix] MEDS 12/05/18 06:30 Ordered 40 mg PO QDAC Piperacillin Sodium/Tazobactam [Zosyn 3.375 gm] 3.375 MEDS 12/04/18 14:44 Discontinued gm 0.9 % Sodium Chloride [Sodium Chloride] 50 ml IV ONCE Ropinirole HCl [Requip] MEDS 12/04/18 21:00 Ordered 1 mg PO BID Sodium Chloride 0.9% [Sodium Chloride] 1,000 ml MEDS 12/04/18 16:00 Active IV 75 mls/hr Sodium Chloride 0.9% [Sodium Chloride] 1,000 ml MEDS 12/04/18 14:[address] CHEST W/O CONTRAST Stat RADS 12/04/18 14:43 Ordered Medications Generic Name Dose Route Start Last Admin Trade Name Freq PRN Reason Stop Dose Admin Albuterol/Ipratropium 1 vial 12/04/18 18:00 Duoneb NEB RTQ6H [facility] Aspirin 81 mg 12/05/18 08:00 Aspirin Chewable PO DAILYWM [facility] Carvedilol 25 mg 12/04/18 21:00 Coreg PO BID [facility] Clopidogrel Bisulfate 75 mg 12/05/18 09:00 Plavix PO DAILY [facility] Fenofibrate 54 mg 12/04/18 21:00 Triglide PO BEDTIME [facility] Gabapentin 300 mg 12/04/18 21:00 Neurontin PO BID [facility] Lisinopril/HCTZ 1 tab 12/05/18 09:00 Zestoretic 20-12.5 Mg Tab PO DAILY [facility] Sodium Chloride 1,000 mls @ 75 mls/hr 12/04/18 16:00 Sodium Chloride IV .[id number] [facility] Insulin Human Regular 0 unit 12/04/18 15:57 Humulin R SUBCUT PRN PRN Hyperglycemia Protocol Lorazepam 0.5 mg 12/04/18 21:00 Ativan PO BEDTIME [facility] Methylprednisolone Sodium Succinate 40 mg 12/04/18 21:00 Solu-Medrol 40 Mg IVP Q12HR [facility] Metolazone 2.5 mg 12/04/18 21:00 Zaroxolyn PO BID [facility] Non-Formulary Medication 40 mg 12/04/18 17:00 Lovastatin [Lovastatin] PO 1700 [facility] Pantoprazole Sodium 40 mg 12/05/18 06:30 Protonix PO QDAC [facility] Ropinirole HCl 1 mg 12/04/18 21:00 Requip PO BID [facility] Discontinued Medications Generic Name Dose Route Start Last Admin Trade Name Freq PRN Reason Stop Dose Admin Albuterol/Ipratropium 1 vial 12/04/18 14:42 Duoneb JESSICA 12/04/18 14:43 ONCE STA Sodium Chloride 1,000 mls @ 1,000 mls/hr 12/04/18 14:42 12/04/18 14:44 Sodium Chloride IV 12/04/18 15:41 1,000 mls/hr BOLUS STA Administration Piperacillin Sod/Tazobactam 50 mls @ 50 mls/hr 12/04/18 14:44 12/04/18 15:11 Sod 3.375 gm/ Sodium Chloride IV 12/04/18 15:43 50 mls/hr ONCE STA Administration Insulin Human Regular 10 unit 12/04/18 15:58 Humulin R SUBCUT 12/04/18 15:59 ONCE STA Methylprednisolone Sodium Succinate 125 mg 12/04/18 14:46 12/04/18 15:11 Solu-Medrol 125 Mg IVP 12/04/18 14:47 125 mg ONCE STA Administration Vital Signs: Temp Pulse Resp BP Pulse Ox 12/04/18 13:51 97.9 F 71 22 86/49 L 98 Departure - Departure Time of Disposition: 16:07 Disposition: ADMITTED INPATIENT Discharge Problem: COPD with exacerbation Uncontrolled diabetes mellitus Qualifiers: Diabetes mellitus type: type 2 Glycemic state: with hyperglycemia Qualified Code(s): E11.65 - Type 2 diabetes mellitus with hyperglycemia Instructions: COPD (Chronic Obstructive Pulmonary Disease) (ED), How Your Lungs Work (ED) Condition: Good Pt referred to PMD for follow-up: Yes IPMP verified?: No Additional Instructions: Please call your Family Physician as soon as possible to schedule a follow-up appointment. Allergies/Adverse Reactions: Allergies aloe Adverse Reaction (Verified 12/04/18 13:58) Latex, Natural Rubber Adverse Reaction (Verified 12/04/18 13:58) orange juice Adverse Reaction (Verified 12/04/18 13:58) venom-honey bee [bee venom (honey bee)] Adverse Reaction (Verified 12/04/18 13: 58) orange Adverse Reaction (Uncoded 11/09/18 15:41) Home Medications: Ambulatory Orders Aspirin [Aspirin Chewable] 81 mg PO DAILY 08/06/14 Fenofibrate 54 mg PO BEDTIME 08/06/14 Lovastatin 40 mg PO 1700 08/06/14 Budesonide/Formoterol Fumarate [Symbicort 160-4.5 Mcg Inhaler] 2 puff INH BID Sitagliptin Phosphate [Januvia] 100 mg PO BEDTIME 08/26/15 Gabapentin 300 mg PO BID 08/05/17 Ropinirole HCl [Requip] 1 mg PO BID 08/05/17 Clopidogrel Bisulfate [Plavix] 1 tab PO DAILY 08/29/17 [place]yr-3 Fatty Acids/Fish Oil [Fish Oil 1,000 mg Capsule] 1 cap PO BID 08/29/17 Ipratropium/Albuterol Neb [Duoneb] 1 vial NEB QID 07/26/18 Pantoprazole Sodium [Protonix] 40 mg PO QDAC 07/26/18 Calcium Carbonate/Vitamin D3 [Calcium 500 mg Chewable Tablet] 1 each PO DAILY Carvedilol [Coreg] 25 mg PO BID 11/21/18 Lisinopril/Hydrochlorothiazide [Zestoretic 20-12.5 mg Tab] 1 tab PO DAILY 1 Days #1 tablet 11/25/18 Lorazepam [Ativan] 0.5 mg PO BEDTIME 12/04/18 Metolazone [Zaroxolyn] 2.5 mg PO BID 12/04/18 Disposition Discussed With: Patient, Family
[2018-12-04] MEDS ORDERED: ROCEPHIN ONE (16:26)
[2018-12-04] MEDS: SODIUM CHLORIDE 1,000 ML IV SCH (16:32)
--- NOTE | 2018-12-04 16:38 | DI ---
EXAM: Two views of the chest. History: Short of breath Comparison: Chest radiograph 11/21/2018 Findings: Patient is rotated which limits evaluation. Heart is borderline enlarged. No focal conso lidation. No appreciable pleural fluid and no pneumothorax. No acute osseous abnormalities. Left s houlder arthroplasty hardware. Impression: Borderline cardiomegaly without acute disease in the chest
[2018-12-04] MEDS ORDERED: NON-FORMULARY MEDICATION (Lovastatin [Lovastatin] 40 MG) PO SCH (17:00)
[2018-12-04] MEDS: MEVACOR PO SCH (17:08)
[2018-12-04 17:16] VITALS: BMI 26.9
[2018-12-04] MEDS: DUONEB NEB SCH ×2 (17:22→23:09)
[2018-12-04] MEDS ORDERED: ATIVAN PO SCH (21:00)
[2018-12-04] MEDS ORDERED: ZAROXOLYN PO SCH (21:00)
[2018-12-04] MEDS: HUMULIN R SUBCUT PRN (21:20)
[2018-12-04] MEDS: SOLU-MEDROL 40 MG IVP SCH (21:20)
[2018-12-04] MEDS: TRIGLIDE PO SCH (21:21)
[2018-12-04] MEDS: REQUIP PO SCH (21:21)
[2018-12-04] MEDS: ATIVAN PO SCH (21:21)
[2018-12-04] MEDS: COREG PO SCH (21:21)
[2018-12-04] MEDS: NEURONTIN PO SCH (21:21)
[2018-12-05] MEDS: DUONEB NEB SCH (04:52)
[2018-12-05] MEDS: PROTONIX PO SCH (05:39)
[2018-12-05] MEDS: HUMULIN R SUBCUT PRN ×4 (05:48→20:52)
--- NOTE | 2018-12-05 07:41 | HP ---
DATE OF SERVICE: 12/04/18 REASON FOR HOSPITALIZATION/HISTORY OF PRESENT ILLNESS: This is a 73 year old white female who presents to the emergency room complaining of shortness of breath and weakness. She was recently hospitalized with acute respiratory failure. She has chronic respiratory failure and is on oxygen at home. PAST MEDICAL HISTORY: Chronic respiratory failure Severe COPD Smoker Diabetes Mellitus 2 Anxiety Dyslipidemia Neuropathy Restless leg syndrome GERD Hypertension Leg edema History of TIA PAST SURGICAL HISTORY: Left shoulder replacement Left knee replacement Cholecystectomy Hysterectomy Colonoscopy [address] Dr[address] Batista REVIEW OF SYSTEMS: CONSTITUTIONAL: No night sweats. Fatigue . No fever or chills. HEENT: Eyes: No visual changes. No eye pain. No eye discharge. ENT: No runny nose. No epistaxis. No sinus pain. No sore throat. No odynophagia. No ear pain. No congestion. RESPIRATORY: Cough, no congestion. No hemoptysis. Shortness of breath. CARDIOVASCULAR: No angina symptoms. No CHF symptoms. No atypical chest pain for CAD. No palpitations. No PND. No orthopnea. GASTROINTESTINAL: No abdominal pain. No nausea or vomiting. No diarrhea or constipation. No hematemesis. No hematochezia. GENITOURINARY: No urgency. No frequency. No dysuria. No hematuria. No obstructive symptoms. No discharge. No pain. No significant abnormal bleeding. MUSCULOSKELETAL: No musculoskeletal pain. No joint swelling. No arthritis. Weakness. NEUROLOGICAL: No headache. No neck pain. No syncope. No seizures. No dizziness. PSYCHIATRIC: Not anxious. No depression. No suicidal thoughts. No homicidal thoughts. SKIN: No rash. No lesions. No wounds. Leg edema ENDOCRINE: No unexplained weight loss. No weight gain. HEMATOLOGIC/LYMPHATIC: No anemia. No purpura. No petechiae. No prolonged or excessive bleeding. No palpable lymph nodes. PERSONAL/FAMILY/SOCIAL HISTORY: The patient is current heavy everyday smoker. She lives at home with her . No alcohol or illicit drug use. MEDICATIONS: Aspirin 81mg PO daily Lovastatin 40mg PO 1700 Fenofibrate 54mg PO bedtime Januvia 100mg PO bedtime Symbicort two puffs INH Twice a day Requip 1mg PO twice a day Gabapentin 300mg PO twice a day Fish oil 1,000mg PO twice a day Plavix 75mg PO daily DUONEB 1 vial NEB four times a day Protonix 40mg PO QDAC Calcium/Vitamin D3 1 tablet PO daily Coreg 25mg PO twice a day Zestoretic 20-12.5 one tablet PO daily Zaroxolyn 2.5mg PO twice a day Ativan 0.5mg PO bedtime ALLERGIES: Aloe Latex [place] juice Venom honey bee orange PHYSICAL EXAMINATION: VITAL SIGNS: Temperature 97.9, heart rate 71, respiratory rate 22, blood pressure 86/49 and pulse ox 98% on 2 liters. HEENT: Head normocephalic, atraumatic. Eyes: Extraocular muscles are intact. Pupils are equal, round and reactive to light and accommodation. Ears: No lesions. Nose appeared normal. Throat: No exudate or erythema. NECK: Supple. No JVD, no carotid bruit. No lymphadenopathy or thyromegaly. LUNGS: Severely diminished breath sounds with bilateral inspiratory and expiratory wheezing. Clear to auscultation. Percussion note normal. Chest symmetrical. HEART: S1, S2, no S3. No murmurs. No cyanosis or clubbing. No ascites. Pulses: Dorsalis pedis and posterior tibial pulses +1 to +2 bilaterally. ABDOMEN: Soft. Nontender. Bowel sounds active. No CVA tenderness. No mass felt. EXTREMITIES: Trace bilateral leg edema. Full range of motion of all extremities, equal. NEUROLOGIC: No focal deficit. Cranial nerves II through XII are grossly intact. No headache, no double vision or headache. SKIN: Not dry. Intact. Turgor - normal. LYMPHATIC: No palpable lymph nodes/no lymphedema. MUSCULOSKELETAL: Normal joints with no swelling. Muscle tone is normal. LABS: WBC 11.89, hgb 10.8, hct 37.7, plt count 257, ABG on 2 liters O2 saturation 96, pH 7.225, pCO2 97.5,. pO2 100, bicarb 40.4, total CO2 43, base excess 13. Sodium 135, potassium 3.9. Chloride 88, bicarb 39, BUN 37.6, creatinine 1.65, glucose 566, AST 14, ALT 23, Alkaline phosphatase 67, total protein 4.7 ASSESSMENT: 1. Acute respiratory failure 2. COPD with acute exacerbation 3. History of chronic respiratory failure 4. Smoker 5. Diabetes Mellitus type 2, uncontrolled glucose 566 PLAN: 1. We will admit to special care 2. Routine telemetry orders 3. CBC and CMP daily 4. Start normal saline at 75cc an hour 5. Solu-Cortef 125mg IV Q 8 hours 6. Continue home medications 7. U/A 8. CT chest 9. Oxygen as needed at 1-2 liters 10.Repeat ABG's in 30 minutes 11.Sliding scale insulin coverage 12.Hold blood pressure medication TIME SPENT: More than 70 minutes. MTDD
[2018-12-05] MEDS ORDERED: ZESTORETIC 20-12.5 MG TAB PO SCH (09:00)
[2018-12-05] MEDS ORDERED: LASIX IVP STA (09:16)
--- NOTE | 2018-12-05 09:16 | PCM.PROG ---
Attending Provider: ATTENDING PROVIDER: Dr. BRINDA SMITH This patient is seen with Yulia Luis, Nurse Practitioner. DATE OF SERVICE: 12/05/18 SUBJECTIVE: This 73 year old WHITE/ F was hospitalized 12/04/18. The patient is lying in bed alert and talking. ABGs improved. REVIEW OF SYSTEMS: CONSTITUTIONAL: Weakness. No night sweats. No fatigue, malaise, lethargy. No fever or chills. HEENT: Eyes: No visual changes. No eye pain. No eye discharge. ENT: No runny nose. No epistaxis. No sinus pain. No odynophagia. No congestion. RESPIRATORY: No cough, no congestion. No hemoptysis. Shortness of breath. CARDIOVASCULAR: No angina symptoms. No CHF symptoms. No atypical chest pain for CAD. No palpitations. No orthopnea.. GASTROINTESTINAL: No abdominal pain. No nausea or vomiting. No diarrhea or constipation. No hematemesis. No hematochezia. GENITOURINARY: No urgency. No frequency. No dysuria. No hematuria. No obstructive symptoms. No discharge. No pain. No significant abnormal bleeding. MUSCULOSKELETAL: No musculoskeletal pain; no joint swelling. NEUROLOGICAL: Awake, alert, oriented to time, place and person. No headache. No neck pain. No syncope. No seizures. No dizziness. PSYCHIATRIC: Not anxious. No depression. No suicidal thoughts. No homicidal thoughts. SKIN: No rash. No lesions. No wounds. ENDOCRINE: No unexplained weight loss. No weight gain. HEMATOLOGIC/LYMPHATIC: No anemia. No purpura. No petechiae. No prolonged or excessive bleeding. No palpable lymph nodes. PHYSICAL EXAMINATION: GENERAL: The patient is awake, alert and oriented, lying in bed in no distress. VITAL SIGNS: Temperature 98.4 F, Pulse 62, Respiratory Rate 20, BP 146/81, Pulse Ox 100% HEENT: Head normocephalic, atraumatic. Eyes: Extraocular muscles are intact. Pupils are equal, round and reactive to light and accommodation. Ears: No lesions. Nose appeared normal. Throat: No exudate or erythema. NECK: Supple. No JVD, no carotid bruit. No lymphadenopathy or thyromegaly. LUNGS: Severely diminished breath sounds. Clear to auscultation. Percussion note normal. Chest symmetrical. HEART: S1, S2, no S3. No murmurs. No cyanosis or clubbing. No ascites. Pulses: Dorsalis pedis and posterior tibial pulses +1 to +2 both sides. ABDOMEN: Soft. Non-tender. Bowel sounds active. No CVA tenderness. No mass felt. EXTREMITIES: +1 bilateral leg edema. Full range of motion of all extremities, equal. NEUROLOGIC: No focal deficit. Cranial nerves II through XII are grossly intact. No headache, no double vision or headache. SKIN: Not dry. Intact. Turgor-normal. LYMPHATIC: No palpable lymph nodes/no lymphedema. MUSCULOSKELETAL: Normal joints with no swelling. Muscle tone is normal. LAB REVIEW: 12/05/18 06:00 12/05/18 06:00 12/05/18 06:00: Sodium 138.6, Potassium 2.93 L, Chloride 95.3 L, Carbon Dioxide 37.1 H, Anion Gap 9.13, BUN 35.0 H, Creatinine 1.02 D, Estimated GFR (MDRD) 53.00, BUN/Creatinine Ratio 34.31, Glucose 295.4 H D, Calcium 8.79, Total Bilirubin 0.61, AST 13.9 L, ALT 22.2, Alkaline Phosphatase 55.9, Total Creatine Kinase < 20.0 L, Troponin I 0.031, Total Protein 4.52 L, Albumin 2.72 L, Globulin 1.80, Albumin/Globulin Ratio 1.51 12/05/18 06:00: WBC 10.39 H, RBC 3.96 L, Hgb 10.0 L, Hct 32.5 L, MCV 82.1 D, MCH 25.3 L, MCHC 30.8 L, RDW Coeff of Jerome 18.5 H, Plt Count 209, Immature Gran % (Auto) 0.9, Neut % (Auto) 92.8, Lymph % (Auto) 3.8 L, [place] % (Auto) 2.4, Eos % (Auto) 0.0, Baso % (Auto) 0.1, Immature Gran # (Auto) 0.1, Neut # (Auto) 9.6 H , Lymph # (Auto) 0.4 L, [place] # (Auto) 0.3 L, Eos # (Auto) 0.0, Baso # (Auto) 0.0 12/05/18 04:52: Puncture Site Lb, O2 Saturation 95.0, ABG pH 7.440, ABG pCO2 54.1 H, ABG pO2 75.0 L, ABG HCO3 36.7 H, ABG Total CO2 38 H, ABG Base Excess 13 H, Nathanael Test +, O2 Delivery Device Bipap, FiO2 % 32.0 12/04/18 22:15: Total Creatine Kinase < 20.0 L, Troponin I 0.021 12/04/18 14:58: Lactic Acid 0.66 L 12/04/18 14:58: Procalcitonin 0.14 12/04/18 14:58: Sodium 135.5, Potassium 3.90, Chloride 88.9 L, Carbon Dioxide 39.0 H, Anion Gap 11.50, BUN 37.6 H, Creatinine 1.65 H, Estimated GFR (MDRD) 31.00, BUN/Creatinine Ratio 22.78, Glucose 566.3 H*, Calcium 9.01, Total Bilirubin 0.74, AST 14.8, ALT 23.3, Alkaline Phosphatase 67.9, Total Creatine Kinase < 20.0 L, Troponin I 0.021, Total Protein 4.71 L, Albumin 2.93 L, Globulin 1.78, Albumin/Globulin Ratio 1.64 12/04/18 14:58: WBC 11.89 H, RBC 4.28, Hgb 10.8 L, Hct 37.7, MCV 88.1, MCH 25.2 L, MCHC 28.6 L, RDW Coeff of Jerome 18.2 H, Plt Count 257, Immature Gran % (Auto) 1.0, Neut % (Auto) 91.6, Lymph % (Auto) 4.0 L, [place] % (Auto) 2.9, Eos % (Auto) 0.3, Baso % (Auto) 0.2, Immature Gran # (Auto) 0.1, Neut # (Auto) 10.9 H, Lymph # (Auto) 0.5 L, [place] # (Auto) 0.4, Eos # (Auto) 0.0, Baso # (Auto) 0.0, Hypochromasia 1+, Anisocytosis Not present 12/04/18 14:42: Puncture Site Rrad, O2 Saturation 90.0 L, ABG pH 7.246 L*, ABG pCO2 87.2 H, ABG pO2 72.0 L, ABG HCO3 37.9 H, ABG Total CO2 41 H, ABG Base Excess 11 H, Nathanael Test +, O2 Delivery Device Bipap, FiO2 % 32.0 12/04/18 14:20: Puncture Site R rad, O2 Saturation 96.0, ABG pH 7.225 L*, ABG pCO2 97.5 H, ABG pO2 100.0, ABG HCO3 40.4 H, ABG Total CO2 43 H, ABG Base Excess 13 H, Nathanael Test +, O2 Delivery Device Nc, Oxygen Liter Flow 2.00 ASSESSMENT: Please see below. 1. Acute on chronic respiratory failure. 2. Severe COPD with exacerbation. 3. Uncontrolled diabetes mellitus type 2. 4. Dehydration, improved. 5. Hypokalemia. PLAN: 1. Wean off BIPAP as tolerated. 2. D/C Zaroxolyn. 3. Start potassium 40 mEq p.o. t.i.d. 4. Sliding scale. 5. Start Rocephin 1 gm IV daily. 6. Increase steroids to 125 q.8hr 7. Xopenex q.6hr. 8. Stop Duonebs. 10. Pulmicort 1 mg b.i.d. 11. D/C Zestoretic. 12. Cozaar 50 mg daily. 13. Lasix 20 mg IV today and p.o. tomorrow. 14. Dietary consultation. 15. Resume Januvia. Plan and coordination of the patient's care discussed in the presence of Betting Agency Manager and nurse. CONDITION: Stable SCRIBED BY: IKE PIERCE Unattended Ground Sensor Specialist scribed while in presence of service performed by Dr. Smith/Yulia Luis APRN on 12/05/18 ([id number])
[2018-12-05] MEDS: NEURONTIN PO SCH ×2 (09:25→20:52)
[2018-12-05] MEDS: REQUIP PO SCH ×2 (09:26→20:52)
[2018-12-05] MEDS: ASPIRIN CHEWABLE PO SCH (09:26)
[2018-12-05] MEDS: COZAAR PO SCH (09:26)
[2018-12-05] MEDS: K-DUR PO SCH ×3 (09:26→16:45)
[2018-12-05] MEDS: PLAVIX PO SCH (09:26)
[2018-12-05] MEDS: COREG PO SCH ×2 (09:26→20:51)
[2018-12-05] MEDS ORDERED: SOLU-MEDROL 40 MG IVP SCH (09:30)
[2018-12-05] MEDS: SOLU-MEDROL 40 MG IVP SCH (09:32)
[2018-12-05] MEDS: SODIUM CHLORIDE 1,000 ML IV SCH ×2 (09:35→20:55)
[2018-12-05] MEDS: SOLU-MEDROL 125 MG IVP SCH ×3 (09:53→20:51)
[2018-12-05] MEDS: ROCEPHIN 1 GM in SODIUM CHLORIDE 50 ML IV SCH (09:53)
[2018-12-05] MEDS: XOPENEX 1.25 MG NEB SCH ×3 (11:10→23:15)
[2018-12-05] MEDS: MEVACOR PO SCH (16:44)
[2018-12-05] MEDS: GLUCOPHAGE PO SCH (16:45)
[2018-12-05] MEDS: PULMICORT 1 MG/2 ML NEB SCH (17:12)
[2018-12-05] MEDS: ATIVAN PO SCH (20:52)
[2018-12-05] MEDS: TRIGLIDE PO SCH (20:52)
[2018-12-06] MEDS: XOPENEX 1.25 MG NEB SCH ×4 (05:40→22:48)
[2018-12-06] MEDS: PULMICORT 1 MG/2 ML NEB SCH ×2 (05:40→17:53)
[2018-12-06] MEDS: LASIX TAB PO SCH (05:42)
[2018-12-06] MEDS: SOLU-MEDROL 125 MG IVP SCH ×3 (05:42→21:11)
[2018-12-06] MEDS: PROTONIX PO SCH (05:42)
[2018-12-06] MEDS: HUMULIN R SUBCUT PRN ×4 (05:43→21:10)
[2018-12-06] MEDS: PLAVIX PO SCH (08:39)
[2018-12-06] MEDS: ASPIRIN CHEWABLE PO SCH (08:39)
[2018-12-06] MEDS: NEURONTIN PO SCH ×2 (08:39→21:09)
[2018-12-06] MEDS: COZAAR PO SCH (08:40)
[2018-12-06] MEDS: REQUIP PO SCH ×2 (08:40→21:10)
[2018-12-06] MEDS: K-DUR PO SCH ×2 (08:40→17:20)
[2018-12-06] MEDS: COREG PO SCH ×2 (08:40→21:09)
[2018-12-06] MEDS: GLUCOPHAGE PO SCH ×2 (08:40→17:21)
[2018-12-06] MEDS: ROCEPHIN 1 GM in SODIUM CHLORIDE 50 ML IV SCH (09:17)
--- NOTE | 2018-12-06 09:35 | PCM.PROG ---
Attending Provider: ATTENDING PROVIDER: Dr. BRINDA SMITH DATE OF SERVICE: 12/06/18 SUBJECTIVE: This 73 year old WHITE/ F was hospitalized 12/04/18 with acute respiratory failure. The patient is still smoking, noncompliant of lifestyle, medications and followup. Prognosis is poor. She had severe hypoxemia with acute respiratory acidosis. is in the room. REVIEW OF SYSTEMS: CONSTITUTIONAL: No night sweats. No fatigue, malaise, lethargy. No fever or chills. HEENT: Eyes: No visual changes. No eye pain. No eye discharge. ENT: No runny nose. No epistaxis. No sinus pain. No odynophagia. No congestion. RESPIRATORY: No cough, no congestion. No hemoptysis. No shortness of breath. CARDIOVASCULAR: No angina symptoms. No CHF symptoms. No atypical chest pain for CAD. No palpitations. No orthopnea.. GASTROINTESTINAL: Appetite has improved. No abdominal pain. No nausea or vomiting. No diarrhea or constipation. No hematemesis. No hematochezia. GENITOURINARY: No urgency. No frequency. No dysuria. No hematuria. No obstructive symptoms. No discharge. No pain. No significant abnormal bleeding. MUSCULOSKELETAL: No musculoskeletal pain; no joint swelling. NEUROLOGICAL: Awake, alert, oriented to time, place and person. No headache. No neck pain. No syncope. No seizures. No dizziness. PSYCHIATRIC: Not anxious. No depression. No suicidal thoughts. No homicidal thoughts. SKIN: No rash. No lesions. No wounds. ENDOCRINE: No unexplained weight loss. No weight gain. HEMATOLOGIC/LYMPHATIC: No anemia. No purpura. No petechiae. No prolonged or excessive bleeding. No palpable lymph nodes. PHYSICAL EXAMINATION: GENERAL: The patient is awake, alert and oriented, lying/sitting in bed in no distress. VITAL SIGNS: Temperature 98.5 F, Pulse 74, Respiratory Rate 15, BP 144/65, Pulse Ox 96% HEENT: Head normocephalic, atraumatic. Eyes: Extraocular muscles are intact. Pupils are equal, round and reactive to light and accommodation. Ears: No lesions. Nose appeared normal. Throat: No exudate or erythema. NECK: Supple. No JVD, no carotid bruit. No lymphadenopathy or thyromegaly. LUNGS: Decreased breath sounds with good air entry. Clear to auscultation. Percussion note normal. Chest symmetrical. HEART: S1, S2, no S3. No murmurs. No cyanosis or clubbing. No ascites. Pulses: Dorsalis pedis and posterior tibial pulses +1 to +2 both sides. ABDOMEN: Soft. Non-tender. Bowel sounds active. No CVA tenderness. No mass felt. EXTREMITIES: No edema. Full range of motion of all extremities, equal. NEUROLOGIC: No focal deficit. Cranial nerves II through XII are grossly intact. No headache, no double vision or headache. SKIN: Warm and dry. Intact. Turgor-normal. LYMPHATIC: No palpable lymph nodes/no lymphedema. MUSCULOSKELETAL: Normal joints with no swelling. Muscle tone is normal. LAB REVIEW: 12/06/18 05:00 12/06/18 05:00 12/06/18 05:00: Sodium 137.8, Potassium 3.64, Chloride 99.4, Carbon Dioxide 35.8 H, Anion Gap 6.24, BUN 31.3 H, Creatinine 1.01, Estimated GFR (MDRD) 54.00 , BUN/Creatinine Ratio 30.99, Glucose 298.3 H, Calcium 8.34 L, Total Bilirubin 0.43, AST 13.6 L, ALT 23.9, Alkaline Phosphatase 56.0, Total Protein 4.47 L, Albumin 2.71 L, Globulin 1.76, Albumin/Globulin Ratio 1.53 12/06/18 05:00: WBC 12.91 H, RBC 3.91 L, Hgb 9.8 L, Hct 32.4 L, MCV 82.9, MCH 25.1 L, MCHC 30.2 L, RDW Coeff of Jerome 19.6 H, Plt Count 196, Immature Gran % ( Auto) 0.9, Neut % (Auto) 94.0, Lymph % (Auto) 3.1 L, [place] % (Auto) 1.9, Eos % ( Auto) 0.0, Baso % (Auto) 0.1, Immature Gran # (Auto) 0.1, Neut # (Auto) 12.2 H, Lymph # (Auto) 0.4 L, [place] # (Auto) 0.2 L, Eos # (Auto) 0.0, Baso # (Auto) 0.0 12/06/18 05:00: Puncture Site Lrad, O2 Saturation 93.0 L, ABG pH 7.424, ABG pCO2 51.8 H, ABG pO2 67.0 L, ABG HCO3 33.9 H, ABG Total CO2 35 H, ABG Base Excess 9 H, Nathanael Test +, O2 Delivery Device Bipap, FiO2 % 32.0 12/05/18 10:05: Puncture Site R rad, O2 Saturation 96.0, ABG pH 7.473 H, ABG pCO2 49.7 H, ABG pO2 78.0 L, ABG HCO3 36.4 H, ABG Total CO2 38 H, ABG Base Excess 13 H, Nathanael Test +, O2 Delivery Device Vapotherm, FiO2 % 32.0 ASSESSMENT: Please see below. 1. Acute respiratory failure seems to be controlled with oxygen saturation 99% on 2L high flow. 2. Kidney functions are acceptable. 3. Hyperglycemia likely from steroids. 4. Anemia, stable. PLAN: 1. Diet discussed with her. 2. Counseling for smoking done. Plan and coordination of the patient's care discussed in the presence of Secretarial Teacher and nurse. CONDITION: Stable SCRIBED BY: IKE PIERCE Computer Language Coder scribed while in presence of service performed by Dr. BRINDA SMITH on 12/06/18 ([id number])
--- NOTE | 2018-12-06 14:06 | RS.PTINEVL ---
Subjective - Patient information Date of Evaluation: 12/06/18 Date of Arrival on Unit: 12/04/18 Admitted From:: Home Diagnosis: respiratory failure, COPD exacerbation Usual Living Arrangement: With Spouse Home Environment: House, Ramp Medical History: Hypertension, COPD, Diabetes, Arthritis LATEX ALLERGY?: No Medications: see chart Subjective Information/ Patient Comments:: pt states that she is going home tomorrow. Difficult to get straight answer regarding prior level of function. pt states at one time, she did not use AD, then stated she occasionally uses rwx. - Level of function Prior to this admission, the patient could do the following:: Independent Ambulation Current Level of Function: Dependent Current Equipment Used at Home: Rolling walker, oxygen, nebulizer, glucometer, pulse ox Interventions - Objective Patient Orientation: Person, Place Current Interventions: IV's, Oxygen, Telemetry Observation: pt on vapotherm respiratory is weaning pt today. Range of Motion - ROM Right Upper Extremity AROM: WFL's Left Upper Extremity AROM: WFL's Right Lower Extremity AROM: WFL's Left Lower Extremity AROM: WFL's Muscle Strength - Muscle Strength Right Upper Extremity Strength: Mild Weakness (grossly 4-/5) Left Upper Extremity Strength: Mild Weakness (grossly 4-/5) Right Lower Extremity Strength: Mild Weakness (hip flex 3+/5, knee flex/ext 4-/5 , ankle DF/PF 4-/5) Left Lower Extremity Strength: Mild Weakness (hip flex 3+/5, knee flex/ext 4-/5 , ankle DF/PF 4-/5) Sensation - Sensation Right Upper Extremity Sensation: Intact/Normal Left Upper Extremity Sensation: Intact/Normal Right Lower Extremity Sensation: Intact/Normal Left Lower Extremity Sensation: Intact/Normal Palpation Palpation Findings: None/Normal Balance - Sitting Balance and Reactions Static Sitting Balance: Fair Dynamic Sitting Balance: Poor Sitting Equilibrium Reactions: Delayed Left, Delayed Right Sitting Protective Reactions: Delayed Left, Delayed Right - Standing Balance and Reactions Static Standing Balance: Poor Dynamic Standing Balance: Poor Standing Equilibrium Reactions: Delayed Left, Delayed Right Standing Protective Reactions: Delayed Left, Delayed Right Functional Mobility - Bed Mobility Rolling R/L: Min Assist Supine to Sit: Min Assist, Mod Assist Sit to Supine: Min Assist, Mod Assist - Transfers Sit to Stand: Min Assist, 2 person assist Stand to Sit: Min Assist, 2 person assist Stand Pivot Transfers: Min Assist, Mod Assist, 2 person assist Comments:: stand pivot bed to chair with min to mod x 2. - Safety Awareness Safety Awareness: Poor TOMY INDEX SCORE: n/a Treatment time - Units charged Gait trainin - Time with patient Length of Evaluation: 21 Total treatment time: 23 Patient Education - Education Patient Education: Activity Modification, Education of Plan of Care Teaching Recipient: Patient Teaching Methods: Discussion Comments: discussion with resp therapy regarding plan for weaning vapotherm Assessment - Assessment Problem List:: Decreased level of function, Requires training/education, Decreased safety/Risk of falls, Weakness, Cognitive status limits abilities Rehab Potential: Good Further Therapy Indicated?: Yes Candidate for Swing Bed for Therapy Services?: Feel pt may be candidate for swing bed if agreeable Evaluation Complexity: HISTORY: Medium, EXAM OF BODY SYSTEMS: Medium, CLINICAL PRESENTATION: Medium, CLINICAL DECISION MAKING: Medium Short Term Goals GOAL #1: pt demonstrate rolling and bridging in bed with verbal cues. Goal to be met by: 12/08/18 GOAL #2: Transfer sup to/from sit min to CGA Goal to be met by: 12/08/18 GOAL #3: Sit to/from stand min x 1 Goal to be met by: 12/08/18 GOAL #4: pt amb 50ft with rwx with min x 1 with no LOB. Goal to be met by: 12/08/18 Senior Living Goals GOAL #1: Transfer sup to/from sit to/from stand CGA Goal to be met by: 12/11/18 GOAL #2: pt amb with rwx 75ft with CGA no LOB Goal to be met by: 12/11/18 GOAL #3: Improve dyn stand balance fair Goal to be met by: 12/11/18 Plan Plan of Care: Therapeutic EX, Therapeutic Activity Other:: gait training Frequency of Treatment: 1-2 X day, as tolerated Duration of Treatment: 5 days Anticipated Discharge Destination: undetermined Treatment Diagnosis (ICD 10 Codes): R 26.2 difficulty walking. R26.81 balance impaired. M62.81 muscle weakness Has the Physician been added for Co-signature?: Yes
[2018-12-06] MEDS: SODIUM CHLORIDE 1,000 ML IV SCH (15:29)
[2018-12-06] MEDS: MEVACOR PO SCH (17:21)
[2018-12-06] MEDS: ATIVAN PO SCH (21:09)
[2018-12-06] MEDS: TRIGLIDE PO SCH (21:09)
[2018-12-06] MEDS: JANUVIA PO SCH (21:10)
[2018-12-07] MEDS: XOPENEX 1.25 MG NEB SCH ×4 (04:55→22:40)
[2018-12-07] MEDS: PULMICORT 1 MG/2 ML NEB SCH ×2 (04:55→18:50)
[2018-12-07] MEDS: SOLU-MEDROL 125 MG IVP SCH ×3 (06:03→14:48)
[2018-12-07] MEDS: PROTONIX PO SCH (06:03)
[2018-12-07] MEDS: LASIX TAB PO SCH (06:03)
[2018-12-07] MEDS: HUMULIN R SUBCUT PRN ×4 (06:34→21:39)
[2018-12-07] MEDS: K-DUR PO SCH ×2 (09:04→16:51)
[2018-12-07] MEDS: NEURONTIN PO SCH ×2 (09:04→21:35)
[2018-12-07] MEDS: ASPIRIN CHEWABLE PO SCH (09:04)
[2018-12-07] MEDS: COZAAR PO SCH (09:05)
[2018-12-07] MEDS: PLAVIX PO SCH (09:05)
[2018-12-07] MEDS: REQUIP PO SCH ×2 (09:05→21:35)
[2018-12-07] MEDS: GLUCOPHAGE PO SCH ×2 (09:05→16:51)
[2018-12-07] MEDS: COREG PO SCH ×2 (09:05→21:35)
[2018-12-07] MEDS: JANUVIA PO SCH (09:05)
[2018-12-07] MEDS: ROCEPHIN 1 GM in SODIUM CHLORIDE 50 ML IV SCH (09:07)
[2018-12-07] MEDS: NYSTOP POWDER TP SCH ×2 (09:08→21:41)
[2018-12-07] MEDS: CALMOSEPTINE OINTMENT TP SCH (09:08)
--- NOTE | 2018-12-07 09:28 | PCM.PROG ---
Attending Provider: ATTENDING PROVIDER: Dr. BRINDA SMITH This patient is seen with Yulia Luis, Nurse Practitioner. DATE OF SERVICE: 12/07/18 SUBJECTIVE: This 73 year old WHITE/ F was hospitalized 12/04/18. The patient is sitting in chair resting comfortably. She has been getting confused at night. She is agreeable for swing bed when ready. She has weaned off of Vapotherm. She has a good appetite. REVIEW OF SYSTEMS: CONSTITUTIONAL: Weakness. No night sweats. No fatigue, malaise, lethargy. No fever or chills. HEENT: Eyes: No visual changes. No eye pain. No eye discharge. ENT: No runny nose. No epistaxis. No sinus pain. No odynophagia. No congestion. RESPIRATORY: No cough, no congestion. No hemoptysis. Shortness of breath. CARDIOVASCULAR: No angina symptoms. No CHF symptoms. No atypical chest pain for CAD. No palpitations. No orthopnea.. GASTROINTESTINAL: No abdominal pain. No nausea or vomiting. No diarrhea or constipation. No hematemesis. No hematochezia. GENITOURINARY: No urgency. No frequency. No dysuria. No hematuria. No obstructive symptoms. No discharge. No pain. No significant abnormal bleeding. MUSCULOSKELETAL: No musculoskeletal pain; no joint swelling. NEUROLOGICAL: Awake, alert, oriented to time, place and person. No headache. No neck pain. No syncope. No seizures. No dizziness. PSYCHIATRIC: Not anxious. No depression. No suicidal thoughts. No homicidal thoughts. SKIN: No rash. No lesions. No wounds. ENDOCRINE: No unexplained weight loss. No weight gain. HEMATOLOGIC/LYMPHATIC: No anemia. No purpura. No petechiae. No prolonged or excessive bleeding. No palpable lymph nodes. PHYSICAL EXAMINATION: GENERAL: The patient is awake, alert and oriented, sitting in chair in no distress. VITAL SIGNS: Temperature 98.5 F, Pulse 74, Respiratory Rate 25, BP 178/72, Pulse Ox 94% HEENT: Head normocephalic, atraumatic. Eyes: Extraocular muscles are intact. Pupils are equal, round and reactive to light and accommodation. Ears: No lesions. Nose appeared normal. Throat: No exudate or erythema. NECK: Supple. No JVD, no carotid bruit. No lymphadenopathy or thyromegaly. LUNGS: Severely diminished breath sounds. Clear to auscultation. Percussion note normal. Chest symmetrical. HEART: S1, S2, no S3. No murmurs. No cyanosis or clubbing. No ascites. Pulses: Dorsalis pedis and posterior tibial pulses +1 to +2 both sides. ABDOMEN: Soft. Non-tender. Bowel sounds active. No CVA tenderness. No mass felt. EXTREMITIES: Trace leg edema. Full range of motion of all extremities, equal. NEUROLOGIC: No focal deficit. Cranial nerves II through XII are grossly intact. No headache, no double vision or headache. SKIN: Not dry. Intact. Turgor-normal. LYMPHATIC: No palpable lymph nodes/no lymphedema. MUSCULOSKELETAL: Normal joints with no swelling. Muscle tone is normal. LAB REVIEW: 12/07/18 05:30 12/07/18 05:30 12/07/18 05:30: Sodium 135.5, Potassium 4.06, Chloride 96.2 L, Carbon Dioxide 34.3 H, Anion Gap 9.06, BUN 28.4 H, Creatinine 0.88, Estimated GFR (MDRD) 63.00 , BUN/Creatinine Ratio 32.27, Glucose 359.3 H, Calcium 8.55, Total Bilirubin 0.73, AST 12.9 L, ALT 25.9, Alkaline Phosphatase 60.7, Total Protein 4.72 L, Albumin 2.98 L, Globulin 1.74, Albumin/Globulin Ratio 1.71 12/07/18 05:30: WBC 10.77 H, RBC 4.11 L, Hgb 10.4 L, Hct 34.0 L, MCV 82.7, MCH 25.3 L, MCHC 30.6 L, RDW Coeff of Jerome 20.0 H, Plt Count 194, Immature Gran % ( Auto) 0.7, Neut % (Auto) 93.9, Lymph % (Auto) 3.3 L, [place] % (Auto) 2.0, Eos % ( Auto) 0.0, Baso % (Auto) 0.1, Immature Gran # (Auto) 0.1, Neut # (Auto) 10.1 H, Lymph # (Auto) 0.4 L, [place] # (Auto) 0.2 L, Eos # (Auto) 0.0, Baso # (Auto) 0.0 12/07/18 04:20: Puncture Site Lb, O2 Saturation 94.0 L, ABG pH 7.518 H*, ABG pCO2 42.6, ABG pO2 65.0 L, ABG HCO3 34.7 H, ABG Total CO2 36 H, ABG Base Excess 12 H, Nathanael Test +, O2 Delivery Device Bipap, FiO2 % 32.0 12/06/18 14:15: Puncture Site R rad, O2 Saturation 95.0, ABG pH 7.441, ABG pCO2 48.1 H, ABG pO2 75.0 L, ABG HCO3 32.7 H, ABG Total CO2 34 H, ABG Base Excess 9 H , Nathanael Test +, O2 Delivery Device Nc, Oxygen Liter Flow 2.00 ASSESSMENT: Please see below. 1. Acute respiratory failure seems to be controlled with oxygen saturation 99% on 2L high flow. 2. Kidney functions are acceptable. 3. Hyperglycemia likely from steroids. 4. Anemia, stable. PLAN: 1. Solu-Medrol 100 q.12hr 2. ABGs at 8 p.m. and repeat in a.m. upon waking. Plan and coordination of the patient's care discussed in the presence of Farmworker Chicken Farm and nurse. CONDITION: Stable SCRIBED BY: IKE PIERCE Retail Field Supervisor scribed while in presence of service performed by Dr. Smith/Yulia Luis APRN on 12/07/18 ([id number])
--- NOTE | 2018-12-07 10:39 | RS.OTINEVL ---
Subjective - Patient information Date of Evaluation: 12/07/18 Date of Arrival on Unit: 12/04/18 Admitted From:: Emergency Dept Diagnosis: COPD PRECAUTIONS: At risk for falls Usual Living Arrangement: With Spouse Living Arrangement Comments: Pt lives in a one level small white house in [facility]. Pt has a RW and uses is intermittently at home. Pt reports she has never driven a car. Home Environment: House, Level/No stairs Medical History: Hypertension, CVA/TIA, COPD Medical History Comments:: TIA, COPD, CVA, RA, L TKA, L Shoulder 2005, Kidney stones, Gall bladder removed., Surgical History: Knee Replacement Surgical History Comments:: Gall bladder, L TKA, L Shoulder, Hysterectomy, Subjective Information/ Patient Comments:: "I can dress myself at home. I don't drive. I cook inside and he cooks outside. " - Level of function Prior to this admission, the patient could do the following:: Independent Ambulation Current Level of Function: Partially Dependent Current Equipment Used at Home: Rolling walker, oxygen, nebulizer, glucometer, pulse ox Pain Assessment - Pain Pain Score: 0 Interventions - Objective Patient Orientation: Person, Place, Situation Current Interventions: IV's, Oxygen, Telemetry Observation: Pt is weak and is not always motivated. Interventions - ROM Right Upper Extremity AROM: WFL's Left Upper Extremity AROM: WFL's - Strength Right Upper Extremity Strength: Mild Weakness Left Upper Extremity Strength: Mild Weakness - Sensation Right Upper Extremity Sensation: Intact/Normal Left Upper Extremity Sensation: Intact/Normal Balance - Sitting Balance Static Sitting Balance: Fair Dynamic Sitting Balance: Fair - Standing Balance Static Standing Balance: Poor Dynamic Standing Balance: Poor ADL Skills - Self Feeding Self Feeding: Independent - Grooming Grooming: CGA - Toilet Management Toileting Management: [facility] Functional Mobility - Bed Mobility Rolling R/L: Independent Scooting: Max Assist Supine to Sit: CGA Sit to Supine: CGA - Transfers Sit to Stand: [facility] Stand to Sit: [facility] Stand Pivot Transfers: CGA - Ambulation Weight Bearing Status: FWB Assistive Device Used: Rolling Walker Assistance needed with Ambulation: CGA, 2 person assist - Safety Awareness Safety Awareness: Fair TOMY INDEX SCORE: . Additional Treatment Performed - Additional units charged ADL: 16 - Time with patient Length of Evaluation: 20 Total treatment time: 36 Activities Would you be interested in leaving your room for activities?: Yes Would you enjoy group activities?: Yes Do you have difficulty with your vision?: Yes Patient Interests:: Reading Books/Magazines, Watching Television, Puzzles/Games , Visiting/Socializing Comments:: Hand work like beading. Patient Education Patient Education: Home Exercise Program, Home Safety, Education of Plan of Care Teaching Recipient: Patient Teaching Methods: Teach Back Method Used, Demonstration Assessment Problem List:: Decreased level of function, Decreased safety/Risk of falls, Weakness Rehab Potential: Good Further Therapy Indicated?: Yes Candidate for Swing Bed for Therapy Services?: yes if she cooperates Evaluation Complexity: HISTORY: Medium, EXAM OF BODY SYSTEMS: Medium, CLINICAL DECISION MAKING: Medium Short Term Goals - Goals GOAL 1: To be CGA with toilet transfers and personal hygiene. Goal to be met by: 12/11/18 GOAL 2: Pt to increase BUE strength to 4/5. Goal to be met by: 12/11/18 GOAL 3: Pt to increase dynamic standing activity to 10 minutes. Goal to be met by: 12/12/18 GOAL 4: Pt to be (I) with home exercise program Goal to be met by: 12/12/18 [facility] Goals GOAL 1: To be Mod-I with toilet transfers and personal hygiene. Goal to be met by: 12/14/18 GOAL 2: Pt to increase BUE strength to 4+/5. Goal to be met by: 12/14/18 GOAL 3: Pt to increase dynamic standing activity to 15 minutes for ADLS. Goal to be met by: 12/14/18 Plan Plan of Care: Therapeutic EX, Neuromuscular Re-Educ, Therapeutic Activity, Self- Care/Home Management Frequency of Treatment: 1-2 X day, as tolerated Duration of Treatment: 1 Week Anticipated Discharge Destination: Home (Pt to probably swing next week for therapy.) Treatment Diagnosis (ICD 10 Codes): Muscle weakness M62.81, Z74.1 Need for assistance with personal care. Has the Physician been added for Co-signature?: Yes
--- NOTE | 2018-12-07 10:45 | PN ---
DATE OF SERVICE: 12/04/18 SUBJECTIVE: The patient was seen and examined in the emergency room. She returned to the emergency room the third time in the past one month with shortness of breath, inability to breathe. The patient's arterial blood gases showed respiratory acidosis with c02 retention. The patient is oriented to time, place and person. is in the room. The patient has continued to smoke. Compliance is poor. PHYSICAL EXAMINATION: HEENT: Head normocephalic, atraumatic. Eyes: Extraocular muscles are intact. Pupils are equal, round and reactive to light and accommodation. Ears: No lesions. Nose appeared normal. Throat: No exudate or erythema. NECK: Supple. No JVD, no carotid bruit. No lymphadenopathy or thyromegaly. LUNGS: Decreased breath sounds with wheeze, expiratory, mild. Percussion note normal. Chest symmetrical. HEART: S1, S2, no S3. No murmurs. No cyanosis or clubbing. No ascites. Pulses: Dorsalis pedis and posterior tibial pulses +1 to +2 bilaterally. ABDOMEN: Soft. Nontender. Bowel sounds active. No CVA tenderness. No mass felt. EXTREMITIES: Trace edema. Full range of motion of all extremities, equal. NEUROLOGIC: No focal deficit. Cranial nerves II through XII are grossly intact. No headache, no double vision or headache. SKIN: Not dry. Intact. Turgor - normal. LYMPHATIC: No palpable lymph nodes/no lymphedema. MUSCULOSKELETAL: Normal joints with no swelling. Muscle tone is normal. ASSESSMENT/PLAN: On BIPAP her oxygen level, c02 is 100, pc02 approximately 90 with pH of 7.22. The patient's blood gases will be monitored. She will be put on BIPAP and the BIPAP parameters will be switched around to keep her pH and pc02 down. Will be started on steroids, antibiotics and nebs. CONDITION: Critical but stable. Prognosis is poor. This time the patient has agreed to stay in case her condition improves for pulmonary rehab type of physical therapy and she will be put on swing bed. PROGNOSIS: Guarded. TIME SPENT: More than 30 minutes. Plan and coordination of the patient's care discussed in the presence of nurse. DELICIA
--- NOTE | 2018-12-07 11:00 | PN ---
DATE OF SERVICE: 12/05/18 SUBJECTIVE: The patient was seen and examined with the nurse practitioner. The patient's respiratory failure seems to be resolving. p02 was 75, pc02 of 54, pH of 7.44, 95% saturation with Hc03 of 36, FI02 of 32% with BIPAP. We are going to try and wean her off BIPAP. She may need it at night, high flow oxygen; Vapotherm may be used. Will see how she does. Counseling for smoking again done. The patient is agreeable to stay here a little longer for her physical therapy. The is in the room. PHYSICAL EXAMINATION: HEENT: Head normocephalic, atraumatic. Eyes: Extraocular muscles are intact. Pupils are equal, round and reactive to light and accommodation. Ears: No lesions. Nose appeared normal. Throat: No exudate or erythema. NECK: Supple. No JVD, no carotid bruit. No lymphadenopathy or thyromegaly. LUNGS: Decreased breath sounds are clear to auscultation. Percussion note normal. Chest symmetrical. HEART: S1, S2, no S3. No murmurs. No cyanosis or clubbing. No ascites. Pulses: Dorsalis pedis and posterior tibial pulses +1 to +2 bilaterally. ABDOMEN: Soft. Nontender. Bowel sounds active. No CVA tenderness. No mass felt. EXTREMITIES: No edema. Full range of motion of all extremities, equal. NEUROLOGIC: No focal deficit. Cranial nerves II through XII are grossly intact. No headache, no double vision or headache. SKIN: Not dry. Intact. Turgor - normal. LYMPHATIC: No palpable lymph nodes/no lymphedema. MUSCULOSKELETAL: Normal joints with no swelling. Muscle tone is normal. ASSESSMENT: 1. Respiratory failure under control. 2. Blood sugar is out of control. PLAN: 1. We are going to start her on Metformin because her kidney functions are better along with Januvia. She is not a candidate for insulin therapy because she is practically unreliable. 2. The patient is noncompliant of lifestyle and medications. 3. She was given 40 of Solu-Medrol q.12 which was discontinued. She will be on Solu-Cortef more often than 8 hourly. 4. Zaroxolyn was given 2.5 twice a day by ER physician which is an error, was on 2 to 3 times a week as needed. That will be discontinued. Condition is otherwise stable. Prognosis is poor. TIME SPENT: Extensive. Plan and coordination of the patient's care discussed in the presence of nurse. DELICIA
[2018-12-07] MEDS: MEVACOR PO SCH (16:53)
[2018-12-07] MEDS: ATIVAN PO SCH (21:35)
[2018-12-07] MEDS: TRIGLIDE PO SCH (21:35)
[2018-12-08] MEDS: SOLU-MEDROL 125 MG IVP SCH (03:13)
[2018-12-08] MEDS: PULMICORT 1 MG/2 ML NEB SCH (05:00)
[2018-12-08] MEDS: XOPENEX 1.25 MG NEB SCH (05:00)
[2018-12-08 05:09] VITALS: TEMP 98.3
[2018-12-08 05:17] VITALS: BP 128/78
[2018-12-08] MEDS: LASIX TAB PO SCH (06:21)
[2018-12-08] MEDS: PROTONIX PO SCH (06:21)
[2018-12-08] MEDS: HUMULIN R SUBCUT PRN (06:51)
[2018-12-08] MEDS: JANUVIA PO SCH (08:45)
[2018-12-08] MEDS: NEURONTIN PO SCH (08:45)
[2018-12-08] MEDS: REQUIP PO SCH (08:45)
[2018-12-08] MEDS: PLAVIX PO SCH (08:46)
[2018-12-08] MEDS: ASPIRIN CHEWABLE PO SCH (08:46)
[2018-12-08] MEDS: COREG PO SCH (08:46)
[2018-12-08] MEDS: K-DUR PO SCH (08:46)
[2018-12-08] MEDS: GLUCOPHAGE PO SCH (08:47)
[2018-12-08] MEDS: COZAAR PO SCH (08:47)
[2018-12-08] MEDS: CALMOSEPTINE OINTMENT TP SCH ×2 (08:48→08:49)
[2018-12-08] MEDS: NYSTOP POWDER TP SCH (08:50)
--- NOTE | 2018-12-08 09:32 | PCM.PROG ---
Attending Provider: ATTENDING PROVIDER: Dr. BRINDA SMITH This patient is seen with Yulia Luis, Nurse Practitioner. DATE OF SERVICE: 12/08/18 SUBJECTIVE: This 73 year old WHITE/ F was hospitalized 12/04/18. The patient is restiing comfortably. She received home BIPAP last night and had issues with self administering. Will need further instructions. The patient agreeable to swing bed. REVIEW OF SYSTEMS: CONSTITUTIONAL: Weakness. No night sweats. No fatigue, malaise, lethargy. No fever or chills. HEENT: Eyes: No visual changes. No eye pain. No eye discharge. ENT: No runny nose. No epistaxis. No sinus pain. No odynophagia. No congestion. RESPIRATORY: No cough, no congestion. No hemoptysis. No shortness of breath. CARDIOVASCULAR: No angina symptoms. No CHF symptoms. No atypical chest pain for CAD. No palpitations. No orthopnea.. GASTROINTESTINAL: No abdominal pain. No nausea or vomiting. No diarrhea or constipation. No hematemesis. No hematochezia. GENITOURINARY: No urgency. No frequency. No dysuria. No hematuria. No obstructive symptoms. No discharge. No pain. No significant abnormal bleeding. MUSCULOSKELETAL: Improving leg edema. No musculoskeletal pain; no joint swelling. NEUROLOGICAL: Awake, alert, oriented to time, place and person. No headache. No neck pain. No syncope. No seizures. No dizziness. PSYCHIATRIC: Not anxious. No depression. No suicidal thoughts. No homicidal thoughts. SKIN: No rash. No lesions. No wounds. ENDOCRINE: No unexplained weight loss. No weight gain. HEMATOLOGIC/LYMPHATIC: No anemia. No purpura. No petechiae. No prolonged or excessive bleeding. No palpable lymph nodes. PHYSICAL EXAMINATION: GENERAL: The patient is awake, alert and oriented, lying/sitting in bed in no distress. VITAL SIGNS: Temperature 98.3 F, Pulse 65, Respiratory Rate 20, BP 128/78, Pulse Ox 95% HEENT: Head normocephalic, atraumatic. Eyes: Extraocular muscles are intact. Pupils are equal, round and reactive to light and accommodation. Ears: No lesions. Nose appeared normal. Throat: No exudate or erythema. NECK: Supple. No JVD, no carotid bruit. No lymphadenopathy or thyromegaly. LUNGS: Severely diminished breath sounds. No wheeze. Clear to auscultation. Percussion note normal. Chest symmetrical. HEART: S1, S2, no S3. No murmurs. No cyanosis or clubbing. No ascites. Pulses: Dorsalis pedis and posterior tibial pulses +1 to +2 both sides. ABDOMEN: Soft. Non-tender. Bowel sounds active. No CVA tenderness. No mass felt. EXTREMITIES: Trace leg edema. Full range of motion of all extremities, equal. NEUROLOGIC: No focal deficit. Cranial nerves II through XII are grossly intact. No headache, no double vision or headache. SKIN: Not dry. Intact. Turgor-normal. LYMPHATIC: No palpable lymph nodes/no lymphedema. MUSCULOSKELETAL: Normal joints with no swelling. Muscle tone is normal. LAB REVIEW: 12/08/18 05:00 12/08/18 05:00 12/08/18 05:00: Sodium 134.5, Potassium 3.84, Chloride 94.0 L, Carbon Dioxide 38.9 H, Anion Gap 5.44, BUN 30.3 H, Creatinine 0.97, Estimated GFR (MDRD) 56.00 , BUN/Creatinine Ratio 31.23, Glucose 309.9 H, Calcium 8.68, Total Bilirubin 0.72, AST 17.3, ALT 26.5, Alkaline Phosphatase 63.6, Total Protein 4.65 L, Albumin 2.91 L, Globulin 1.74, Albumin/Globulin Ratio 1.67 12/08/18 05:00: WBC 11.81 H, RBC 4.21, Hgb 10.8 L, Hct 34.9 L, MCV 82.9, MCH 25.7 L, MCHC 30.9 L, RDW Coeff of Jerome 20.5 H, Plt Count 181, Immature Gran % ( Auto) 0.6, Neut % (Auto) 91.9, Lymph % (Auto) 3.6 L, [place] % (Auto) 3.8, Eos % ( Auto) 0.0, Baso % (Auto) 0.1, Immature Gran # (Auto) 0.1, Neut # (Auto) 10.9 H, Lymph # (Auto) 0.4 L, [place] # (Auto) 0.5, Eos # (Auto) 0.0, Baso # (Auto) 0.0, Anisocytosis 1+ 12/08/18 04:32: Puncture Site Lb, O2 Saturation 95.0, ABG pH 7.510 H*, ABG pCO2 43.3, ABG pO2 68.0 L, ABG HCO3 34.5 H, ABG Total CO2 36 H, ABG Base Excess 11 H , Nathanael Test +, O2 Delivery Device Home bipap, Oxygen Liter Flow 3.00, FiO2 % 32.0 12/07/18 20:00: Puncture Site Lb, O2 Saturation 91.0 L, ABG pH 7.48 H, ABG pCO2 42.9, ABG pO2 57.0 L*, ABG HCO3 32 H, ABG Total CO2 33 H, ABG Base Excess 9 H, Nathanael Test +, O2 Delivery Device Bnc, Oxygen Liter Flow 2.00, FiO2 % 28.0 ASSESSMENT: Please see below. 1. Chronic respiratory failure. 2. Severe COPD - oxygen dependent. 3. c02 retention - controlled with BIPAP at night. 4. Leg edema - improving. PLAN: 1. Prednisone 10 mg p.o. b.i.d. 2. Discontinue Rocephin. 3. Discontinue Solumedrol. 4. Continue ABGs in the a.m. 5. Daily labs. 6. Telemetry for 48 hours. 7. Will swing for PT/OT and generalized weakness because of chronic respiratory failure. Plan and coordination of the patient's care discussed in the presence of Supervisor Fitting and nurse. CONDITION: Stable SCRIBED BY: IKE PIERCE Battery Plate Remover scribed while in presence of service performed by Dr. Smith/Yulia Luis APRN on 12/08/18 ([id number])
--- NOTE | 2018-12-11 10:56 | PN ---
DATE OF SERVICE: 12/07/18 SUBJECTIVE: The patient was seen and examined with the Nurse Practitioner. The patient's condition has improved. The patient is going to be discharged to the Swing Bed. The patient is strongly advised to quit smoking and strongly advised Pulmonary Rehab which she has agreed for now. She is DNR. She has multiple medical conditions. Her chronic lung disease is practically endstage. Diabetes is poorly controlled from her lifestyle. She does eat according to what she should. The is helpful. TIME SPENT: More than 30 minutes. Plan and coordination of the patient's care discussed in the presence of nurse. DELICIA
--- NOTE | 2018-12-11 10:58 | PN ---
12/04/18: Level 5 12/05/18: Intermediate 12/06/18: Intermediate 12/07/18: Intermediate 12/08/18: D as in discharge 12/08/18: Admission to Swing Bed Level 5 MTDD
--- NOTE | 2018-12-14 08:36 | DS ---
DATE OF SERVICE: 12/08/18 FINAL DIAGNOSIS: 1. ACUTE ON CHRONIC RESPIRATORY FAILURE. 2. WEAKNESS. 3. COPD, SEVERE - OXYGEN DEPENDENT. 4. C02 RETENTION - CONTINUOUS BIPAP HS 5. LEG EDEMA, IMPROVING. 6. DIABETES MELLITUS, TYPE 2 UNCONTROLLED. 7. HYPERTENSION. 8. DYSLIPIDEMIA. 9. GERD. 10. TIA. 11. ANXIETY. 12. NEUROPATHY. 13. RESTLESS LEG SYNDROME. 14. SMOKER. 15. NONCOMPLIANCE WITH LIFESTYLE, MEDICATIONS AND FOLLOWUPS. 16. LEFT SHOULDER REPLACEMENT. 17. LEFT KNEE REPLACEMENT. 18. CHOLECYSTECTOMY. 19. HYSTERECTOMY. 20. COLONOSCOPY, 2018 (DR. JUAREZ). DISCHARGE INSTRUCTIONS: Admitted to TCU. MEDICATIONS AT DISCHARGE: Aspirin 81 mg p.o. daily Lovastatin 40 mg p.o. 1700 Fenofibrate 54 mg p.o. bedtime Sitagliptin Phosphate (Januvia) 100 mg p.o. bedtime Budesonide/Formoterol two puff INH b.i.d. Ropinirole 1 mg p.o. b.i.d. Gabapentin 300 mg p.o. b.i.d. [place] 3 Fatty Acids/Fish Oil one cap p.o. b.i.d. Clopidogrel (Plavix) 75 mg one tab p.o. daily Ipratropium/Albuterol one vial neb q.i.d. Pantoprazole 40 mg p.o. q.d a.c. Calcium Carbonate/Vitamin D3 one each p.o. daily Carvedilol 25 mg p.o. b.i.d. Lisinopril/Hydrochlorothiazide one tab p.o. daily Zaroxolyn 2.5 mg p.o. b.i.d. Ativan 0.5 mg p.o. bedtime NEW PRESCRIPTIONS: None DISCONTINUED MEDICATIONS: None DIET INSTRUCTIONS: Heart Healthy ACTIVITY: As patient tolerates, PT/OT. SMOKING: Smoker. DISEASE SPECIFIC EDUCATION: Swing Bed admission for PT/OT, chronic respiratory failure and generalized weakness. Counseling for smoking done. Medications HOSPITAL COURSE: This is a 73-year-old white female with chronic respiratory failure who presented to the ER for about the third time in the past two months in acute respiratory failure. She was admitted to the Special Care Unit. She was retaining C02. Her ABGs were severely abnormal. She was placed on BIPAP for approximately two days, slowly weaned off BIPAP and placed on high flow oxygen Vapotherm in the day and then BIPAP at night. Her ABGs slowly started to improve. There was no evidence of CHF despite she did have leg edema which is likely due to prolonged use of steroids. Chest x-ray showed no acute process, did not seem to be any infectious process related to her lungs other than the fact that she had gone home with oxygen which she stated she did not wear all the time and she continued to smoke. Blood pressure was low initially and has steadily returned back to normal. Blood pressure medications were held initially. I discontinued her Zestoretic due to the fact that she has had persistent leg edema. Discontinued the Zestoretic and put her on Cozaar 50 mg daily as well as Lasix 20 mg p.o. daily with 10 of Potassium daily. She tolerated this well. Today she has wrinkling of her lower extremities with trace bilateral lower extremity edema. She qualified for home BIPAP. She received this machine last night. She is agreeable to participate in Transitional Care for PT and OT due to the fact that she does have chronic respiratory failure. She is severely weak. She has had three hospitalizations within the past two months for acute respiratory failure so she is in agreement. We have been monitoring her ABGs every morning. She seems to do well with oxygen during the day and BIPAP at night in order to help with the c02 retention. Today, lung sounds are clear but diminished but equal. She is only able to walk a short distance, is very short of breath with very minimal exertion which is the goal of physical therapy. She has also going to continue to work with the Cardiopulmonary Department to become more comfortable with the BIPAP machine that she is going to take home. She is agreeable for swing bed, will place her in swing bed and she is discharged from acute care. TIME SPENT: More than 60 minutes. DELICIA
== END 2018-12-08 10:38 | disposition swing bed (61) | DRG 637 ==
LOC: ED 13:51 → SCU 16:05
PROVIDERS: ADMIT Internal Medicine; ATTEND Internal Medicine
DX: E11.65 Type 2 diabetes mellitus with hyperglycemia (principal); J96.20 Acute and chronic respiratory failure, unspecified whether with hypoxia or hypercapnia; J44.1 Chronic obstructive pulmonary disease with (acute) exacerbation; E87.2 Acidosis; E78.5 Hyperlipidemia, unspecified; I10 Essential (primary) hypertension; K21.9 Gastro-esophageal reflux disease without esophagitis; F41.9 Anxiety disorder, unspecified; G62.9 Polyneuropathy, unspecified; G25.81 Restless legs syndrome; R06.02 Shortness of breath; R05 Cough; R06.00 Dyspnea, unspecified; R53.81 Other malaise; R53.1 Weakness; R60.0 Localized edema; Z86.73 Personal history of transient ischemic attack (TIA), and cerebral infarction without residual deficits; Z72.0 Tobacco use; Z99.81 Dependence on supplemental oxygen; Z91.19 Patient's noncompliance with other medical treatment and regimen
CPT/HCPCS: 36415; 80053; 82550; 82803; 82962; 83605; 84145; 84484; 85008; 85025; 87040; 87081; 93005; 93010; 94640; 94660; 96361; 96365; 96367; 96372; 96375; 97802; 99285